=== PATIENT | male | born 1955 | race Caucasian/White ===

== ENCOUNTER 2016-12-15 07:31 | Inpatient (IN) ==
[2016-12-15] MEDS ORDERED: *HR* FentaNYL (PF) 100 MCG/2 ML VIAL ONE (07:50)
[2016-12-15] MEDS ORDERED: Verapamil 5 MG/2 ML VIAL ONE (07:50)
[2016-12-15] MEDS ORDERED: 0.9 % Sodium Chloride 1,000 ML ONE ×3 (07:51→12:23)
[2016-12-15] MEDS ORDERED: Heparin 1,000 UNITS/500 mL NS 500 ML ONE (07:51)
[2016-12-15] MEDS ORDERED: *HR* Midazolam HCl 5 MG/5 ML VIAL IVP ONE (07:51)
[2016-12-15] MEDS ORDERED: *HR* Heparin 10,000 UNIT/10 ML VIAL ONE (07:51)
[2016-12-15] MEDS ORDERED: Nitroglycerin 1,000 MCG/10 ML VIAL IV ONE (07:52)
[2016-12-15] MEDS ORDERED: Tirofiban 12.5 MG/250ML 12.5 MG/250 ML BAG ONE (09:07)
--- NOTE | 2016-12-15 09:39 | Pre-Sedation Evaluation ---
Pre-sedation evaluation - Pre-sedation checklist Date of procedure: 12/15/16 Procedure: [facility] Recent Vitals: vs as documented in emr H&P (including ROS) documented in medical record: Yes Previous reaction to sedatives/anesthetics: No Dietary Status: NPO after Midnight Airway Assessment: Patient can open mouth completely, TMJ function normal Dentition: No loose teeth or bridges ASA Classification *see protocol: CLASS II-Mild systemic disease Plan of Care: Pt appropriate candidate for procedure/moderate/conscious sedation , Risks/benefits of procedure/sedation discussed w/ patient/family
--- NOTE | 2016-12-15 09:45 | Cardiology History & Physical ---
Date of Encounter: 12/15/16 Time of Encounter: 09:40 Assessment and Plan (1) STEMI (ST elevation myocardial infarction) Current Visit: No Status: Acute Anterior current of injury. Proceed with emergent LHC with 1% chance of complications including CVA//MELA/bleeding/contrast allergy/thyroid storm. Aspirin, plavix and heparin were given. EF assessment will be completed. Labs reviewed, EKG independently interpreted. Total critical care time 45 minutes. The assessment and plan as outlined above was discussed with the patient and/or family members who expressed understanding and agreement. All questions were answered. Qualifiers: Involved coronary artery: LAD coronary artery Qualified Code(s): I21.02 - ST elevation (STEMI) myocardial infarction involving left anterior descending coronary artery History of Present Illness HPI: Mr. Do is a 61 year old male with no previous cardiac history presents with severe retrosternal crushing chest pain starting last night and worsening this morning associated with mild dyspnea and dizziness. It radiated into his left arm and is worse with exertion. No significant improvement with NTG/ aspirin. Past Med Surg Social Fam HX - Past Medical History Medical history: GERD, hyperlipidemia, hypertension, migraine Psychiatric history: anxiety, bipolar, depression - Past Surgical History Surgical History: other - Social History Smoking Status: Current every day smoker Smokeless Tobacco Status: No Alcohol use: none Drug use: none Medications and Allergies Atorvastatin [Lipitor] 80 mg PO HS 02/23/16 [History] Lisinopril [Zestril] 20 mg PO DAILY 02/23/16 [History] Omeprazole [PriLOSEC] 20 mg PO DAILY 02/23/16 [History] PARoxetine HCl [Paroxetine HCl] 40 mg PO DAILY 12/15/16 [History] Propranolol LA (24 HR) [Inderal LA] 120 mg PO DAILY 12/15/16 [History] Tamsulosin [Flomax] 0.4 mg PO DAILY 12/15/16 [History] 3 Allergy/AdvReac Type Severity Reaction Status Date / Time Penicillins [PCN] Allergy Hives Verified 02/23/16 22:00 All Systems Review: A 10-system review of systems was performed and is negative for pertinent findings except as documented above in the HPI. - Constitutional Constitutional: no chills, no fever(s) - EENT Eyes: no blurred vision, no loss of vision Nose, mouth and throat: no bleeding gums, no epistaxis - Cardiovascular Cardiovascular: chest pain at rest, chest pain with exertion - Respiratory Respiratory: no hemoptysis, no wheezing - Gastrointestinal Gastrointestinal: no hematemesis, no hematochezia - Genitourinary Genitourinary: no dysuria, no hematuria - Musculoskeletal Musculoskeletal: no arthralgias, no myalgias - Integumentary Integumentary: no erythema, no unusual bruising - Neurological Neurological: no focal weakness, no syncope - Psychiatric Psychiatric: no anxiety, no depression - Hematological/Lymphatic Hematologic/Lymphatic: no easy bleeding, no easy bruising Physical Examination General: Conversant, Other (mildly distressed) HEENT: Atraumatic, Normocephaly Neck: No JVD Cardiac: No Murmur Lungs: Normal Breath Sounds Neuro: Alert and responsive Abdomen: Soft Skin: No rashes noted on visualized skin Musculoskeletal: No Chest Wall Tenderness Extremities: No Edema Results - EKG Interpretation EKG results cardiology: personally reviewed, sinus rhythm (anterior current of injury)
--- NOTE | 2016-12-15 09:52 | Invasive Diagnostic Lab Proc ---
Name: Christopher Do Date of Study: 12/15/2016 Date: 1955 Ht: 64.0in Medical Record#: [id number] Age: 61 Wt: 180.78lb Gender: Male BSA: 1.87 Order #: [id number] BMI: 31.03 Physicians Procedure Physician: Ted Crowe MD, [facility] Referring MD: Referring MD: Staff Name Position Time In Gail Kellogg RT (R) Scrub 09:07 AM Demetrio Zayas RN Home Improvement Contractor 09:08 AM Preeti Wayne RN Home Improvement Contractor 09:08 AM Aleta Steve RN Monitor 09:08 AM Indications Indication STEMI Procedures Performed Procedure PRQ CARD REVASC PR 1 VSL L HRT ARTERY/VENTRICLE ANGIO Pre-Procedure Checklist Informed consent is complete signed and on chart. H&P is on chart. ID band is on and ID verified with patient. Patient NPO for procedure The procedure was described for the patient and questions were answered. Blood Pressure: 130/78 ECG is on chart. Rhythm: NSR Plan of Care Patient will tolerate the procedure without complications. Adequate level of comfort will be maintained. Hemodynamics will remain stable Patient will recover from procedure without complications. Respiratory function will be maintained. Cardiac rhythm will remain stable. Patient temperature will be maintained. Patient and/or family have verbalized understanding of the procedure. Patient Education Chief Complaint/Reason for Test: Cardiac Cath Developmental Category: Adult (18-64 years) Developmentally Appropriate for Age: Yes Learning Barriers: None Education Needs: Procedure Education Method: Verbal Information Taught: Cardiac Cath Educational Evaluation: Able to repeat information Intravenous Access Time IV Size Location DC'd Fluid/Drip Rate Units RN 09:00 AM 20g 1 03/13" Patent On Arrival Rt Antecubital 0.9NaCl 25 ml/hr Allergies PCN (penicillin) Penicillins Vital Signs Time BP (mmHg) HR (bpm) O2 Sat. RR (bpm) LOC 09:04 AM 130 / 78 64 93 % 9 5 = Fully awake and oriented or at pre-proc level 09:09 AM 118 / 77 129 91 % 17 5 = Fully awake and oriented or at pre-proc level 09:14 AM 128 / 78 64 95 % 17 5 = Fully awake and oriented or at pre-proc level 09:19 AM 115 / 74 62 96 % 15 5 = Fully awake and oriented or at pre-proc level 09:24 AM 115 / 80 64 96 % 17 5 = Fully awake and oriented or at pre-proc level 09:29 AM 127 / 82 65 97 % 18 5 = Fully awake and oriented or at pre-proc level Procedural Medications Time Medication Dose Units Method Given By 09:00 AM Oxygen 2 L/min nasal cannula Preeti Wayne RN 09:05 AM Versed 2 mg Intravenous Preeti Wayne RN 09:05 AM Fentanyl 25 mcg Intravenous Preeti Wayne RN 09:10 AM Oxygen 4 L/min nasal cannula Preeti Wayne RN 09:11 AM Lidocaine 2% 20 ml Subcutaneous Ted Crowe MD, FACC 09:16 AM Heparin 3000 units Intravenous Preeti Wayne RN 09:18 AM Aggrastat Bolus: 42 ml Intravenous Preeti Wayne RN 09:18 AM Aggrastat 12.5mg/250ml 15 ml Intravenous Preeti Wayne RN ASA Classification: Emergent Procedure: ASA score is assumed Cierra Score Preprocedure Postprocedure Activity 2- Moves 4 extremities sustained head lift Activity 2- Moves 4 extremities sustained head lift Circulation 2- SBP +/= 20 points of pre-anesthetic level Circulation 2- SBP +/= 20 points of pre-anesthetic level Consciousness 2- Awake and alert oriented x 3 Consciousness 2- Awake and alert oriented x 3 O2 Saturation 2- Able to maintain O2 satruation of 92% on room air O2 Saturation 2- Able to maintain O2 satruation of 92% on room air Respiratory 2- Able to deep breathe and cough well Respiratory 2- Able to deep breathe and cough well Total Score 10 Total Score 10 Contrast Agent: Isovue Diagnostic Contrast: 131 ml Total Contrast: 131 ml Fluoro Dose: 277 mGy Activated Clotting Time Time Seconds to Clot 09:16 AM 210 09:34 AM 248 Procedure Log Time Note Enter By 08:34 AM CathStat 09:00 AM Hair removed from procedure site in procedure lab using clippers. Right wrist and right groin prepped with Chloraprep by Gail Kellogg (R), safety strap applied then patient was draped. Skin intact. ejohnson 09:00 AM Physician arrived 09:00 ejohnson 09:00 AM Felix and benjamín completed ejohnson 09:00 AM Sign in performed according to hospital policy. ejohnson 09:00 AM Time: 09:00 Oxygen on at 2 L/min per nasal cannula by Preeti Wayne RN ejohnson 09:00 AM Procedure start 09:05 ejohnson 09:04 AM Vitals capture started with the following parameters, Patient=Adult, Interval=5 min, Initial Ydtynygr=686 mmHg, Deflation Rate=5 mmHg, Cuff placed on Left Arm 09:04 AM CathStat 09:04 AM Case Start 09:04 AM HR=64 bpm, RKUM=231/78 mmhg, SpO2=93.0 %, Resp=9 B/min, Comment=sr 09:05 AM Time: 09:05 Versed 2 mg Intravenous Given by Preeti Wayne RN ejohnsevelia 09:05 AM Time: 09:05 Fentanyl 25 mcg Intravenous Given by Preeti Wayne RN ejohnson 09:05 AM Pt arrived to [address] at 09:00 ejohnson 09:06 AM Recorded ECG: HR=71 Condition=Condition 1 09:07 AM Pressure channel 3 zeroed. 09:08 AM Gail Kellogg RT (R) Position: Scrub Time in: 09:07 ejohnson 09:08 AM Demetrio Zayas RN Position: Home Improvement Contractor Time in: 09:08 ejohnson 09:08 AM Preeti Wayne RN Position: Home Improvement Contractor Time in: 09:08 ejohnson 09:08 AM Aleta Steve RN Position: Monitor Time in: 09:08 ejohnson 09:09 AM QK=386 bpm, YPXV=485/77 mmhg, SpO2=91.0 %, Resp=17 B/min, Comment=sr 09:11 AM Time: 09:10 Oxygen on at 4 L/min per nasal cannula by Preeti Wayne RN ejohnson 09:11 AM Time: 09:11 20 ml Lidocaine 2% to right groin Subcutaneous Given by Ted Crowe MD, [facility] ejohnson 09:12 AM Access obtained by percutaneous puncture. 6Fr 10cm Terumo [place] sheath placed in right Femoral artery. [id number] ejohnson 09:12 AM 6Fr EBU 3.5 Medtronic guide catheter was used to cannulate the PCI vessel successfully. reused? No ejohnson 09:13 AM Recorded Pressure: Ao, HR=87, Condition=Condition 1 (Aorta) Ao 105/77/91 09:13 AM LCA angiography performed in multiple views. ejohnson 09:14 AM .[address] [place] 150cm guide wire across target lesion- successful. reused? No ejohnson 09:14 AM HR=64 bpm, ETOL=908/78 mmhg, SpO2=95.0 %, Resp=17 B/min, Comment=sr 09:15 AM Inflation device was opened. ejohnson 09:15 AM Coronary Dominance: right ejohnson 09:15 AM Lesion found in Mid LAD. Pre Stenosis: 99 Pre CARLOS Flow: 1: Slow Penetration without Perfusion ejohnson 09:15 AM Lesion found in 1st Diagonal. Pre Stenosis: 90 Pre CARLOS Flow: 3: Complete and Brisk Flow/Perfusion ejohnson 09:15 AM Mid/Distal Left Anterior Descending Coronary Artery and diagonal branches with 99% stenosis. ejohnson 09:16 AM At 09:16 the ACT was 210 seconds. ejohnson 09:16 AM 2.0 mm x 12 mm Emerge Monorail balloon across target lesion- successful. reused? No ejohnson 09:16 AM Time: 09:16 Heparin 3000 units Intravenous Given by Preeti Wayne RN ejohnson 09:17 AM Balloon inflated @ 10 hung for 12 seconds ejohnson 09:18 AM Time: 09:18 Aggrastat Bolus: 42 ml Intravenous Given by Preeti Wayne RN [place] pump ejohnson 09:18 AM Time: 09:18 Aggrastat 12.5mg/250ml 15 ml Intravenous Given by Preeti Wayne RN [place] pump ejohnson 09:18 AM Balloon catheter removed intact. ejohnson 09:19 AM 2.25mm x 24mm Synergy drug-eluting stent across target lesion- successful Lot #[id number] ejohnson 09:19 AM HR=62 bpm, QSBE=905/74 mmhg, SpO2=96.0 %, Resp=15 B/min, Comment=sr 09:21 AM Stent deployed @ 16 hung for 31 seconds ejohnson 09:22 AM Stent delivery system removed intact. ejohnson 09:23 AM Guide wire removed intact. ejohnson 09:23 AM Guide catheter removed intact. ejohnson 09:23 AM Lesion found in Proximal Circumflex. Pre Stenosis: 40 Pre CARLOS Flow: 3: Complete and Brisk Flow/Perfusion ejohnson 09:23 AM Circumflex, Obtuse Marginal, Left Posterior Descending, and Left Posterolateral Coronary Arteries with 40 % stenosis. ejohnson 09:24 AM 5Fr FR 4 catheter inserted over the wire DNC ejohnson 09:24 AM Lesion found in 1st Marginal. Pre Stenosis: 30 Pre CARLOS Flow: 3: Complete and Brisk Flow/Perfusion ejohnson 09:24 AM HR=64 bpm, BZAH=483/80 mmhg, SpO2=96.0 %, Resp=17 B/min, Comment=sr 09:25 AM Recorded Pressure: Ao, HR=66, Condition=Condition 1 (Aorta) Ao 109/86/97 09:25 AM Catheter removed ejohnson 09:25 AM 5Fr Pigtail catheter inserted over the wire DNC ejohnson 09:26 AM Bolus angiogram of left Ventricle complete: 10 ml/sec for a total of 30 mls ejohnson 09:26 AM Lesion found in Mid RCA. Pre Stenosis: 40 Pre CARLOS Flow: 3: Complete and Brisk Flow/Perfusion ejohnson 09:26 AM Pressure channel 3 zero failed. 09:26 AM Pressure channel 3 zeroed. 09:26 AM Recorded Pressure: LV, HR=67, Condition=Condition 1 (Left Ventricle) LV 114/-4/7 09:27 AM Recorded Pressure: LV, Ao, HR=66, Condition=Condition 1 (Left Ventricle) LV 107/-4/10, (Aorta) Ao 94/57/75 09:27 AM Catheter removed ejohnson 09:27 AM Bolus angiogram of right Femoral complete: 2 ml/sec for a total of 4 mls ejohnson 09:27 AM Right Coronary, Right Posterior Descending Arteries with Right Posterolateral and Acute Marginal branches with 40 % stenosis. ejohnson 09:29 AM HR=65 bpm, IEPT=981/82 mmhg, SpO2=97 %, Resp=18 B/min 09:33 AM Procedure completed at 09:30 ejohnson 09:33 AM Sign out completed: Radiation Dose 276.54 mGy Fluoro Time: 3.2 Isovue 370 - 200ml contrast 131 ml given by Ted Crowe MD, FACC. Complications: NoneCardiac Rehab Consult needed: YesConfirmed administered medications: Yes ejohnson 09:33 AM Isovue 370 - 200ml,1 Bottle(s) used. ejohnson 09:33 AM Sheath left in place to be pulled on floor/holding area ejohnson 09:33 AM Post ECG NSR ejohnson 09:33 AM Post Blood Pressure 127/82 ejohnson 09:34 AM 09:33 Post Pulses Bilateral DP & PT 1+ ejohnson 09:34 AM Information taught Cardiac Cath and PCI ejohnson 09:34 AM Education needs Plan of Care and Responsibilities of Patient in Care ejohnson 09:34 AM Learning barriers :None ejohnson 09:34 AM Education Methods Verbal ejohnson 09:34 AM Education evaluation Able to repeat information ejohnson 09:35 AM Site status No bleeding/hematoma - Rt Groin as reported by Gail Kellogg RT (R) at 09:34 ejohnson 09:35 AM Opsite applied ejohnson 09:35 AM Plavix, Effient or Brilinta given Yes, [facility] ejohnson 09:37 AM At 09:34 the ACT was 248 seconds. ejohnson 09:38 AM attempted to call family, patient gave wrong phone number. ejohnson 09:44 AM Family not available, no answer at number given ejohnson 09:44 AM Complications: None ejohnson 09:44 AM Report given to Carmen JOHNSON Pt taken to ICU Room #10. 09:44 ejohnson 09:44 AM Patient out of room: 09:44 ejohnson Complications Complication None Hemodynamics Pressures Site Systolic/A Wave Diastolic/V Wave Mean AO 105 77 91 AO 109 86 97 LV 114 -4 7 LV 107 -4 10 AO 94 57 75 Post Procedure Information Blood Pressure: 127/82 mmHg Rhythm: NSR Post procedural instructions were given Site Checks Time Location Status Staff Sheath In? Note 09:34 AM Rt Groin No bleeding/hematoma Gail Kellogg RT (R) Yes Pulses Time Site Pre-Procedure Post-Procedure Note 12/15/2016 9:00:00 AM Bilateral DP & PT 1+ 9:33:00 AM Bilateral DP & PT 1+ Updated by Aleta Steve RN on 12/15/2016 9:45:36 AM Aleta Steve RN electronically signed on 12/15/2016 9:46:03 AM with status of Final
[2016-12-15] MEDS ORDERED: Nitroglycerin 0.4 MG TAB.SUBL SL PRN (10:07)
[2016-12-15] MEDS ORDERED: *HR* Morphine 2 MG/ML SYRINGE IVP PRN (10:07)
[2016-12-15] MEDS ORDERED: Ondansetron 4 MG/2 ML VIAL IVP PRN (10:07)
[2016-12-15] MEDS ORDERED: Tirofiban 12.5 MG/250ML 12.5 MG/250 ML BAG IVC SCH (10:15)
[2016-12-15] MEDS ORDERED: *HR* HYDROcodone/Acet 5/325 mg TABLET PO PRN (10:16)
[2016-12-15] MEDS ORDERED: *HR* OxyCODONE/APAP 5/325 TABLET PO PRN (10:16)
[2016-12-15] MEDS ORDERED: *HR* Atropine Sulfate 1 MG/10 ML SYRINGE ONE (12:22)
[2016-12-15] MEDS: Acetaminophen 325 MG TABLET PO PRN (20:07)
[2016-12-16 04:26] LABS: Basophils # 0.1 K/mcL (0.0-0.2); Basophils % 0.7 %; Eosinophils # 0.3 K/mcL (0.0-0.6); Eosinophils % 2.5 %; Hematocrit 46.2 % (37.5-50.1); Hemoglobin 15.6 g/dL (12.9-16.9); Immature Granulocytes % 0.6 % (0-4); Lymphocytes # 2.9 K/mcL (0.6-4.6); Lymphocytes % 24.7 %; Mean Corpuscular HGB Conc 33.8 g/dL (31.6-35.5); Mean Corpuscular Hemoglobin 30.5 pg (28.0-33.3); Mean Corpuscular Volume 90.2 fL (83.0-100.0); Mean Platelet Volume 10.9 fL (9.4-12.4); Monocytes # 1.2 K/mcL (0.0-1.3); Monocytes % 10.2 %; Neutrophils # 7.3 K/mcL (1.6-8.9); Platelet Count 201 K/mcL (140-400); Red Blood Count 5.12 M/mcL (4.19-5.50); Red Cell Distribution Width 12.7 % (11.5-14.5); Segmented Neutrophils % 61.3 %
[2016-12-16 04:37] LABS: BUN/Creatinine Ratio 17 (6-26); Blood Urea Nitrogen 14 mg/dL (8-26); Calcium 8.6 mg/dL (8.6-10.8); Carbon Dioxide 20 mEq/L (19-29); Chloride 109 mEq/L (98-109); Glucose 102 mg/dL (70-99); Osmolality,Calculated 283 (280-300); Potassium 4.1 mEq/L (3.5-4.5); Sodium 136 mEq/L (136-145); eGFR For African Americans > 60 (> 60); eGFR For Non-African Americans > 60 (> 60)
[2016-12-16] MEDS ORDERED: Aspirin 81 MG TAB.CHEW PO SCH (09:00)
--- NOTE | 2016-12-16 09:32 | Cardiology Progress Note ---
Date of Encounter: 12/16/16 Time of Encounter: 09:30 Assessment and Plan (1) STEMI (ST elevation myocardial infarction) Current Visit: No Status: Acute Per Cardiology: S/p Anterior STEMI. Trop 0.11. [facility] showed: Lesion Findings/Interventions * Left Main Coronary Artery The LMCA is angiographically free of disease. * Left Anterior Descending There is a 24 mm long, 99% stenosis in the Mid LAD. The lesion has a CARLOS flow of 1 and has thrombus present. An intervention was performed on the Mid LAD with a final stenosis of 0%. There were no lesion complications. The final CARLOS flow was 3. EBU 3.5 guide, [place] wire, 2.25 x 24mm Synergy. See procedure log for further details. * Circumflex There is a 40% stenosis in the Proximal Circumflex. The lesion has a CARLOS flow of 3. There is a 30% stenosis in the mid major Marginal. The lesion has a CARLOS flow of 3. * Right Coronary Artery There is a 40% stenosis in the Mid RCA. The lesion has a CARLOS flow of 3. ECHO: Impressions: LVEF 55-60%. Normal LV chamber size, wall thickness and overall function. Atypical septal motion consistent with bundle branch block. Mild segmental left ventricular systolic dysfunction. Mild left ventricular diastolic dysfunction. Normal right ventricular structure and function. No evidence of pulmonary hypertension. No significant valvular dysfunction. Left Ventricular Wall Motion: Rest Echo Findings The apical septal wall was hypokinetic. All other wall segments showed normal motion. S/p PTCA/MARYAN to mid LAD 99% lesion. On asa, statin, BB. Had plavix load, will add daily plavix, Has CR order. Plan to transfer to floor today, possible DC tomorrow. Qualifiers: Involved coronary artery: LAD coronary artery Qualified Code(s): I21.02 - ST elevation (STEMI) myocardial infarction involving left anterior descending coronary artery (2) Nicotine abuse Current Visit: Yes Status: Acute Per Cardiology: 5 minutes today providing smoking cessation counseling and reinforcement. Patient reports he is quitting effective yesterday. Denies need for patch at this time. Discussion w patient/family: The assessment and plan as outlined above was discussed with the patient and/or family members who expressed understanding and agreement. All questions were answered. Thank you for involving us in the care of your patient. Please call with any questions. Subjective Principal diagnosis: Anterior STEMI Interval history: Patient reports some mild chest soreness intermittently throughout the night, currently resolved. He denies any shortness of breath or palpitations. Denies any concerns from his right wrist or right groin site. Objective Vital Signs, Last 4 Hours Temp Pulse Resp BP Pulse Ox 12/16/16 08:00 74 16 122/88 94 12/16/16 07:43 64 12/16/16 07:33 98.0 F 12/16/16 07:00 58 18 113/82 94 12/16/16 06:00 68 20 111/82 94 General: Conversant, No Apparent Distress HEENT: Atraumatic, Normocephaly, Mucus Membranes Moist Neck: No JVD, Normal carotid pulses Cardiac: Reg Rate and Rhythm, Normal S1 and S2, No Murmur Lungs: Normal Breath Sounds, No Wheeze, Rales, Rhonchi Neuro: Alert and responsive, No focal deficits noted Abdomen: Soft, Non-Tender Skin: No rashes noted on visualized skin, Other (Right wrist site and right groin site intact, mild ecchymosis to right groin, no hematoma, no bleeding, right radial and right dorsalis pedis/right posterior tibial pulses 2+ palpable) Musculoskeletal: No Chest Wall Tenderness Extremities: No Clubbing, No Cyanosis, No Edema, Normal Pulses Results 12/16/16 04:06 12/16/16 04:06 Lab Results Laboratory Tests 12/15/16 07:35 Troponin I 0.11 H* Intake & Output 12/13/16 12/14/16 12/15/16 12/16/16 23:59 23:59 23:59 23:59 Intake Total 840 / 840 240 / 240 Output Total 1750 / 1750 850 / 850 Balance -910 / -910 -610 / -610 Weight 81.647 kg 83.6 kg Active Medications Acetaminophen (Tylenol) 650 mg PO Q6HR PRN PRN Reason: Mild Pain Stop: 06/16/17 10:17 Last Admin: 12/15/16 20:07 Dose: 650 mg Hydrocodone Bitart/Acetaminophen (Rumely 5-325 Mg) 1 tab PO Q4HR PRN PRN Reason: Moderate Pain Stop: 06/16/17 10:17 Aspirin (Aspirin) 81 mg PO DAILY SONAL Stop: 06/17/17 09:01 Last Admin: 12/16/16 08:06 Dose: 81 mg Diphenhydramine HCl (Benadryl) 25 mg PO HS PRN PRN Reason: Insomnia Stop: 06/16/17 10:17 Last Admin: 12/16/16 00:19 Dose: 25 mg Metoprolol Tartrate (Lopressor) 25 mg PO BID SONAL Stop: 06/16/17 21:01 Last Admin: 12/16/16 08:06 Dose: 25 mg Morphine Sulfate (Morphine Sulfate) 4 mg IVP Q3H PRN PRN Reason: Severe Pain (7-10) Stop: 06/16/17 10:08 Nitroglycerin (Nitroglycerin) 0.4 mg SL Q5MIN PRN PRN Reason: Chest Pain Stop: 06/16/17 10:08 Ondansetron HCl (Zofran) 4 mg IVP Q8HR PRN PRN Reason: Nausea And Vomiting Stop: 06/16/17 10:08 Oxycodone/Acetaminophen (Percocet 5/325) 1 each PO Q4HR PRN PRN Reason: Severe Pain Stop: 06/16/17 10:17 Rosuvastatin Calcium (Crestor) 40 mg PO HS SONAL Stop: 06/16/17 21:01 Last Admin: 12/15/16 20:07 Dose: 40 mg - Imaging and Cardiology Cardiac cath: report reviewed - EKG Interpretation EKG results cardiology: other (Telemetry reviewed no events noted. Remains sinus rhythm) Consult Discharge Plan - Plan Referrals: NONE,PCP [Primary Care Provider] -
[2016-12-16] MEDS: Acetaminophen 325 MG TABLET PO PRN (13:14)
[2016-12-16] MEDS ORDERED: Nitroglycerin 0.4 MG TAB.SUBL SL PRN (13:19)
[2016-12-16] MEDS ORDERED: *HR* OxyCODONE/APAP 5/325 TABLET PO PRN (13:19)
[2016-12-16] MEDS ORDERED: Ondansetron 4 MG/2 ML VIAL IVP PRN (13:19)
[2016-12-16] MEDS ORDERED: *HR* HYDROcodone/Acet 5/325 mg TABLET PO PRN (13:19)
[2016-12-16] MEDS ORDERED: Acetaminophen 325 MG TABLET PO PRN (13:19)
--- NOTE | 2016-12-16 13:40 | Electrocardiograph Report ---
[address] [place] [address] Test Date: 2016-12-15 Pat Name: Christopher Do Department: 109 Room: 10 Gender: M Mixer Tender: BROOKE : 1955 Requested By: Ted Crowe Order Number: [id number] Reading MD: Shamika Prieto Measurements Intervals [place] Rate: 59 P: 56 ME: 181 QRS: -22 QRSD: 88 T: 6 QT: 375 QTc: 373 Interpretive Statements SINUS BRADYCARDIA BORDERLINE LEFT AXIS DEVIATION LOW QRS VOLTAGE IN PRECORDIAL LEADS ST DEVIATION AND MODERATE T-WAVE ABNORMALITY, CONSIDER ANTERIOR ISCHEMIA Electronically Signed On 12-16-2016 13:39:13 EDT by Shamika Prieto
--- NOTE | 2016-12-17 08:10 | Discharge Summary ---
Date of Encounter: 12/17/16 Time of Encounter: 08:10 - Discharge Diagnosis (1) STEMI (ST elevation myocardial infarction) Priority: Primary Status: Acute Comments: Presented with acute Anterior STEMI. Qualifiers: Involved coronary artery: LAD coronary artery Qualified Code(s): I21.02 - ST elevation (STEMI) myocardial infarction involving left anterior descending coronary artery (2) Nicotine abuse Priority: Secondary Status: Chronic - Discharge Medications Prescriptions: Nitroglycerin 0.4 mg SL Q5MIN PRN #30 tab.subl PRN Reason: Chest Pain Clopidogrel [Plavix] 75 mg PO DAILY #30 tablet Metoprolol [Lopressor] 25 mg PO BID #60 tablet Rosuvastatin [Crestor] 40 mg PO HS #30 tablet Home Medications: Aspirin 81 mg PO DAILY tab.chew 12/17/16 [Rx] Clopidogrel [Plavix] 75 mg PO DAILY #30 tablet 12/17/16 [Rx] Metoprolol [Lopressor] 25 mg PO BID #60 tablet 12/17/16 [Rx] Nitroglycerin 0.4 mg SL Q5MIN PRN #30 tab.subl 12/17/16 [Rx] Rosuvastatin [Crestor] 40 mg PO HS #30 tablet 12/17/16 [Rx] Allergies/Adverse Reactions: 3 Allergy/AdvReac Type Severity Reaction Status Date / Time Penicillins [PCN] Allergy Hives Verified 02/23/16 22:00 Procedures/tests Complete & Pending: Procedures Performed prior 72 hours Category Date Time Status CL Cardiac Catheterization [CL] Stat Ginger Farmer 12/15/16 08:23 Completed ECG 12 lead ECG [ECG] Routine Y 12/16/16 07:00 Stop Req ECG 12 lead ECG [ECG] Stat Y 12/15/16 09:56 Completed EV echocardiogram Routine Y 12/15/16 09:56 Completed Date of admission: 12/15/16 09:40 Primary care physician: PCP NONE Consults: 12/15/16 09:56 Consult to Cardiac Rehabilitation-Phase1 [CONS] Routine Comment: Reason for Consult: AMI Call Completed: Yes Consult to Nurse Navigator [CONS] Routine Comment: Discharging clinician: Wily Eller Anticipated date of discharge: 12/17/16 - Patient Status Disposition: Home, Self-Care Condition: Good Functional capacity at discharge: independent ambulation Overall status at discharge: patient is progressing back to baseline - Discharge Instructions Follow Up With: NONE,PCP [Primary Care Provider] - Additional Instructions: RISK FACTORS: STOP SMOKING: If you smoke, STOP. Smoking or tobacco use significantly increases your risk of heart disease because nicotine causes the arteries to narrow or constrict. It also causes fats to stick to the artery. Your chances of having a heart attack are greatly increased if you continue to smoke. For more information, call the education line for smoking cessation 7-562-ILBJLCA EAT A LOW FAT/CHOLESTEROL/SODIUM DIET: This diet may help reduce your chances of having a heart attack. LIFTING: Avoid lifting anything more than 10 pounds for 5-7 days Prior to straining, laughing, sneezing and/or coughing, apply manual pressure directly over insertion site. ACTIVITY: You may walk or climb stairs as tolerated You can resume sexual activity as tolerated In general, you are encouraged to engage in a minimum of 30 minutes or more of moderate intensity physical activity, such as brisk walking, daily or at least 3 -4 times weekly BATHING Do not submerge the site into water (bath tub, hot tub, swimming pool) for 1 week. This can be a source for infection into the blood stream. You may shower after 24 hours SITE CARE: After 24 hours, you may remove the dressing and leave the site open to air. Keep the site clean and dry. Clean gently and pat dry. You can expect bruising and tenderness that gradually resolve within a week or two. Return to work as instructed per your physician Resume driving as instructed per physician Keep all scheduled follow up appointments Resume medications as instructed IMPORTANT: If prescribed a Platelet Aggregation Inhibitor such as, Plavix, Brilinta or Effient: Duration of therapy is minimum one year These medications are often used in combination with Aspirin in prevention of future heart attacks Never discontinue unless consult with your Ending Machine Operator STROKE (CVA) Risk factors for a stroke are: Age, cigarette smoking, diabetes, excessive alcohol consumption, family history, high blood pressure, overweight, physical inactivity, prior stroke, heart attack, diagnosis of carotid artery stenosis or other artery disease. Warning signs: Sudden numbness or weakness of the face, arm or leg; especially on one side of the body, sudden confusion, trouble speaking or understanding, sudden trouble seeing in one or both eyes, sudden trouble walking, dizziness, loss of balance or coordination, sudden severe headache with no cause. Call 911 or go to the Emergency Room. CONGESTIVE HEART FAILURE: If you have been diagnosed with Congestive Heart Failure (CHF) and your symptoms return, make an appointment with your physician Weigh yourself daily. Notify your physician if you have a weight gain of two or more pounds in one day or five or more pounds in one week. If you experience any difficulty breathing, please call 911 BLEEDING: Although the risk of bleeding is minimal, it can happen. If you have any bleeding from the site, apply firm pressure above the puncture site for 10-15 minutes. If the bleeding does not stop, continue manual pressure and call 911 Contact your physician if: You develop a fever greater than 101 degrees Fahrenheit Your site becomes reddened or has any drainage You have an increase in pain or burning at the site or if a large knot forms at the site. If you experience chest pain, shortness of breath, dizziness, or extreme tiredness, stop the activity and rest. Please notify your physicians office if you experience any of these symptoms and they are not relieved by rest please call 911! - Diet and Activity Diet: low fat, low cholesterol, low salt diet - Hospital Course Hospital course: Mr. Do is a 61 year old male presented as a transfer from [place] with anterior STEMI with troponin of 0.11 and status post left heart catheterization with S/p PTCA/MARYAN to mid LAD 99% lesion. No events noted on telemetry Echo completed and shows LVEF 55-60%, No significant valvular dysfunction. Prepping for DC to home in stable condition. Education provided regarding post cath and [place] care. Smoking cessation counseling reinforced. CP free. All questions answered. Educated on meds and aware to not stop asa/plavix for at least 1 year. Time spent discussing smoking cessation with patient: 3 to 10 minutes - Time Spent with Patient Total time spent providing and/or coordinating discharge services: Less than 30 minutes Physical Examination Vital Signs, Last 4 Hours Temp Pulse Resp BP Pulse Ox 12/17/16 06:59 97.8 F 88 12 108/78 98 12/17/16 04:39 97.8 F 62 14 105/72 97 General: Conversant, No Apparent Distress HEENT: Atraumatic, Normocephaly, Mucus Membranes Moist Neck: No JVD, Normal carotid pulses Cardiac: Reg Rate and Rhythm, Normal S1 and S2, No Murmur Lungs: Normal Breath Sounds, No Wheeze, Rales, Rhonchi Neuro: Alert and responsive, No focal deficits noted Abdomen: Soft, Non-Tender Skin: No rashes noted on visualized skin Musculoskeletal: No Chest Wall Tenderness Extremities: No Clubbing, No Cyanosis, No Edema, Normal Pulses
[2016-12-17] MEDS ORDERED: Aspirin 81 MG TAB.CHEW PO SCH (09:00)
[2016-12-17 10:30] VITALS: BP 114/73
== END 2016-12-17 12:35 | disposition home or self-care (01) | DRG 174 ==
LOC: ICNU 09:40 → 2NENU 12-16 18:11
PROVIDERS: ADMIT Emergency Medicine; ATTEND Emergency Medicine

== ENCOUNTER → 2017-01-30 18:02 | Observation (INO) ==
[2017-01-30 03:47] LABS: Basophils # 0.1 K/mcL (0.0-0.2); Basophils % 0.6 %; Eosinophils # 0.3 K/mcL (0.0-0.6); Eosinophils % 3.1 %; Hematocrit 40.1 % (37.5-50.1); Hemoglobin 13.8 g/dL (12.9-16.9); Immature Granulocytes % 0.4 % (0-4); Immature Platelets 5.7 % (1.1-6.1); Lymphocytes # 3.1 K/mcL (0.6-4.6); Lymphocytes % 31.9 %; Mean Corpuscular HGB Conc 34.4 g/dL (31.6-35.5); Mean Corpuscular Hemoglobin 31.4 pg (28.0-33.3); Mean Corpuscular Volume 91.3 fL (83.0-100.0); Mean Platelet Volume 10.5 fL (9.4-12.4); Monocytes % 10.2 %; Neutrophils # 5.2 K/mcL (1.6-8.9); Platelet Count 191 K/mcL (140-400); Red Blood Count 4.39 M/mcL (4.19-5.50); Red Cell Distribution Width 12.5 % (11.5-14.5); Segmented Neutrophils % 53.8 %
[2017-01-30 03:58] LABS: BUN/Creatinine Ratio 22 (6-26); Blood Urea Nitrogen 18 mg/dL (8-26); Calcium 8.6 mg/dL (8.6-10.8); Carbon Dioxide 20 mEq/L (19-29); Chloride 110 mEq/L (98-109); Glucose 96 mg/dL (70-99); Osmolality,Calculated 284 (280-300); Potassium 4.2 mEq/L (3.5-4.5); Sodium 136 mEq/L (136-145); eGFR For African Americans > 60 (> 60); eGFR For Non-African Americans > 60 (> 60)
--- NOTE | 2017-01-30 13:05 | Cardiology Consult Note ---
Date of Encounter: 01/30/17 Time of Encounter: 12:30 Assessment and Plan (1) Chest pain Current Visit: No Status: Acute Per Cardiology: 1 episode of chest pain with mild exertional activity with improvement with nitroglycerin pills. Troponins negative 2. ECG actually appears improved from previous baseline ECG at time of STEMI. Currently chest pain-free. Reviewed and discussed with Dr. Crowe, recommend addition of long-acting nitrate. Patient agreeable. Cardiology will sign off, reconsult as needed, follow-up scheduled. Qualifiers: Ischemic chest pain type: unspecified angina pectoris type Qualified Code(s ): I20.9 - Angina pectoris, unspecified (2) CAD (coronary artery disease) Current Visit: Yes Status: Chronic Per Cardiology: Recent STEMI with peak troponin 0.18 December 2016. Catheterization at that time showed mid LAD 99% lesion status post drug-eluting stent. Otherwise had nonobstructive CAD with proximal circumflex 40%, OM 3%, mid RCA 40%. Echo at that time showed EF preserved at 55-60%, and no significant valvular dysfunction , no pulmonary hypertension. On aspirin, Plavix, statin, beta anam. Qualifiers: Coronary Disease-Associated Artery/Lesion type: [place] artery [place] vs. transplanted heart: [place] heart Associated angina: angina presence unspecified Qualified Code(s): I25.10 - Atherosclerotic heart disease of [place] coronary artery without angina pectoris (3) Nicotine abuse Current Visit: No Status: Chronic Per Cardiology: Smoking cessation reinforced. Discussion w patient/family: The assessment and plan as outlined above was discussed with the patient who expressed understanding and agreement. All questions were answered. Thank you for involving us in the care of your patient. Please call with any questions. History of Present Illness Consult date: 01/30/17 Requesting physician: Keith Gamble Consult reason: CP Chief complaint: CP History of present illness: Mr. Do is a 61 year old male with a relevant past mental history of nicotine abuse, GERD, and recent STEMI December 2016. Cardiology consult for chest pain symptoms. Patient reports compliance with medications. Denies any concerns or complaints until yesterday when he was walking across his hallway and developed midsternal and bilateral upper shoulder "heaviness and achiness ". He reports symptoms similar to be expressed with his ID last month. Reports it lasted for about 10- 15 minutes total. Reports relief with one subinguinal nitroglycerin pill. Has not been utilizing prior to this event. He denies any dizziness, shows breath, palpitations, syncope, falls. Denies any active bleeding or blood loss. Denies any acute infectious process. Currently chest pain-free. He does report intermittent headaches over the past few weeks. Past Med Surg Social Fam HX - Past Medical History Source: patient, old records reviewed Medical history: GERD, hyperlipidemia, hypertension, migraine Psychiatric history: anxiety, bipolar, depression - Past Surgical History Surgical History: other - Social History Smoking Status: Former smoker Smokeless Tobacco Status: No Alcohol use: none Drug use: none - Family History Mother History Unknown: Yes Living Status: Hx Family Cancer: Yes Father History Unknown: Yes Living Status: Medications and Allergies Aspirin 81 mg PO DAILY tab.chew 12/17/16 [Rx] Clopidogrel [Plavix] 75 mg PO DAILY #30 tablet 12/17/16 [Rx] Metoprolol [Lopressor] 25 mg PO BID #60 tablet 12/17/16 [Rx] Nitroglycerin 0.4 mg SL Q5MIN PRN #30 tab.subl 12/17/16 [Rx] Atorvastatin [Lipitor] 80 mg PO HS 01/29/17 [History] raNITIdine HCl [Ranitidine HCl] 150 mg PO HS 01/29/17 [History] 3 Allergy/AdvReac Type Severity Reaction Status Date / Time Penicillins [PCN] Allergy Hives Verified 01/30/17 10:52 All Systems Review: A 10-system review of systems was performed and is negative for pertinent findings except as documented above in the HPI. - Cardiovascular Cardiovascular: as per HPI, chest pain with exertion Physical Examination Vital Signs, Last 4 Hours Temp Pulse Resp BP Pulse Ox 01/30/17 11:13 98.2 F 58 17 104/66 94 General: Conversant, No Apparent Distress HEENT: Atraumatic, Normocephaly, Mucus Membranes Moist Neck: No JVD, Normal carotid pulses Cardiac: Reg Rate and Rhythm, Normal S1 and S2, No Murmur Lungs: Normal Breath Sounds, No Wheeze, Rales, Rhonchi Neuro: Alert and responsive, No focal deficits noted Abdomen: Soft, Non-Tender Skin: No rashes noted on visualized skin Musculoskeletal: No Chest Wall Tenderness Extremities: No Clubbing, No Cyanosis, No Edema, Normal Pulses Results 01/30/17 03:40 01/30/17 03:40 Lab Results Laboratory Tests 01/30/17 01/30/17 01/30/17 03:40 03:40 10:14 Magnesium 2.0 Troponin I 0.01 0.00 Active Medications Acetaminophen (Tylenol) 650 mg PO Q6HR PRN PRN Reason: Mild Pain (1-3) Stop: 08/01/17 03:31 Aspirin (Aspirin) 81 mg PO DAILY [facility] Stop: 08/01/17 09:01 Last Admin: 01/30/17 08:07 Dose: 81 mg Atorvastatin Calcium (Lipitor) 80 mg PO HS [facility] Stop: 08/01/17 21:01 Clopidogrel Bisulfate (Plavix) 75 mg PO DAILY [facility] Stop: 08/01/17 09:01 Last Admin: 01/30/17 08:07 Dose: 75 mg Famotidine (Pepcid) 20 mg PO HS [facility] Stop: 08/01/17 21:01 Sodium Chloride (0.9 % Sodium Chloride) 1,000 mls @ 100 mls/hr IVC .Q10H [facility] Stop: 01/30/17 23:29 Last Admin: 01/30/17 03:49 Dose: 100 mls/hr Isosorbide Mononitrate (Imdur) 30 mg PO DAILY [facility] Stop: 08/01/17 13:16 Metoprolol Tartrate (Lopressor) 25 mg PO BID [facility] Stop: 08/01/17 09:01 Last Admin: 01/30/17 08:07 Dose: 25 mg Morphine Sulfate (Morphine Sulfate) 2 mg IVP Q4HR PRN PRN Reason: Severe Pain (7-10) Stop: 08/01/17 03:31 Naloxone HCl (Narcan) 0.4 mg IVP Q2MIN PRN PRN Reason: Opioid Reversal Stop: 08/01/17 03:31 Nitroglycerin (Nitroglycerin) 0.4 mg SL Q5MIN PRN PRN Reason: Chest Pain Stop: 08/01/17 03:30 Ondansetron HCl (Zofran) 4 mg IVP Q8HR PRN PRN Reason: Nausea And Vomiting Stop: 08/01/17 03:31 - Imaging and Cardiology Echo: report reviewed Cardiac cath: report reviewed - EKG Interpretation EKG results cardiology: personally reviewed (SR Flipped T waves V1 through V5-- ECG appears improved from previous baseline ECG last month.) Consult Discharge Plan - Plan Referrals: Constance Mckeon CNP [Primary Care Provider] -
[2017-01-30 15:00] VITALS: BP 111/71
--- NOTE | 2017-01-30 16:26 | Discharge Summary ---
Date of Encounter: 01/30/17 Time of Encounter: 16:19 - Discharge Diagnosis (1) Chest pain Priority: Primary Status: Acute Qualifiers: Ischemic chest pain type: unspecified angina pectoris type Qualified Code(s ): I20.9 - Angina pectoris, unspecified (2) Nicotine abuse Priority: Secondary Status: Chronic (3) CAD (coronary artery disease) Priority: Secondary Status: Chronic Qualifiers: Coronary Disease-Associated Artery/Lesion type: [place] artery [place] vs. transplanted heart: [place] heart Associated angina: angina presence unspecified Qualified Code(s): I25.10 - Atherosclerotic heart disease of [place] coronary artery without angina pectoris - Discharge Medications Prescriptions: Nitroglycerin 0.4 mg SL Q5MIN PRN #30 tab.subl PRN Reason: Chest Pain Isosorbide MONOnitrate (24 HR) [Imdur] 30 mg PO DAILY #30 tab.er.24h Home Medications: Aspirin 81 mg PO DAILY tab.chew 12/17/16 [Rx] Clopidogrel [Plavix] 75 mg PO DAILY #30 tablet 12/17/16 [Rx] Metoprolol [Lopressor] 25 mg PO BID #60 tablet 12/17/16 [Rx] Atorvastatin [Lipitor] 80 mg PO HS 01/29/17 [History] raNITIdine HCl [Ranitidine HCl] 150 mg PO HS 01/29/17 [History] Acetaminophen [Tylenol] 650 mg PO Q6HR PRN tablet 01/30/17 [Rx] Isosorbide MONOnitrate (24 HR) [Imdur] 30 mg PO DAILY #30 tab.er.24h 01/30/17 [ Rx] Nitroglycerin 0.4 mg SL Q5MIN PRN #30 tab.subl 01/30/17 [Rx] Allergies/Adverse Reactions: 3 Allergy/AdvReac Type Severity Reaction Status Date / Time Penicillins [PCN] Allergy Hives Verified 01/30/17 10:52 Date of admission: 01/30/17 00:58 Primary care physician: Constance Mckeon CNP Consults: 01/30/17 03:32 Consult to Physician [CONS] Routine Consulting Provider: Amanda Mueller Reason for Consult: CP, recent STEMI and stent Call Completed: No Discharging clinician: Laura Blanco Anticipated date of discharge: 01/30/17 - Patient Status Disposition: Home, Self-Care Condition: Good Overall status at discharge: patient is progressing back to baseline - Discharge Instructions Follow Up With: Constance Mckeon CNP [Primary Care Provider] - - Diet and Activity Activity: resume usual activities as tolerated Diet: advance to your usual diet, low fat, low cholesterol, low salt diet Hospital course: Mr. Do is a 61 year old male recently had an HI and was seen by cardiology with stent placement and been started on beta anam and aspirin and Plavix. He came in with chest pain but troponins were negative as well as EKG. Cardiology is comfortable to discharge him. He has been started on long and nitrates. Prescription given. Strongly recommended to quit smoking and talked to his family doctor in this regard and use Nicotine patch - Time Spent with Patient Total time spent providing and/or coordinating discharge services: Greater than 30 minutes - Constitutional Vitals: Temp Pulse Resp BP Pulse Ox 97.6 F 86 16 111/71 95 01/30/17 14:59 01/30/17 14:59 01/30/17 14:59 01/30/17 14:59 01/30/17 14:59 - Head Head exam: Present: atraumatic, normocephalic - Eye Eye exam: Present: PERRL, conjuntiva pink, sclera anicteric Pupils: Present: PERRL - Neck Neck exam general surgery: Present: supple, trachea midline. Absent: lymphadenopathy - Respiratory Respiratory exam: Present: CTAB. Absent: accessory muscle use, rales, rhonchi, wheezes - Cardiovascular Cardiovascular exam: Present: RRR, +S1, +S2. Absent: diastolic murmur, gallop, rubs, systolic murmur - GI/Abdominal GI/Abdominal exam: Present: normal bowel sounds, soft, no peritoneal signs. Absent: distended, tenderness - Extremities Exam Extremities exam: Present: warm, radial pulses palpable and symmetrical. Absent : calf tenderness, cyanotic, pedal edema - Neurological Exam Neurological exam: Present: CN II-XII intact, oriented X3, no focal deficits. Absent: pronater drift, facial droop, speech deficit - Skin Skin exam: Present: dry, intact
[~2017-01-30 18:02] MED LIST: *HR* Morphine 2 MG/ML SYRINGE IVP PRN; 0.9 % Sodium Chloride 1,000 ML IVC SCH; Acetaminophen 325 MG TABLET PO PRN; Aspirin 81 MG TAB.CHEW PO SCH; Famotidine 20 MG TABLET PO SCH; Isosorbide MONOnitrate (24 HR) 30 MG TAB.ER.24H PO SCH; Naloxone 0.4 MG/ML INJ IVP PRN; Nitroglycerin 0.4 MG TAB.SUBL SL PRN; Ondansetron 4 MG/2 ML VIAL IVP PRN
--- NOTE | 2017-01-31 07:38 | Internal Med History&Physical ---
Date of Encounter: 01/30/17 Time of Encounter: 03:00 Assessment and Plan (1) Precordial chest pain Status: Acute We will place the patient on observation. Trend troponin. Monitor on telemetry. Given recent history of acute CO we will consult cardiology. Will use nitroglycerin for chest pain. (2) CAD (coronary artery disease) Status: Chronic Continue with aspirin and Plavix and metoprolol. Qualifiers: Coronary Disease-Associated Artery/Lesion type: [place] artery [place] vs. transplanted heart: [place] heart Associated angina: angina presence unspecified Qualified Code(s): I25.10 - Atherosclerotic heart disease of [place] coronary artery without angina pectoris (3) Nicotine abuse Status: Chronic I have reinforced the importance of smoking cessation for cardiovascular health. He has quit smoking 1 month ago and withdrawal symptoms have resolved. Internal Medicine - H&P: HPI Chief complaint: Chest pain Admitted From: Emergency Dept Plans for Post Hospital Care: Home History of present illness: Mr. Do is a 61 year old male with past medical history significant for coronary artery disease status post STEMI and stent placement one month ago, prior tobacco abuse who presented to the hospital for further evaluation of chest pain which started 1 day ago, located in the midsternal area, 7/10 in intensity, described as heaviness and associated with mild lightheadedness. Pain improved with nitroglycerin at home however it soon recurred. He presented to [facility] and an EKG showed nonspecific T-wave changes. Patient was referred for transfer to our hospital. Social history: Prior smoker, quit 1 month ago, denies alcohol and drug use Family history: Pertinent for 2 siblings suffered with myocardial infarction. Past Med Surg Social Fam HX - Past Medical History Medical history: GERD, hyperlipidemia, hypertension, migraine Psychiatric history: anxiety, bipolar, depression - Past Surgical History Surgical History: other - Social History Smoking Status: Former smoker Smokeless Tobacco Status: No Alcohol use: none Drug use: none - Family History Mother History Unknown: Yes Living Status: Hx Family Cancer: Yes Father History Unknown: Yes Living Status: Internal Medicine - H&P: Meds Aspirin 81 mg PO DAILY tab.chew 12/17/16 [Rx] Clopidogrel [Plavix] 75 mg PO DAILY #30 tablet 12/17/16 [Rx] Metoprolol [Lopressor] 25 mg PO BID #60 tablet 12/17/16 [Rx] Atorvastatin [Lipitor] 80 mg PO HS 01/29/17 [History] raNITIdine HCl [Ranitidine HCl] 150 mg PO HS 01/29/17 [History] Acetaminophen [Tylenol] 650 mg PO Q6HR PRN tablet 01/30/17 [Rx] Isosorbide MONOnitrate (24 HR) [Imdur] 30 mg PO DAILY #30 tab.er.24h 01/30/17 [ Rx] Nitroglycerin 0.4 mg SL Q5MIN PRN #30 tab.subl 01/30/17 [Rx] 3 Allergy/AdvReac Type Severity Reaction Status Date / Time Penicillins [PCN] Allergy Hives Verified 01/30/17 10:52 All Systems PM: A 10-system review of systems was performed and is negative for pertinent findings except as documented above in the HPI. - Constitutional Vitals: Temp Pulse Resp BP Pulse Ox 97.6 F 86 16 111/71 95 01/30/17 14:59 01/30/17 14:59 01/30/17 14:59 01/30/17 14:59 01/30/17 14:59 General appearance: Present: A&O X 3 - Respiratory Respiratory exam: Present: CTAB. Absent: accessory muscle use, rales, rhonchi, wheezes - Cardiovascular Cardiovascular exam: Present: RRR, +S1, +S2. Absent: diastolic murmur, gallop, rubs, systolic murmur - GI/Abdominal GI/Abdominal exam: Present: normal bowel sounds, soft, no peritoneal signs. Absent: distended, tenderness - Extremities Exam Extremities exam: Present: warm, radial pulses palpable and symmetrical. Absent : calf tenderness, cyanotic, pedal edema - Skin Skin exam: Present: dry, intact Internal Med - H&P Results - Labs CBC & Chem 7: 01/30/17 03:40 01/30/17 03:40 Labs: Cardiac Enzymes 01/30/17 Range/Units 10:14 Troponin I 0.00 (0-0.03) ng/mL - EKG Data -: EKG Interpreted by Myself EKG shows normal: sinus rhythm (T-wave inversion in V2 to V5)
== END | disposition home or self-care (01) ==
LOC: 3NENU
PROVIDERS: ADMIT Internal Medicine; ATTEND Hospitalist

== ENCOUNTER 2017-03-31 11:21 | Observation (INO) ==
[2017-03-31] MEDS: Nitroglycerin 0.4 MG TAB.SUBL SL ONE ×2 (11:47→11:56)
--- NOTE | 2017-03-31 11:49 | Emergency Department Note ---
Disposition Clinical Impression: Unstable angina, Nausea Disposition: Admitted As Inpatient Condition: Fair Time of Disposition: 13:57 Chest Pain HPI - General Chief Complaint: ED Chest Pain Stated Complaint: C/P-SOB Vital Signs Reviewed: Yes Nursing Notes Reviewed: Yes - History of Present Illness HPI Narrative: 62-year-old male complains of chest pressure 8/10 across his chest and radiation to both shoulders that started one day ago. Patient states symptoms woke him from sleep at 0500 hrs yesterday. Symptoms would last for about 30 minutes and go away for 30 minutes. Patient states pain woke him from sleep again this morning at 0500 hrs, which was 6 hours ago, and has not gone away since. Patient states this is his anginal equivalent. Patient status post stent for TN 3 months ago. Stent placement by Dr. Crowe of cardiology Severity scale (1-10): 5 - Related Data Home Medications Medication Instructions Recorded Confirmed Atorvastatin [Lipitor] 80 mg PO HS 01/29/17 03/31/17 raNITIdine HCl [Ranitidine HCl] 150 mg PO HS 01/29/17 03/31/17 Amlodipine Besylate 2.5 mg PO DAILY 03/31/17 03/31/17 Previous Rx's Medication Instructions Recorded Aspirin 81 mg PO DAILY tab.chew 12/17/16 Clopidogrel [Plavix] 75 mg PO DAILY #30 tablet 12/17/16 Metoprolol [Lopressor] 25 mg PO BID #60 tablet 12/17/16 Acetaminophen [Tylenol] 650 mg PO Q6HR PRN tablet 01/30/17 Isosorbide MONOnitrate (24 HR) 30 mg PO DAILY #30 tab.er.24h 01/30/17 [Imdur] Nitroglycerin 0.4 mg SL Q5MIN PRN #30 tab.subl 01/30/17 Allergies Allergy/AdvReac Type Severity Reaction Status Date / Time Penicillins [PCN] Allergy Hives Verified 01/30/17 10:52 All systems ED: reviewed and negative except as stated. Review of Systems: As Per HPI Constitutional: Denies: fever, chills, weakness ENT ED: Denies: congestion Cardiovascular: Reports: chest pain. Denies: palpitations Respiratory: Denies: cough, dyspnea, wheezes Gastrointestinal: Reports: nausea, vomiting. Denies: abdominal pain, diarrhea Genitourinary: Denies: urgency, dysuria Musculoskeletal: Denies: back pain Integumentary: Reports: other (diaphoresis). Denies: rash Neurological: Denies: headache Chest Pain PMH - Past Medical History Medical history: Reports: GERD, hyperlipidemia, hypertension, migraine Surgical history: Reports: other Psychiatric history: Reports: anxiety, bipolar, depression - Social History Smoking Status: Former smoker Alcohol use: Reports: none Drug use: Reports: none Physical Exam Vital Signs Temperature 97.9 F 03/31/17 11:23 Pulse Rate 99 03/31/17 11:23 Respiratory Rate 18 03/31/17 11:23 Blood Pressure 136/98 03/31/17 11:23 O2 Sat by Pulse Oximetry 94 03/31/17 11:23 Temperature 97.9 F 03/31/17 11:23 Pulse Rate 91 03/31/17 13:26 Respiratory Rate 24 03/31/17 13:26 Blood Pressure 123/85 03/31/17 13:26 O2 Sat by Pulse Oximetry 92 03/31/17 13:26 Oxygen Delivery Oxygen Delivery Room Air 62-year-old male was alert and oriented 3 and appears to be in acute distress secondary to his chest discomfort. Patient has no conversational dyspnea. Patient places the palm of his hand over the center part of his chest as he describes his discomfort. Patient currently nondiaphoretic. Patient has normal vital signs - General Limitations: no limitations General appearance: alert, in no apparent distress - Head Head exam: atraumatic, normocephalic, normal inspection - Eye Eye exam: Present: normal appearance, PERRL, EOMI - ENT ENT exam: normal exam, normal oropharynx, mucous membranes moist - Neck Neck exam: Present: normal inspection, full ROM, trachea midline - Chest Chest inspection: Present: normal inspection, symmetric chest wall rise - Respiratory Respiratory exam: Present: normal lung sounds bilaterally - Cardiovascular Cardiovascular exam: Present: regular rate, normal rhythm, normal heart sounds - Abdominal Exam Abdominal exam: Present: soft, Non-Tender. Absent: tenderness, distention, guarding, rebound, rigidity - Extremities Exam Extremities exam: Present: normal inspection, full ROM, normal capillary refill. Absent: tenderness, pedal edema - Back Exam Back exam: Present: normal inspection, full ROM. Absent: tenderness, CVA tenderness (R), CVA tenderness (L) - Neurological Exam Neurological exam: Present: alert, oriented X3 - Skin Skin exam: Present: warm, dry, intact, normal color Course - Reevaluation(s) Reevaluation #1: Pain level 2/10 after first nitroglycerin and has second nitroglycerin on board will recheck in 5 minutes. Time: 11:50 Vital Signs Temperature 97.9 F 03/31/17 11:23 Pulse Rate 99 03/31/17 11:23 Respiratory Rate 18 03/31/17 11:23 Blood Pressure 136/98 03/31/17 11:23 O2 Sat by Pulse Oximetry 94 03/31/17 11:23 Temperature 98.7 F 03/31/17 20:17 Pulse Rate 81 03/31/17 20:17 Respiratory Rate 16 03/31/17 20:17 Blood Pressure 119/80 03/31/17 20:17 O2 Sat by Pulse Oximetry 95 03/31/17 20:17 Oxygen Delivery Oxygen Delivery Nasal Cannula Chest Pain - MDM Narrative Medical decision making narrative: Differential diagnoses for chest pain: ACS/TN, PE, aortic dissection, heart failure, unstable angina, NSTEMI Patient has a Heartscore of 5 without troponin. 1249 hrs.: Patient currently has no concerning lab findings on BMP. CBC shows a WBC of 16.0. Patient's chest x-ray shows no widening of the mediastinum, obscuring of aortic knob, consolidations or pneumothorax. 1257 hrs.: Patient states his chest pain is increasing. EKG taken shows no change from previous EKG. Patient will be given a third nitroglycerin and Nitropaste after a fluid bolus 1 L NS because patient's blood pressure is 107/ 73 and at risk for being hypotensive. Dr. Camejo the hospitalist as accepted patient for admission at 1345 hrs. - Lab Data Result diagrams: 03/31/17 11:44 03/31/17 11:44 Lab Results 03/31/17 03/31/17 03/31/17 Range/Units 11:44 11:44 11:44 WBC 16.0 H (4.3-11.1) K/mcL RBC 5.90 H (4.19-5.50) M/mcL Hgb 18.1 H D (12.9-16.9) g/dL Hct 53.2 H (37.5-50.1) % MCV 90.2 (83.0-100.0) fL MCH 30.7 (28.0-33.3) pg MCHC 34.0 (31.6-35.5) g/dL RDW 12.6 (11.5-14.5) % Plt Count 216 (140-400) K/mcL MPV 10.7 (9.4-12.4) fL Immature Gran % 0.5 (0-4) % Seg Neutrophils % 85.7 % Lymphocytes % 7.4 % Monocytes % 5.4 % Eosinophils % 0.7 % Basophils % 0.3 % Neutrophils # 13.7 H (1.6-8.9) K/mcL Lymphocytes # 1.2 (0.6-4.6) K/mcL Monocytes # 0.9 (0.0-1.3) K/mcL Eosinophils # 0.1 (0.0-0.6) K/mcL Basophils # 0.1 (0.0-0.2) K/mcL PT 11.3 (9.4-12.1) Seconds INR 1.1 Sodium 136 (136-145) mEq/L Potassium 4.4 (3.5-5.1) mEq/L Chloride 111 H (98-107) mEq/L Carbon Dioxide 15 L (23-29) mEq/L BUN 23 (8-23) mg/dL Creatinine 0.98 (0.70-1.30) mg/dL Est GFR ( Amer) > 60 (> 60) Est GFR (Non-Af Amer) > 60 (> 60) BUN/Creatinine Ratio 23 (6-26) Glucose 140 H (70-105) mg/dL Calculated Osmolality 288 (280-300) Calcium 9.4 (8.6-10.3) mg/dL Troponin I (< 0.04) ng/mL 03/31/17 Range/Units 11:44 WBC (4.3-11.1) K/mcL RBC (4.19-5.50) M/mcL Hgb (12.9-16.9) g/dL Hct (37.5-50.1) % MCV (83.0-100.0) fL MCH (28.0-33.3) pg MCHC (31.6-35.5) g/dL RDW (11.5-14.5) % Plt Count (140-400) K/mcL MPV (9.4-12.4) fL Immature Gran % (0-4) % Seg Neutrophils % % Lymphocytes % % Monocytes % % Eosinophils % % Basophils % % Neutrophils # (1.6-8.9) K/mcL Lymphocytes # (0.6-4.6) K/mcL Monocytes # (0.0-1.3) K/mcL Eosinophils # (0.0-0.6) K/mcL Basophils # (0.0-0.2) K/mcL PT (9.4-12.1) Seconds INR Sodium (136-145) mEq/L Potassium (3.5-5.1) mEq/L Chloride (98-107) mEq/L Carbon Dioxide (23-29) mEq/L BUN (8-23) mg/dL Creatinine (0.70-1.30) mg/dL Est GFR ( Amer) (> 60) Est GFR (Non-Af Amer) (> 60) BUN/Creatinine Ratio (6-26) Glucose (70-105) mg/dL Calculated Osmolality (280-300) Calcium (8.6-10.3) mg/dL Troponin I < 0.03 (< 0.04) ng/mL - Radiology Data Radiology results reviewed: Yes I reviewed the patient's radiology results. Chest X-Ray 03/31/17 11:36 IMPRESSION: 1. No radiographic abnormality to account for patient's chest pain. 2. Coronary artery disease. D/ / Karlos Peck MD / Karlos Peck MD Interpreting Provider: Karlos Peck MD - EKG Data EKG attestation: Yes I reviewed and interpreted this EKG. EKG results narrative: EKG taken 03/31/2017 1128 hrs. shows sinus rhythm at a rate of 93 beats minutesigns of ischemia and is regular rate and rhythm. There are T-wave inversions in V1 and V2 V3 which can be seen on previous EKG taken 01/29/2017. T waves on previous EKG are hyperacute inversions Heart Score - Score History: Highly Suspicious EKG: Non Specific repolarisation Disturbance Age: 45-65 Risk Factors: 1-2 risk factors
[2017-03-31 11:56] LABS: Basophils # 0.1 K/mcL (0.0-0.2); Basophils % 0.3 %; Eosinophils # 0.1 K/mcL (0.0-0.6); Eosinophils % 0.7 %; Hematocrit 53.2 % (37.5-50.1); Hemoglobin 18.1 g/dL (12.9-16.9); Immature Granulocytes % 0.5 % (0-4); Lymphocytes # 1.2 K/mcL (0.6-4.6); Lymphocytes % 7.4 %; Mean Corpuscular Hemoglobin 30.7 pg (28.0-33.3); Mean Corpuscular Volume 90.2 fL (83.0-100.0); Mean Platelet Volume 10.7 fL (9.4-12.4); Monocytes # 0.9 K/mcL (0.0-1.3); Monocytes % 5.4 %; Neutrophils # 13.7 K/mcL (1.6-8.9); Platelet Count 216 K/mcL (140-400); Red Cell Distribution Width 12.6 % (11.5-14.5); Segmented Neutrophils % 85.7 %
[2017-03-31 12:03] LABS: INR 1.1; Prothrombin Time 11.3 Seconds (9.4-12.1)
--- NOTE | 2017-03-31 12:23 | Emergency Department Note ---
START Narrative - START START: I examined this patient and my medical decision-making was reviewed with the emergency medicine resident. I agree with the documented findings, disposition and treatment plan as described except to the extent set forth below. Patient seen with emergency medicine resident Dr. Lonny Barron, Please see a copy of his note for details of the H&P, ED evaluation, management and disposition. I have independently evaluated the patient and confirmed appropriate portions of the history and physical exam. Briefly: A 2-year-old male history of recent cardiac stent comes in with chest pain and pressure that he says feels similar to his prior need for stent since last night says it goes from his chest into his back. Patient is not diaphoretic afebrile with stable vital signs. EKG shows no acute ischemic changes. Chest x-ray negative for widened mediastinum which would be concerning for thoracic aortic dissection. Waiting for troponin. Since there are no beds currently available at [facility] especially telemetry beds patient will likely need to be transferred. Transfer disposition pending providing 30 minutes critical care service for this patient.
[2017-03-31 12:45] LABS: BUN/Creatinine Ratio 23 (6-26); Blood Urea Nitrogen 23 mg/dL (8-23); Calcium 9.4 mg/dL (8.6-10.3); Carbon Dioxide 15 mEq/L (23-29); Chloride 111 mEq/L (98-107); Glucose 140 mg/dL (70-105); Osmolality,Calculated 288 (280-300); Potassium 4.4 mEq/L (3.5-5.1); Sodium 136 mEq/L (136-145); eGFR For African Americans > 60 (> 60); eGFR For Non-African Americans > 60 (> 60)
[2017-03-31] MEDS ORDERED: 0.9 % Sodium Chloride 1,000 ML IVC ONE (13:00)
[2017-03-31] MEDS ORDERED: Nitroglycerin 1 INCH/GM PACKET ONE (13:35)
[2017-03-31] MEDS: Nitroglycerin 1 INCH/GM PACKET TP ONE ×2 (13:36→14:01)
--- NOTE | 2017-03-31 14:48 | Internal Med History&Physical ---
Date of Encounter: 03/31/17 Time of Encounter: 14:31 Assessment and Plan (1) Precordial chest pain Current visit: No Status: Acute Rule out acute coronary syndrome. Electrocardiogram shows no ST segment shifts. Initial troponin normal. Trend troponin. Continue dual antiplatelet therapy with aspirin Plavix. Patient has been having continuous pain I would give the patient one dose of Lovenox 1 mg/kg. Cardiology consultation. He has leukocytosis. Likely reactive and possible dehydration. No obvious source of infection Internal Medicine - H&P: HPI History of present illness: Mr. Do is a 62 year old male with a history of coronary artery disease status post PCI to mid LAD in December 2016 presents to the emergency room today with the main complain of chest pain. Patient mentions chest pain woke him up from sleep at 5 o'clock and pain has been constant since then. He denies any relation to exertion. No improvement plan was to lingual nitroglycerin. Is compliant with his jeweled antiplatelet therapy. Patient denies any cough expectoration fever or chills. Past Med Surg Social Fam HX - Past Medical History Medical history: GERD, hyperlipidemia, hypertension, migraine Psychiatric history: anxiety, bipolar, depression - Past Surgical History Surgical History: other - Social History Smoking Status: Former smoker Smokeless Tobacco Status: No Alcohol use: none Drug use: none - Family History Mother Living Status: Hx Family Cancer: Yes Father Living Status: Internal Medicine - H&P: Meds Aspirin 81 mg PO DAILY tab.chew 12/17/16 [Rx] Clopidogrel [Plavix] 75 mg PO DAILY #30 tablet 12/17/16 [Rx] Metoprolol [Lopressor] 25 mg PO BID #60 tablet 12/17/16 [Rx] Atorvastatin [Lipitor] 80 mg PO HS 01/29/17 [History] raNITIdine HCl [Ranitidine HCl] 150 mg PO HS 01/29/17 [History] Acetaminophen [Tylenol] 650 mg PO Q6HR PRN tablet 01/30/17 [Rx] Isosorbide MONOnitrate (24 HR) [Imdur] 30 mg PO DAILY #30 tab.er.24h 01/30/17 [ Rx] Nitroglycerin 0.4 mg SL Q5MIN PRN #30 tab.subl 01/30/17 [Rx] Amlodipine Besylate 2.5 mg PO DAILY 03/31/17 [History] 3 Allergy/AdvReac Type Severity Reaction Status Date / Time Penicillins [PCN] Allergy Hives Verified 01/30/17 10:52 All Systems PM: A 10-system review of systems was performed and is negative for pertinent findings except as documented above in the HPI. Review of systems: 10 point review of systems is negative except for HPI - Constitutional Vitals: Temp Pulse Resp BP Pulse Ox 97.9 F 94 22 118/85 95 03/31/17 11:23 03/31/17 14:04 03/31/17 14:04 03/31/17 14:04 03/31/17 14:04 Internal Med - H&P Results - Labs CBC & Chem 7: 03/31/17 11:44 03/31/17 11:44 Labs: Short CBC 03/31/17 Range/Units 11:44 WBC 16.0 H (4.3-11.1) K/mcL Hgb 18.1 H D (12.9-16.9) g/dL Hct 53.2 H (37.5-50.1) % Plt Count 216 (140-400) K/mcL Neutrophils # 13.7 H (1.6-8.9) K/mcL BMP 03/31/17 11:44 Sodium 136 Potassium 4.4 Chloride 111 H Carbon Dioxide 15 L BUN 23 Creatinine 0.98 Glucose 140 H Calcium 9.4 Cardiac Enzymes 03/31/17 Range/Units 11:44 Troponin I < 0.03 (< 0.04) ng/mL - Impressions ITS Impressions Chest X-Ray 03/31/17 11:36 IMPRESSION: 1. No radiographic abnormality to account for patient's chest pain. 2. Coronary artery disease. D/ / Karlos Peck MD / Karlos Peck MD Interpreting Provider: Karlos Peck MD
[2017-03-31] MEDS ORDERED: *HR* Enoxaparin 100 MG/ML SYRINGE SQ ONE (15:11)
[2017-03-31] MEDS: Nitroglycerin 0.4 MG TAB.SUBL SL PRN ×2 (19:30→19:44)
[2017-03-31] MEDS: Famotidine 20 MG TABLET PO SCH (19:44)
[2017-03-31] MEDS: Acetaminophen 325 MG TABLET PO PRN (19:54)
[2017-03-31] MEDS ORDERED: Ondansetron ODT 4 MG TAB.RAPDIS SL PRN (21:05)
[2017-04-01] MEDS: Nitroglycerin 0.4 MG TAB.SUBL SL PRN ×2 (03:59→04:06)
[2017-04-01] MEDS: Acetaminophen 325 MG TABLET PO PRN ×2 (04:07→20:49)
[2017-04-01 04:47] LABS: Basophils # 0.1 K/mcL (0.0-0.2); Basophils % 0.7 %; Eosinophils # 0.2 K/mcL (0.0-0.6); Eosinophils % 2.4 %; Hematocrit 46.7 % (37.5-50.1); Immature Granulocytes % 0.8 % (0-4); Lymphocytes # 2.5 K/mcL (0.6-4.6); Lymphocytes % 29.8 %; Mean Corpuscular HGB Conc 33.2 g/dL (31.6-35.5); Mean Corpuscular Hemoglobin 30.8 pg (28.0-33.3); Mean Corpuscular Volume 92.7 fL (83.0-100.0); Monocytes # 0.9 K/mcL (0.0-1.3); Monocytes % 10.8 %; Neutrophils # 4.7 K/mcL (1.6-8.9); Platelet Count 187 K/mcL (140-400); Red Blood Count 5.04 M/mcL (4.19-5.50); Red Cell Distribution Width 12.9 % (11.5-14.5); Segmented Neutrophils % 55.5 %
[2017-04-01 04:48] LABS: Hemoglobin 15.5 g/dL (12.9-16.9)
[2017-04-01 05:04] LABS: BUN/Creatinine Ratio 23 (6-26); Blood Urea Nitrogen 19 mg/dL (8-23); Calcium 8.4 mg/dL (8.6-10.3); Carbon Dioxide 21 mEq/L (23-29); Chloride 112 mEq/L (98-107); Glucose 92 mg/dL (70-105); Magnesium 1.9 mg/dL (1.6-2.6); Osmolality,Calculated 288 (280-300); Sodium 138 mEq/L (136-145); eGFR For African Americans > 60 (> 60); eGFR For Non-African Americans > 60 (> 60)
--- NOTE | 2017-04-01 08:17 | Cardiology Consult Note ---
<Wily Eller - Last Filed: 04/01/17 10:47> Date of Encounter: 04/01/17 Time of Encounter: 08:15 Assessment and Plan (1) CAD (coronary artery disease) Current Visit: No Status: Chronic Per Cardiology: Past history of acute STEMI troponin 0.18 December 2016. At that time underwent PTCA with drug-eluting stent to mid LAD 99% lesion, had remaining proximal circumflex 40%, mid major marginal 30%, mid RCA 40%, Cath fim reviewed with Dr. Myra King-- has small/severe diagonal lesion. Troponins negative 3. I had lengthy discussion with patient and he is agreeable to proceed with low-level nonexercise nuclear stress test for further evaluation of his symptoms. Assuming no significant findings anticipate will increase long-acting nitrate and/or possibly add Ranexa. All questions answered. Discussed and reviewed with Dr. Jules. On asa, plavix, statin, BB. Will hold Imdur for stress test. Will check limited echo. ECHO 12/2016: Impressions: LVEF 55-60%. Normal LV chamber size, wall thickness and overall function. Atypical septal motion consistent with bundle branch block. Mild segmental left ventricular systolic dysfunction. Mild left ventricular diastolic dysfunction. Normal right ventricular structure and function. No evidence of pulmonary hypertension. No significant valvular dysfunction. Left Ventricular Wall Motion: Rest Echo Findings The apical septal wall was hypokinetic. All other wall segments showed normal motion. Qualifiers: Coronary Disease-Associated Artery/Lesion type: [place] artery [place] vs. transplanted heart: [place] heart Associated angina: angina presence unspecified Qualified Code(s): I25.10 - Atherosclerotic heart disease of [place] coronary artery without angina pectoris (2) Nicotine abuse Current Visit: No Status: Chronic Per Cardiology: Reports quit smoking December 2016 at time of his STEMI. Congratulations provided. Discussion w patient/family: The assessment and plan as outlined above was discussed with the patient who expressed understanding and agreement. All questions were answered. Thank you for involving us in the care of your patient. Please call with any questions. History of Present Illness Consult date: 04/01/17 Requesting physician: Joe Camejo Consult reason: CP Chief complaint: CP History of present illness: Mr. Do is a 62 year old male with relevant past medical history of nicotine abuse, CAD, GERD. Patient with past history of STEMI with peak troponin 0.11 and December 2016 and hospitalization January 2017 for chest pain symptoms and started on long-acting nitrates. Was seen by Dr. Crowe in cardiology office yesterday and sent to ER for ongoing chest pain symptoms. Cardiology consult for chest pain evaluation. Patient reports he experiences midsternal chest heaviness daily at rest and with exertion with relief with nitroglycerin pills for the past one month. Reports increased frequency of symptoms throughout the day over the past few days. Currently chest pain-free. Left-sided chest wall pain reproducible day with deep inspiration and coughing. He does report occasional chills, however denies any fever, nausea, vomiting, diarrhea. Reports compliance with medications. He reports he continues to maintain smoke-free since December 2016. Past Med Surg Social Fam HX - Past Medical History Attestation: Yes The following information was validated with the patient. Source: patient, old records reviewed Medical history: GERD, hyperlipidemia, hypertension, migraine Psychiatric history: anxiety, bipolar, depression - Past Surgical History Surgical History: other - Social History Smoking Status: Former smoker Packs per day: 2 ppd Smokeless Tobacco Status: No Alcohol use: none Drug use: none - Family History Mother Living Status: Hx Family Cancer: Yes Father Living Status: Brother Living Status: Age at : 50 Cause of : OK Medications and Allergies Aspirin 81 mg PO DAILY tab.chew 12/17/16 [Rx] Clopidogrel [Plavix] 75 mg PO DAILY #30 tablet 12/17/16 [Rx] Metoprolol [Lopressor] 25 mg PO BID #60 tablet 12/17/16 [Rx] Atorvastatin [Lipitor] 80 mg PO HS 01/29/17 [History] raNITIdine HCl [Ranitidine HCl] 150 mg PO HS 01/29/17 [History] Acetaminophen [Tylenol] 650 mg PO Q6HR PRN tablet 01/30/17 [Rx] Isosorbide MONOnitrate (24 HR) [Imdur] 30 mg PO DAILY #30 tab.er.24h 01/30/17 [ Rx] Nitroglycerin 0.4 mg SL Q5MIN PRN #30 tab.subl 01/30/17 [Rx] Amlodipine Besylate 2.5 mg PO DAILY 03/31/17 [History] 3 Allergy/AdvReac Type Severity Reaction Status Date / Time Penicillins [PCN] Allergy Hives Verified 01/30/17 10:52 All Systems Review: A 10-system review of systems was performed and is negative for pertinent findings except as documented above in the HPI. - Constitutional Constitutional: chills - Cardiovascular Cardiovascular: as per HPI, chest pain at rest, chest pain with exertion - Respiratory Respiratory: cough Physical Examination Vital Signs, Last 4 Hours Temp Pulse Resp BP Pulse Ox 04/01/17 08:12 97.8 F 62 20 112/80 94 General: Conversant, No Apparent Distress HEENT: Atraumatic, Normocephaly, Mucus Membranes Moist Neck: No JVD, Normal carotid pulses Cardiac: Reg Rate and Rhythm, Normal S1 and S2, No Murmur Lungs: No Wheeze, Rales, Rhonchi, Other (As per sounds throughout) Neuro: Alert and responsive, No focal deficits noted Abdomen: Soft, Non-Tender Skin: No rashes noted on visualized skin, Other Musculoskeletal: Other (Left-sided chest wall pain reproducible with deep inspiration and coughing today) Extremities: No Clubbing, No Cyanosis, No Edema, Normal Pulses Results 04/01/17 04:00 04/01/17 04:00 Lab Results Laboratory Tests 03/31/17 03/31/17 03/31/17 11:44 11:44 20:10 INR 1.1 Creatinine Est GFR (Non-Af Amer) Magnesium Troponin I < 0.03 < 0.03 04/01/17 04/01/17 04:00 04:00 INR Creatinine 0.81 Est GFR (Non-Af Amer) > 60 Magnesium 1.9 Troponin I < 0.03 ITS Impressions Chest X-Ray 03/31/17 11:36 IMPRESSION: 1. No radiographic abnormality to account for patient's chest pain. 2. Coronary artery disease. D/ / Karlos Peck MD / Karlos Peck MD Interpreting Provider: Karlos Peck MD Active Medications Acetaminophen (Tylenol) 650 mg PO Q6HR PRN PRN Reason: Mild Pain (1-3) Stop: 09/30/17 14:29 Last Admin: 04/01/17 04:07 Dose: 650 mg Aspirin (Aspirin) 81 mg PO DAILY ON LICENSE OF [facility] Stop: 10/01/17 09:01 Atorvastatin Calcium (Lipitor) 80 mg PO HS ON LICENSE OF [facility] Stop: 09/30/17 21:01 Last Admin: 03/31/17 19:44 Dose: 80 mg Clopidogrel Bisulfate (Plavix) 75 mg PO DAILY ON LICENSE OF [facility] Stop: 10/01/17 09:01 Famotidine (Pepcid) 20 mg PO HS ON LICENSE OF [facility] Stop: 09/30/17 21:01 Last Admin: 03/31/17 19:44 Dose: 20 mg Isosorbide Mononitrate (Imdur) 30 mg PO DAILY ON LICENSE OF [facility] Stop: 10/01/17 09:01 Last Admin: 04/01/17 08:15 Dose: Not Given Metoprolol Tartrate (Lopressor) 25 mg PO BID ON LICENSE OF [facility] Stop: 09/30/17 21:01 Last Admin: 03/31/17 19:44 Dose: 25 mg Nitroglycerin (Nitroglycerin) 0.4 mg SL Q5MIN PRN PRN Reason: Chest Pain Stop: 09/30/17 14:29 Last Admin: 04/01/17 04:06 Dose: 0.4 mg Ondansetron HCl (Zofran Odt) 4 mg SL Q8HR PRN PRN Reason: Nausea And Vomiting Stop: 09/30/17 21:06 - Imaging and Cardiology Echo: report reviewed Cardiac cath: report reviewed - EKG Interpretation EKG results cardiology: personally reviewed (unchanged from baseline-- actually appears slightly improved) Consult Discharge Plan - Plan Referrals: Constance Mckeon, [facility] [employer] [Primary Care Provider] - <Francisco Jules - Last Filed: 04/01/17 21:10> Date of Encounter: 04/01/17 - Attending Attestation I have personally performed a face to face evaluation on this patient. I have reviewed and agree with the care plan. History and Exam by me shows: CC: chest pain Pt reports midsternal chest pain, pressure, feels like a weight on his chest, occurs at rest and with exertion, can be provoked by exercise, lasts ten to fifteen minutes, associated with mild nausea, and shortness of breath. Pt reports chest pain is relieved by sl ntg within two minutes, He reports chest pain is also provoked by coughing and deep breath. Pt is currently pain free. PE: alert, orientated x 3, in no distress HEENT: NINO, EOMI, no carotid bruits Heart: RRR at 72 bpm, no murmurs, chest wall is tender to palpation in left mid clavicular line ribs 5,6, reproduces chest pain Lungs: Clear all king Abdomen: soft, flat, bowel sounds x 4, no pulsitile masses, no tenderness Ext: no edema, pulse +2/45 throughout [place]: CN 2-12 intact, no focal deficit. IMP: 1. Chest pain, unclear etiology, EKG and enzemes negative, will order treadmill cardiolyte in AM to rule out ischemic substrate, if negative will add Ranexa 500 mg bid 2. CAD - severe single vessel disease, post PCI with MARYAN LAD, mild disease in Cx and RCA 3. Bipolar disorder, controlled on current medications 4. GERD - controlled 5. Tobacco abuse - reports successful smoking cessation 12/2016 Assessment and Plan Discussion w patient/family: The assessment and plan as outlined above was discussed with the patient and/or family members who expressed understanding and agreement. All questions were answered. Thank you for involving us in the care of your patient. Please call with any questions. History of Present Illness History of present illness: Mr. Do is a 62 year old male All Systems Review: A 10-system review of systems was performed and is negative for pertinent findings except as documented above in the HPI. Physical Examination Vital Signs, Last 4 Hours Temp Pulse Resp BP Pulse Ox 04/01/17 15:47 98 F 66 22 116/74 93 Results 04/01/17 04:00 04/01/17 04:00 Lab Results 03/31/17 04/01/17 04/01/17 20:10 04:00 04:00 WBC 8.5 Hgb 15.5 D Hct 46.7 Plt Count 187 Sodium Potassium Chloride Carbon Dioxide BUN Creatinine Glucose Calcium Magnesium Troponin I < 0.03 < 0.03 04/01/17 04:00 WBC Hgb Hct Plt Count Sodium 138 Potassium 4.0 Chloride 112 H Carbon Dioxide 21 L BUN 19 Creatinine 0.81 Glucose 92 Calcium 8.4 L Magnesium 1.9 Troponin I
[2017-04-01] MEDS ORDERED: Isosorbide MONOnitrate (24 HR) 30 MG TAB.ER.24H PO SCH (09:00)
--- NOTE | 2017-04-01 09:14 | Internal Med Progress Note ---
<Ab Chambers - Last Filed: 04/01/17 15:13> Date of Encounter: 04/01/17 Time of Encounter: 09:13 - Assessment and plan (1) CAD (coronary artery disease) Current Visit: No Status: Chronic Assessment and plan: Patient presented with chest pain not relieved after taking sublingual nitroglycerin every 5 minutes 3 doses. Admits general medical floor on telemetry. Cardiology following - Troponin negative 3, reviewing patient's past laboratory results demonstrates that even with his last STEMI, he had nonsignificant troponin levels. Past history of acute STEMI troponin 0.18 December 2016. At that time underwent PTCA with drug-eluting stent to mid LAD 99% lesion, had remaining proximal circumflex 40%, mid major marginal 30%, mid RCA 40% ECHO 12/2016: Impressions: LVEF 55-60%. Normal LV chamber size, wall thickness and overall function. Atypical septal motion consistent with bundle branch block. Mild segmental left ventricular systolic dysfunction. Mild left ventricular diastolic dysfunction. Normal right ventricular structure and function. No evidence of pulmonary hypertension. No significant valvular dysfunction. Left Ventricular Wall Motion: Rest Echo Findings The apical septal wall was hypokinetic. All other wall segments showed normal motion. Plan: - Cardiology following. - Stress test this afternoon - Continue nothing by mouth diet - Continue cardiac nurse practitioner. - Continue aspirin, Lipitor 80 mg by mouth at bedtime, Imdur, metoprolol tartrate 25 mg by mouth twice a day and sublingual nitroglycerin, oxygen therapy. Qualifiers: Coronary Disease-Associated Artery/Lesion type: [place] artery [place] vs. transplanted heart: [place] heart Associated angina: angina presence unspecified Qualified Code(s): I25.10 - Atherosclerotic heart disease of [place] coronary artery without angina pectoris (2) History of ST elevation myocardial infarction (STEMI) Current Visit: Yes Status: Acute Assessment and plan: December 2016, findings of 99% occlusion to the LAD requiring 1 MARYAN. - Patient states that he has been compliant with his dual antiplatelet therapy without missing any doses. - Patient has not smoked any cigarettes since his episode in December. Congratulations were provided! (3) DVT prophylaxis Current Visit: Yes Status: Acute Assessment and plan: SQ Heparin Q8hr. - Subjective Interval history: Mr. Do has been seen and evaluated patient bedside this morning. He is alert awake interactive no acute distress. He states that he did have an episode of chest pressure located left upper chest radiating to his shoulder on the left side which was improved with sublingual nitroglycerin. He states that he had similar symptoms yesterday that was not relieved after having sublingual nitroglycerin every 5 minutes 3 doses thus prompting him to come to the emergency department. With his recent cardiac stents he became more concerned about his current symptoms. He denies any oral intake and preparation for cardiac testing today, denies any other concerns or discomforts this morning. - Constitutional Vitals: Temp Pulse Resp BP Pulse Ox 97.8 F 62 20 112/80 94 04/01/17 08:12 04/01/17 08:12 04/01/17 08:12 04/01/17 08:12 04/01/17 08:12 Exam: General: Patient alert, awake, oriented 3, interactive, in no acute distress HEENT: Normocephalic, atraumatic, pupils equal reactive to light, oral mucosa moist, uvula midline, neck supple trachea midline no palpable lymphadenopathy, no thyromegaly. Chest: Symmetric bilateral correlating with respiratory effort, effort nonlabored. Cardiac: Regular rate and rhythm, positive S1 and S2. no bruits appreciated bilateral carotids, Radial pulses 2+ bilateral, posterior tibial and dorsal pedal pulses 2+ bilateral. Respiratory: Clear to auscultation all lung king Abdomen: Soft, nontender, positive bowel sounds, no palpable masses appreciated on examination Extremities: Symmetric bilateral, bilateral lower extremities without erythema or edema patient moving all 4 extremities spontaneously. Neurologic: No focal deficits appreciated on examination. Face symmetric, muscle strength symmetric bilateral upper and lower extremities. Internal Medicine: Result - Labs CBC & Chem 7: 04/01/17 04:00 04/01/17 04:00 Labs: Short CBC 04/01/17 Range/Units 04:00 WBC 8.5 (4.3-11.1) K/mcL Hgb 15.5 D (12.9-16.9) g/dL Hct 46.7 (37.5-50.1) % Plt Count 187 (140-400) K/mcL Neutrophils # 4.7 (1.6-8.9) K/mcL BMP 04/01/17 04:00 Sodium 138 Potassium 4.0 Chloride 112 H Carbon Dioxide 21 L BUN 19 Creatinine 0.81 Glucose 92 Calcium 8.4 L Cardiac Enzymes 03/31/17 04/01/17 Range/Units 20:10 04:00 Troponin I < 0.03 < 0.03 (< 0.04) ng/mL - ABG Interpretation ABG results: PT/INR, D-dimer PT 11.3 Seconds (9.4-12.1) 03/31/17 11:44 Consult Discharge Plan - Plan Referrals: Constance Mckeon, STUDENT SERVICES COUNSELOR [Primary Care Provider] - <Steve Livingston - Last Filed: 04/01/17 18:40> Date of Encounter: 04/01/17 - Assessment and plan (1) Unstable angina Current Visit: Yes Status: Acute (2) CAD (coronary artery disease) Current Visit: No Status: Chronic Qualifiers: Coronary Disease-Associated Artery/Lesion type: [place] artery [place] vs. transplanted heart: [place] heart Associated angina: with unstable angina Qualified Code(s): I25.110 - Atherosclerotic heart disease of [place] coronary artery with unstable angina pectoris (3) History of ST elevation myocardial infarction (STEMI) Current Visit: Yes Status: Acute - Constitutional Vitals: Temp Pulse Resp BP Pulse Ox 98 F 66 22 116/74 93 04/01/17 15:47 04/01/17 15:47 04/01/17 15:47 04/01/17 15:47 04/01/17 15:47 Internal Medicine: Result - Labs CBC & Chem 7: 04/01/17 04:00 04/01/17 04:00 Labs: Short CBC 04/01/17 Range/Units 04:00 WBC 8.5 (4.3-11.1) K/mcL Hgb 15.5 D (12.9-16.9) g/dL Hct 46.7 (37.5-50.1) % Plt Count 187 (140-400) K/mcL Neutrophils # 4.7 (1.6-8.9) K/mcL BMP 04/01/17 04:00 Sodium 138 Potassium 4.0 Chloride 112 H Carbon Dioxide 21 L BUN 19 Creatinine 0.81 Glucose 92 Calcium 8.4 L Cardiac Enzymes 03/31/17 04/01/17 Range/Units 20:10 04:00 Troponin I < 0.03 < 0.03 (< 0.04) ng/mL - ABG Interpretation ABG results: PT/INR, D-dimer PT 11.3 Seconds (9.4-12.1) 03/31/17 11:44 - Impressions Impressions Echocardiogram Limited Views 04/01/17 10:59 Impressions: LVEF 60%. Normal LV chamber size, wall thickness and function. Normal right ventricular structure and function. Left Ventricular Wall Motion: Rest Echo Findings All wall segments showed normal motion. Findings: Study Quality * Technically adequate exam. ECG Findings * Normal sinus rhythm. Left Ventricle * Normal LV chamber size, wall thickness and function. * LVEF 60%. Right Ventricle * Normal right ventricular structure and function. Aorta * Normally sized aortic root. - Attending Attestation I examined this patient and my medical decision-making was reviewed with the Resident Physician on 04/01/17. I agree with the documented findings, disposition and treatment plan as described except to the extent set forth below. Mr Do is currently in observation due to unstable angina. He had stress test today and probable cath tomorrow. Mr Do is having dyspnea while eating. No fever. No cough. No CP at this time. Exam Alert. Mild distress Heart reg Lungs diminished Abd soft I/P 1. [place] 2. CAD Further diagnoses and plan as above.
[2017-04-01] MEDS: Aspirin 81 MG TAB.CHEW PO SCH (09:32)
[2017-04-01] MEDS ORDERED: Regadenoson 0.4 MG/5 ML SYRINGE IVP ONE (10:10)
--- NOTE | 2017-04-01 15:00 | Event Note ---
Date of Encounter: 04/01/17 Time of Encounter: 15:00 - Cardiology Event Note ST results reviewed with Dr. Myra King, will increase Imdur and monitor overnight. Will eval in am for possible LHC. Patient agreeable.
[2017-04-01] MEDS: Isosorbide MONOnitrate (24 HR) 60 MG TAB.ER.24H PO SCH (16:43)
[2017-04-01] MEDS: Famotidine 20 MG TABLET PO SCH (20:48)
[2017-04-01] MEDS: *HR* Heparin 5,000 UNIT/ML VIAL SQ SCH (20:49)
[2017-04-02] MEDS: Acetaminophen 325 MG TABLET PO PRN ×2 (05:02→11:28)
[2017-04-02] MEDS: *HR* Heparin 5,000 UNIT/ML VIAL SQ SCH ×3 (05:02→20:52)
[2017-04-02 05:06] LABS: Basophils % 0.5 %; Eosinophils # 0.3 K/mcL (0.0-0.6); Eosinophils % 4.1 %; Hematocrit 43.2 % (37.5-50.1); Hemoglobin 14.5 g/dL (12.9-16.9); Immature Granulocytes % 0.6 % (0-4); Lymphocytes # 2.4 K/mcL (0.6-4.6); Lymphocytes % 30.5 %; Mean Corpuscular HGB Conc 33.6 g/dL (31.6-35.5); Mean Corpuscular Hemoglobin 30.9 pg (28.0-33.3); Mean Corpuscular Volume 91.9 fL (83.0-100.0); Mean Platelet Volume 10.8 fL (9.4-12.4); Monocytes % 13.1 %; Platelet Count 172 K/mcL (140-400); Red Cell Distribution Width 12.6 % (11.5-14.5); Segmented Neutrophils % 51.2 %
[2017-04-02 05:37] LABS: Alanine Aminotransferase 18 Units/L (7-52); Albumin 3.4 g/dL (3.5-5.7); Albumin/Globulin Ratio 1.4 (1.1-2.2); Alkaline Phosphatase 43 Units/L (34-104); Aspartate Amino Transferase 11 Units/L (13-39); BUN/Creatinine Ratio 23 (6-26); Bilirubin,Total 0.4 mg/dL (0.3-1.0); Blood Urea Nitrogen 20 mg/dL (8-23); Calcium 8.4 mg/dL (8.6-10.3); Carbon Dioxide 22 mEq/L (23-29); Chloride 112 mEq/L (98-107); Globulin 2.5 g/dL (2.4-3.5); Glucose 103 mg/dL (70-105); Osmolality,Calculated 289 (280-300); Potassium 4.1 mEq/L (3.5-5.1); Sodium 138 mEq/L (136-145); Total Protein 5.9 g/dL (6.4-8.9); eGFR For African Americans > 60 (> 60); eGFR For Non-African Americans > 60 (> 60)
[2017-04-02] MEDS: Aspirin 81 MG TAB.CHEW PO SCH (07:46)
[2017-04-02] MEDS: Isosorbide MONOnitrate (24 HR) 60 MG TAB.ER.24H PO SCH (07:46)
--- NOTE | 2017-04-02 07:57 | Electrocardiograph Report ---
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
--- NOTE | 2017-04-02 08:20 | Event Note ---
Date of Encounter: 04/02/17 Time of Encounter: 08:00 - Cardiology Event Note Seen and examined. Abnormal stress on 04/01/17 (see below). Kidney function, vitals stable this AM. Recommend LHC with possible PCI; alternatives, benefits, and risk discussed he is agreeable to proceed. NPO except medications. Further recommendations to follow LHC. Patient discussed and reviewed with Dr. Jules and Dr. Crowe (intervention).
--- NOTE | 2017-04-02 10:17 | Pre-Sedation Evaluation ---
Pre-sedation evaluation - Pre-sedation checklist Date of procedure: 04/02/17 Procedure: Heart Cath Recent Vitals: Last Vital Signs Temp 97.8 F 04/02/17 06:52 Pulse 60 04/02/17 06:52 Resp 16 04/02/17 06:52 BP 97/69 04/02/17 06:52 Pulse Ox 94 04/02/17 07:57 H&P (including ROS) documented in medical record: Yes Previous reaction to sedatives/anesthetics: No Dietary Status: NPO after Midnight Dentition: No loose teeth or bridges ASA Classification *see protocol: CLASS II-Mild systemic disease Plan of Care: Pt appropriate candidate for procedure/moderate/conscious sedation , Risks/benefits of procedure/sedation discussed w/ patient/family
--- NOTE | 2017-04-02 11:31 | Internal Med Progress Note ---
<Ab Chambers - Last Filed: 04/02/17 11:28> Date of Encounter: 04/02/17 Time of Encounter: 11:28 - Assessment and plan (1) CAD (coronary artery disease) Current Visit: No Status: Chronic Assessment and plan: Patient presented with chest pain not relieved after taking sublingual nitroglycerin every 5 minutes 3 doses. Admits general medical floor on telemetry. Cardiology following - Troponin negative 3, reviewing patient's past laboratory results demonstrates that even with his last STEMI, he had nonsignificant troponin levels. Past history of acute STEMI troponin 0.18 December 2016. 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 Normal LV chamber size, wall thickness and overall function. Atypical septal motion consistent with bundle branch block. Mild segmental left ventricular systolic dysfunction. Mild left ventricular diastolic dysfunction. Normal right ventricular structure and function. No evidence of pulmonary hypertension. No significant valvular dysfunction. Left Ventricular Wall Motion: Rest Echo Findings The apical septal wall was hypokinetic. All other wall segments showed normal motion. Plan: - Cardiology following plan for [facility] TODAY. - Continue nothing by mouth diet - Continue threat monitoring analyst. - Continue ASA and Plavix daily. - Continue aspirin, Lipitor 80 mg by mouth at bedtime, Imdur, metoprolol tartrate 25 mg by mouth twice a day and sublingual nitroglycerin, oxygen therapy. Qualifiers: Coronary Disease-Associated Artery/Lesion type: [place] artery [place] vs. transplanted heart: [place] heart Associated angina: with unstable angina Qualified Code(s): I25.110 - Atherosclerotic heart disease of [place] coronary artery with unstable angina pectoris (2) History of ST elevation myocardial infarction (STEMI) Current Visit: Yes Status: Acute Assessment and plan: December 2016, findings of 99% occlusion to the LAD requiring 1 MARYAN. - Patient states that he has been compliant with his dual antiplatelet therapy without missing any doses. - Patient has not smoked any cigarettes since his episode in December. Congratulations were provided! (3) DVT prophylaxis Current Visit: Yes Status: Acute Assessment and plan: SQ Heparin Q8hr. - Subjective Interval history: Mr. Do has been seen and evaluated patient bedside this morning. He is alert awake interactive no acute distress. Denies any pain, chest pain, chest tightness or discomfort. He feels fine today and denies any acute events over night. He has no further questions or concerns at this time. He is scheduled for a [facility] today. - Constitutional Vitals: Temp Pulse Resp BP Pulse Ox 97.8 F 60 16 97/69 94 04/02/17 06:52 04/02/17 06:52 04/02/17 06:52 04/02/17 06:52 04/02/17 07:57 Exam: General: Patient alert, awake, oriented 3, interactive, in no acute distress HEENT: Normocephalic, atraumatic, pupils equal reactive to light, oral mucosa moist, uvula midline, neck supple trachea midline no palpable lymphadenopathy, no thyromegaly. Chest: Symmetric bilateral correlating with respiratory effort, effort nonlabored. Cardiac: Regular rate and rhythm, positive S1 and S2. no bruits appreciated bilateral carotids, Radial pulses 2+ bilateral, posterior tibial and dorsal pedal pulses 2+ bilateral. Respiratory: Clear to auscultation all lung king Abdomen: Soft, nontender, positive bowel sounds, no palpable masses appreciated on examination Extremities: Symmetric bilateral, bilateral lower extremities without erythema or edema patient moving all 4 extremities spontaneously. Neurologic: No focal deficits appreciated on examination. Face symmetric, muscle strength symmetric bilateral upper and lower extremities. Internal Medicine: Result - Labs CBC & Chem 7: 04/02/17 04:24 04/02/17 04:24 Labs: Short CBC 04/02/17 Range/Units 04:24 WBC 7.9 (4.3-11.1) K/mcL Hgb 14.5 (12.9-16.9) g/dL Hct 43.2 (37.5-50.1) % Plt Count 172 (140-400) K/mcL Neutrophils # 4.0 (1.6-8.9) K/mcL BMP 04/02/17 04:24 Sodium 138 Potassium 4.1 Chloride 112 H Carbon Dioxide 22 L BUN 20 Creatinine 0.86 Glucose 103 Calcium 8.4 L Liver Function 04/02/17 Range/Units 04:24 Total Bilirubin 0.4 (0.3-1.0) mg/dL AST 11 L (13-39) Units/L ALT 18 (7-52) Units/L Alkaline Phosphatase 43 (34-104) Units/L Albumin 3.4 L (3.5-5.7) g/dL - ABG Interpretation ABG results: PT/INR, D-dimer PT 11.3 Seconds (9.4-12.1) 03/31/17 11:44 - Impressions Impressions Echocardiogram Limited Views 04/01/17 10:59 Impressions: LVEF 60%. Normal LV chamber size, wall thickness and function. Normal right ventricular structure and function. Left Ventricular Wall Motion: Rest Echo Findings All wall segments showed normal motion. Findings: Study Quality * Technically adequate exam. ECG Findings * Normal sinus rhythm. Left Ventricle * Normal LV chamber size, wall thickness and function. * LVEF 60%. Right Ventricle * Normal right ventricular structure and function. Aorta * Normally sized aortic root. Consult Discharge Plan - Plan Referrals: Ted Crowe MD [Partnered Physician] - (office will call patient at home with follow up appointment) Constance Mckeon CNP [Primary Care Provider] - 04/08/17 3:00 pm <Steve Livingston - Last Filed: 04/02/17 18:10> Date of Encounter: 04/02/17 - Assessment and plan (1) Unstable angina Current Visit: Yes Status: Acute (2) CAD (coronary artery disease) Current Visit: No Status: Chronic Qualifiers: Coronary Disease-Associated Artery/Lesion type: [place] artery [place] vs. transplanted heart: [place] heart Associated angina: with unstable angina Qualified Code(s): I25.110 - Atherosclerotic heart disease of [place] coronary artery with unstable angina pectoris (3) History of ST elevation myocardial infarction (STEMI) Current Visit: Yes Status: Acute - Constitutional Vitals: Temp Pulse Resp BP Pulse Ox 97.6 F 63 15 112/74 95 04/02/17 16:04 04/02/17 16:04 04/02/17 16:04 04/02/17 16:04 04/02/17 16:04 Internal Medicine: Result - Labs CBC & Chem 7: 04/02/17 04:24 04/02/17 04:24 Labs: Short CBC 04/02/17 Range/Units 04:24 WBC 7.9 (4.3-11.1) K/mcL Hgb 14.5 (12.9-16.9) g/dL Hct 43.2 (37.5-50.1) % Plt Count 172 (140-400) K/mcL Neutrophils # 4.0 (1.6-8.9) K/mcL BMP 04/02/17 04:24 Sodium 138 Potassium 4.1 Chloride 112 H Carbon Dioxide 22 L BUN 20 Creatinine 0.86 Glucose 103 Calcium 8.4 L Liver Function 04/02/17 Range/Units 04:24 Total Bilirubin 0.4 (0.3-1.0) mg/dL AST 11 L (13-39) Units/L ALT 18 (7-52) Units/L Alkaline Phosphatase 43 (34-104) Units/L Albumin 3.4 L (3.5-5.7) g/dL - ABG Interpretation ABG results: PT/INR, D-dimer PT 11.3 Seconds (9.4-12.1) 03/31/17 11:44 - Attending Attestation I examined this patient and my medical decision-making was reviewed with the Resident Physician on 04/02/17. I agree with the documented findings, disposition and treatment plan as described except to the extent set forth below. Mr Do is currently admitted for unstable angina. He is to have cardiac cath today. He remains moderate to high risk due to potential for worsening clinical status. Mr Do feels OK at this time except for headache. Seemed to start last night (nitro). No CP at this time. No fever. Exam alert. Mod distress due to pain Mucus membranes dry Heart reg and distant Lungs clear anteriorly Abd soft I/P 1. [place] 2. CAD Cardiac cath today Further diagnoses and plan as above.
[2017-04-02] MEDS ORDERED: Verapamil 5 MG/2 ML VIAL ONE (12:11)
[2017-04-02] MEDS ORDERED: *HR* Heparin 10,000 UNIT/10 ML VIAL ONE (12:11)
[2017-04-02] MEDS ORDERED: Heparin 1,000 UNITS/500 mL 500 ML ONE (12:12)
[2017-04-02] MEDS ORDERED: Nitroglycerin 1,000 MCG/10 ML VIAL IV ONE (12:12)
[2017-04-02] MEDS ORDERED: 0.9 % Sodium Chloride 2,000 ML ONE (12:12)
[2017-04-02] MEDS ORDERED: *HR* Midazolam HCl 2 MG/2 ML VIAL ONE (14:08)
[2017-04-02] MEDS ORDERED: *HR* FentaNYL (PF) 100 MCG/2 ML VIAL ONE (14:09)
[2017-04-02] MEDS ORDERED: 0.9 % Sodium Chloride 1,000 ML ONE (14:09)
[2017-04-02] MEDS ORDERED: Ondansetron 4 MG/2 ML VIAL IVP PRN (14:53)
--- NOTE | 2017-04-02 15:12 | Invasive Diagnostic Lab Proc ---
Name: Christopher Do Date of Study: 04/02/2017 Date: 1955 Ht: 65.0in Medical Record#: [id number] Age: 62 Wt: 194.01lb Gender: Male BSA: 1.95 Order #: [id number] BMI: 32.32 Physicians Procedure Physician: Ted Crowe MD, FACC Referring MD: Referring MD: Staff Name Position Time In Hakeem Genoveva JOHNSON Monitor 02:19 PM Katerine Evans RT Scrub 02:19 PM Preeti Wayne RN Bleach Maker 02:19 PM Indications Indication Abnormal Test - Stress Procedures Performed Procedure L HRT ARTERY/VENTRICLE ANGIO PRQ CARDIAC ANGIOPLAST 1 ART Pre-Procedure Checklist Informed consent is complete signed and on chart. H&P is on chart. ID band is on and ID verified with patient. Patient NPO for procedure The procedure was described for the patient and questions were answered. Blood Pressure: 97/69 ECG is on chart. Rhythm: Sinus Bradycardia Plan of Care Patient will tolerate the procedure without complications. Adequate level of comfort will be maintained. Hemodynamics will remain stable Patient will recover from procedure without complications. Respiratory function will be maintained. Cardiac rhythm will remain stable. Patient temperature will be maintained. Patient and/or family have verbalized understanding of the procedure. Patient Education Chief Complaint/Reason for Test: Cardiac Cath Developmental Category: Adult (18-64 years) Developmentally Appropriate for Age: Yes Learning Barriers: None Education Needs: Procedure Education Method: Verbal Information Taught: Cardiac Cath Educational Evaluation: Able to repeat information Intravenous Access Time IV Size Location DC'd Fluid/Drip Rate Units RN 02:21 PM 18g 1 03/13" Patent On Arrival Lt Antecubital 0.9NaCl 25 ml/hr Preeti Wayne RN Allergies PCN (penicillin) Penicillins Vital Signs Time BP (mmHg) HR (bpm) O2 Sat. RR (bpm) LOC 02:20 PM 115 / 69 63 94 % 12 5 = Fully awake and oriented or at pre-proc level 02:20 PM / % 4 = Oriented but drowsy 02:35 PM / % 4 = Oriented but drowsy 02:21 PM 115 / 69 62 92 % 19 02:26 PM 110 / 67 61 93 % 02:31 PM 113 / 71 62 93 % 02:36 PM 116 / 63 69 91 % 02:41 PM 115 / 69 63 92 % 02:46 PM 112 / 69 60 93 % 02:51 PM 107 / 72 65 92 % 02:56 PM 115 / 72 61 94 % Procedural Medications Time Medication Dose Units Method Given By 02:19 PM Oxygen 2 L/min nasal cannula Preeti Wayne RN 02:19 PM Versed 2 mg Intravenous Preeti Wayne RN 02:20 PM Fentanyl 50 mcg Intravenous Preeti Wayne RN 02:27 PM Lidocaine 2% 20 ml Subcutaneous Ted Crowe MD, FACC 02:42 PM Heparin 4000 units Intravenous Preeti Wayne RN 02:46 PM Nitroglycerin 200 mcg Intracoronary Ted Crowe MD ASA Classification: CLASS II- Mild systemic disease (i.e. well-controlled diabetes, hypertension, asthma, cigarette smoking) Cierra Score Preprocedure Postprocedure Activity 2- Moves 4 extremities sustained head lift Activity 2- Moves 4 extremities sustained head lift Circulation 2- SBP +/= 20 points of pre-anesthetic level Circulation 2- SBP +/= 20 points of pre-anesthetic level Consciousness 2- Awake and alert oriented x 3 Consciousness 2- Awake and alert oriented x 3 O2 Saturation 2- Able to maintain O2 satruation of 92% on room air O2 Saturation 2- Able to maintain O2 satruation of 92% on room air Respiratory 2- Able to deep breathe and cough well Respiratory 2- Able to deep breathe and cough well Total Score 10 Total Score 10 Contrast Agent: Isovue Diagnostic Contrast: 101 ml Total Contrast: 101 ml Fluoro Dose: 399 mGy Activated Clotting Time Time Seconds to Clot 02:54 PM 242 Procedure Log Time Note Enter By 02:18 PM Pt arrived to labor relations analyst 2 [facility] 14[facility] 02[facility]18 PM Physician arrived 14:18 [facility] 02:18 PM Felix and benjamín completed [facility] 02:18 PM Sign in performed according to hospital policy. [facility] 02:18 PM Procedure start 14:18 [facility] 02:18 PM CathStat 02:18 PM Recorded ECG: HR=60 Condition=Condition 1 02:18 PM Pressure channel 1 zeroed. 02:19 PM Genoveva Palacio RN Position: Monitor Time in: 14:19 lpason 02:19 PM Katerine Evans RT Position: Scrub [facility]: 14:19 [facility] Preeti Wayne RN Position: Bleach Maker Time in: 14:19 [facility] PM Patient charges- Angio tray pack, Navilyst 3mm J, Pulse Oximetry and ACIST tubing and transducer [facility] PM Case Delayed No [facility] PM Hair removed from procedure site in procedure lab using clippers. Bilateral groin prepped with Chloraprep by Genoveva Palacio RN, safety strap applied then patient was draped. Skin intact. [facility] PM ASA Class CLASS II- Mild systemic disease (i.e. well-controlled diabetes, hypertension, asthma, cigarette smoking) [facility] PM Time: 14:19 Oxygen on at 2 L/min per nasal cannula by Preeti Wayne RN [facility] PM Time: 14:19 Versed 2 mg Intravenous [facility] Time: 14:20 Fentanyl 50 mcg Intravenous Given [facility] Time: 14:20 Patient comfortable and pain free: Yes [facility] PM Time: 14:20LOC: 5 = Fully awake and oriented or at pre-proc level [facility] PM Clinical Presentation: Unstable angina [facility] : PM Vitals capture started with the following parameters, Patient=Adult, Interval=5 min, Initial Apscqwgm=677 mmHg, Deflation Rate=5 mmHg, Cuff placed on Right Arm 02:21 PM HR=62 bpm, VOFK=430/69 mmhg, SpO2=92.0 %, Resp=19 B/min, Comment=NSR 02: PM HR=61 bpm, OHUI=064/67 mmhg, SpO2=93.0 %, Comment=NSR : PM Time out performed according to hospital policy [facility] PM Time: 14: 20 ml Lidocaine 2% to right groin Subcutaneous Given by Ted Crowe MD, [facility] PM Access obtained by percutaneous puncture. 5Fr 10cm Terumo Hennessey sheath placed in right Femoral artery. [id number] [facility] PM 5Fr FL 4 catheter [facility] PM 0.035 145cm Navilyst 3mmJ wire [id number] [facility] 02:29 PM LCA angiography performed in multiple views. l[facility]ley 02:30 PM Recorded Pressure: Ao, HR=64, Condition=Condition 1 (Aorta) Ao 90/71/82 02:31 PM HR=62 bpm, EXNX=195/71 mmhg, SpO2=93.0 %, Comment=NSR 02:33 PM Catheter removed [facility]ley 02:33 PM 5Fr FR 4 catheter inserted over the wire [facility] lparsley 02:34 PM RCA angiography performed in multiple views. l[facility]ley 02:35 PM Recorded Pressure: Ao, HR=68, Condition=Condition 1 (Aorta) Ao 91/74/83 02:35 PM Time: 14:20LOC: 4 = Oriented but drowsy [facility] 02:35 PM Time: 14:20 Patient comfortable and pain free: Yes [facility] 02:36 PM Coronary Dominance: right l[facility]ley 02:36 PM HR=69 bpm, RNYQ=845/63 mmhg, SpO2=91.0 %, Comment=NSR 02:36 PM Lesion found in Mid LAD. Pre Stenosis: 40 Pre CARLOS Flow: 3: Complete and Brisk Flow/Perfusion lparsley 02:36 PM Lesion found in 1st Diagonal. Pre Stenosis: 95 Pre CARLOS Flow: 3: Complete and Brisk Flow/Perfusion lparsley 02:36 PM Lesion found in Proximal RCA. Pre Stenosis: 30 Pre CARLOS Flow: 3: Complete and Brisk Flow/Perfusion lparsley 02:37 PM Lesion found in Mid RCA. Pre Stenosis: 50 Pre CARLOS Flow: 3: Complete and Brisk Flow/Perfusion lparsley 02:37 PM Catheter removed l[facility]ley 02:38 PM 5Fr Pigtail catheter inserted over the wire [facility] lparsley 02:38 PM Catheter selectively placed in left ventricle lparsley 02:38 PM Recorded Pressure: LV, HR=69, Condition=Condition 1 (Left Ventricle) LV 111/-2/11 02:38 PM Bolus angiogram of left Ventricle complete: 10 ml/sec for a total of 20 mls lparsley 02:39 PM Recorded Pressure: LV, Ao, HR=66, Condition=Condition 1 (Left Ventricle) LV 109/1/13, (Aorta) Ao 103/69/84 02:39 PM Catheter removed lparsley 02:41 PM HR=63 bpm, FLRD=658/69 mmhg, SpO2=92.0 %, Comment=NSR 02:41 PM Mid/Distal Left Anterior Descending Coronary Artery and diagonal branches with 95% stenosis. lparsley 02:42 PM Right Coronary, Right Posterior Descending Arteries with Right Posterolateral and Acute Marginal branches with 50 % stenosis. lparsley 02:42 PM PCI Status Urgent lparsley 02:42 PM Time: 14:42 Heparin 4000 units Intravenous Given by Preeti Wayne RN l[facility]ley 02:42 PM PCI lesion in 1st Diagonal. lparsley 02:42 PM 5Fr RBL 3.5 Convey guide catheter was used to cannulate the PCI vessel successfully. reused? No lparsley 02:43 PM Inflation device was opened. lparsley 02:43 PM .014 [place]onson 190cm guide wire across target lesion- successful. reused? No lparsley 02:44 PM Recorded Pressure: Ao, HR=59, Condition=Condition 1 (Aorta) Ao 91/69/80 02:45 PM 2.0 mm x 8 mm Emerge Monorail balloon across target lesion- successful. reused? No lparsley 02:45 PM Balloon inflated @ 8 hung for 34 seconds lparsley 02:45 PM Chest pressure reproduced while balloon inflated lparsley 02:46 PM HR=60 bpm, JGUC=384/69 mmhg, SpO2=93.0 %, Comment=NSR 02:46 PM Recorded Pressure: Ao, HR=63, Condition=Condition 1 (Aorta) Ao 89/76/83 02:46 PM Balloon inflated @ 10 hung for 26 seconds lparsley 02:47 PM Time: 14:46 Nitroglycerin 200 mcg Intracoronary Given by Ted Crowe MD l[facility]ley 02:48 PM Balloon inflated @ 12 hung for 28 seconds lparsley 02:49 PM Balloon catheter removed intact. lparsley 02:49 PM Guide wire removed intact. lparsley 02:50 PM Bolus angiogram of right Femoral complete: 4 ml/sec for a total of 7 mls lparsley 02:50 PM Time: 14:35 Patient comfortable and pain free: Yes l[facility]ley 02:50 PM Time: 14:35LOC: 4 = Oriented but drowsy l[facility]ley 02:51 PM HR=65 bpm, UXOJ=112/72 mmhg, SpO2=92.0 %, Comment=NSR 02:51 PM Procedure completed at 14:51 lparsley 02:52 PM Did you address CARLOS flow and Dominance? Yes lparsley 02:52 PM Sign out completed: Radiation Dose 398.56 mGy Fluoro Time: 4.0 Isovue 370 - 200ml contrast 101 ml given by Ted Crowe MD, FACC. Complications: NoneCardiac Rehab Consult needed: YesConfirmed administered medications: Yes lparsley 02:54 PM Isovue 370 - 200ml,1 Bottle(s) used. lparsley 02:55 PM At 14:54 the ACT was 242 seconds. lparsley 02:55 PM Sheath left in place to be pulled on floor/holding area l[facility]ley 02:55 PM Estimated Blood Loss: less than 20cc lparsley 02:55 PM Post ECG NSR l[facility]ley 02:56 PM Post Blood Pressure 107/72 lparsley 02:56 PM 14:56 Post Pulses Bilateral DP & PT 2+ lparsley 02:56 PM HR=61 bpm, XGMS=447/72 mmhg, SpO2=94.0 %, Comment=NSR 02:56 PM Information taught Cardiac Cath and PCI lparsley 02:56 PM Education needs Procedure, Plan of Care, and Safe & Effective Use of Medications lparsley 02:56 PM Learning barriers :None lparsley 02:56 PM Education Methods Verbal l[facility]ley 02:56 PM Education evaluation Able to repeat information lparsley 02:56 PM Site status No bleeding/hematoma - Rt Groin as reported by Katerine Evans RT at 14:56 lparsley 02:56 PM Opsite applied lparsley 02:[address] to right ear upon leaving lab. lparsley 02:57 PM Report given to Yumiko JOHNSON Pt taken to 2N Room #6. 14:56 lparsley 02:57 PM Plavix, Effient or Brilinta given No lparsley 02:57 PM Delay to floor No lparsley 02:57 PM Patient out of room: 14:57 lparsley 02:57 PM Family placed in consult room. lparsley 02:57 PM Complications: None lparsley 02:57 PM Fluoro Time: 4 lparsley 02:57 PM Isovue 370 - 200ml contrast 101 ml given by Ted Crowe MD, FACC. lparsley 02:57 PM Radiation Dose 398.56 mGy [facility] Complications Complication None Hemodynamics Pressures Site Systolic/A Wave Diastolic/V Wave Mean AO 90 71 82 AO 91 74 83 LV 111 -2 11 LV 109 1 13 AO 103 69 84 AO 91 69 80 AO 89 76 83 Post Procedure Information Blood Pressure: 107/72 mmHg Rhythm: NSR Post procedural instructions were given Site Checks Time Location Status Staff Sheath In? Note 02:56 PM Rt Groin No bleeding/hematoma Katerine Evans RT Yes Pulses Time Site Pre-Procedure Post-Procedure Note 04/02/2017 2:21:00 PM Bilateral DP & PT 2+ 04/02/2017 2:21:00 PM Bilateral radial 2+ 2:56:00 PM Bilateral DP & PT 2+ Updated by Genoveva Palacio RN on 04/02/2017 3:05:03 PM electronically signed on 04/02/2017 3:05:53 PM with status of Final
[2017-04-02] MEDS ORDERED: *HR* Atropine Sulfate 1 MG/10 ML SYRINGE ONE (17:39)
--- NOTE | 2017-04-02 18:09 | Electrocardiograph Report ---
D[facility] Test Date: 2017-03-31 Pat Name: Christopher Do Department: 102 Room: 2N06 Gender: M Systems Integrator: : 1955 Requested By: Grupo Cruz Order Number: [id number] Reading MD: Kevin Mcneill MD Measurements Intervals Lesage Rate: 93 P: 58 CT: 168 QRS: -19 QRSD: 87 T: 62 QT: 301 QTc: 352 Interpretive Statements SINUS RHYTHM LOW QRS VOLTAGE IN PRECORDIAL LEADS [QRS DEFLECTION < 1.0 mV IN CHEST LEADS] MODERATE T-WAVE ABNORMALITY, CONSIDER ANTERIOR ISCHEMIA [-0.1+ mV T WAVE IN V3/V4] WARNING: DATA QUALITY MAY AFFECT INTERPRETATION Electronically Signed On 04-02-2017 18:07:20 EST by Kevin Mcneill MD
[2017-04-02] MEDS: Famotidine 20 MG TABLET PO SCH (20:52)
[2017-04-03] MEDS: *HR* Heparin 5,000 UNIT/ML VIAL SQ SCH (05:05)
[2017-04-03 05:08] LABS: Basophils # 0.1 K/mcL (0.0-0.2); Basophils % 0.6 %; Eosinophils # 0.2 K/mcL (0.0-0.6); Eosinophils % 2.4 %; Hematocrit 43.1 % (37.5-50.1); Hemoglobin 14.4 g/dL (12.9-16.9); Immature Granulocytes % 0.5 % (0-4); Lymphocytes # 2.6 K/mcL (0.6-4.6); Lymphocytes % 25.8 %; Mean Corpuscular HGB Conc 33.4 g/dL (31.6-35.5); Mean Corpuscular Hemoglobin 30.6 pg (28.0-33.3); Mean Corpuscular Volume 91.5 fL (83.0-100.0); Mean Platelet Volume 11.3 fL (9.4-12.4); Monocytes % 9.8 %; Neutrophils # 6.2 K/mcL (1.6-8.9); Platelet Count 174 K/mcL (140-400); Red Blood Count 4.71 M/mcL (4.19-5.50); Red Cell Distribution Width 12.3 % (11.5-14.5); Segmented Neutrophils % 60.9 %
[2017-04-03 06:44] LABS: Alanine Aminotransferase 16 Units/L (7-52); Albumin 3.6 g/dL (3.5-5.7); Albumin/Globulin Ratio 1.9 (1.1-2.2); Alkaline Phosphatase 41 Units/L (34-104); Aspartate Amino Transferase 10 Units/L (13-39); BUN/Creatinine Ratio 19 (6-26); Bilirubin,Total 0.5 mg/dL (0.3-1.0); Blood Urea Nitrogen 15 mg/dL (8-23); Calcium 8.4 mg/dL (8.6-10.3); Carbon Dioxide 19 mEq/L (23-29); Chloride 111 mEq/L (98-107); Globulin 1.9 g/dL (2.4-3.5); Glucose 83 mg/dL (70-105); Osmolality,Calculated 286 (280-300); Potassium 3.9 mEq/L (3.5-5.1); Sodium 138 mEq/L (136-145); Total Protein 5.5 g/dL (6.4-8.9); eGFR For African Americans > 60 (> 60); eGFR For Non-African Americans > 60 (> 60)
[2017-04-03 07:07] VITALS: BP 113/79
[2017-04-03] MEDS: Isosorbide MONOnitrate (24 HR) 60 MG TAB.ER.24H PO SCH (08:05)
[2017-04-03] MEDS: Aspirin 81 MG TAB.CHEW PO SCH (08:05)
--- NOTE | 2017-04-03 09:24 | Discharge Summary ---
<Ab Chambers - Last Filed: 04/03/17 09:21> Date of Encounter: 04/03/17 Time of Encounter: 09:21 - Discharge Diagnosis (1) CAD (coronary artery disease) Priority: Primary Status: Chronic Qualifiers: Coronary Disease-Associated Artery/Lesion type: [place] artery [place] vs. transplanted heart: [place] heart Associated angina: with unstable angina Qualified Code(s): I25.110 - Atherosclerotic heart disease of [place] coronary artery with unstable angina pectoris (2) History of ST elevation myocardial infarction (STEMI) Priority: Secondary Status: Acute (3) DVT prophylaxis Priority: Secondary Status: Acute - Discharge Medications Prescriptions: Isosorbide MONOnitrate (24 HR) [Imdur] 60 mg PO DAILY #30 tab.er.24h Home Medications: Aspirin 81 mg PO DAILY tab.chew 12/17/16 [Rx] Clopidogrel [Plavix] 75 mg PO DAILY #30 tablet 12/17/16 [Rx] Metoprolol [Lopressor] 25 mg PO BID #60 tablet 12/17/16 [Rx] Atorvastatin [Lipitor] 80 mg PO HS 01/29/17 [History] raNITIdine HCl [Ranitidine HCl] 150 mg PO HS 01/29/17 [History] Acetaminophen [Tylenol] 650 mg PO Q6HR PRN tablet 01/30/17 [Rx] Nitroglycerin 0.4 mg SL Q5MIN PRN #30 tab.subl 01/30/17 [Rx] Amlodipine Besylate 2.5 mg PO DAILY 03/31/17 [History] Isosorbide MONOnitrate (24 HR) [Imdur] 60 mg PO DAILY #30 tab.er.24h 04/03/17 [ Rx] Allergies/Adverse Reactions: 3 Allergy/AdvReac Type Severity Reaction Status Date / Time Penicillins [PCN] Allergy Hives Verified 01/30/17 10:52 Procedures/tests Complete & Pending: Procedures Performed prior 72 hours Category Date Time Status CL Cardiac Catheterization [CL] Routine Java Programmer 04/02/17 08:20 Ordered NM marva perf SPECT multi [NM] Routine Exams 04/01/17 10:04 Taken ECG 12 lead ECG [ECG] AM 0600 Y 04/03/17 06:00 Ordered EV limited echocardiogram Routine Y 04/01/17 10:59 Completed SP pharm nuclear stress Routine Y 04/01/17 10:03 Completed Date of admission: 03/31/17 15:22 Primary care physician: Constance Mckeon CNP Discharging clinician: Ab Chambers Anticipated date of discharge: 04/03/17 - Patient Status Disposition: Home, Self-Care Condition: Fair - Discharge Instructions Instructions: Left Heart Catheterization (DC), How to Stop Smoking (DC), Heart Healthy Diet (DC) Follow Up With: Ted Crowe MD [Partnered Physician] - (office will call patient at home with follow up appointment) Constance Mckeon CNP [Primary Care Provider] - 04/08/17 3:00 pm Additional Instructions: RISK FACTORS: STOP SMOKING: If you smoke, STOP. Smoking or tobacco use significantly increases your risk of heart disease because nicotine causes the arteries to narrow or constrict. It also causes fats to stick to the artery. Your chances of having a heart attack are greatly increased if you continue to smoke. For more information, call the education line for smoking cessation 9-677-YARYXPM EAT A LOW FAT/CHOLESTEROL/SODIUM DIET: This diet may help reduce your chances of having a heart attack. LIFTING: Avoid lifting anything more than 10 pounds for 5-7 days Prior to straining, laughing, sneezing and/or coughing, apply manual pressure directly over insertion site. ACTIVITY: You may walk or climb stairs as tolerated You can resume sexual activity as tolerated In general, you are encouraged to engage in a minimum of 30 minutes or more of moderate intensity physical activity, such as brisk walking, daily or at least 3 -4 times weekly BATHING Do not submerge the site into water (bath tub, hot tub, swimming pool) for 1 week. This can be a source for infection into the blood stream. You may shower after 24 hours SITE CARE: After 24 hours, you may remove the dressing and leave the site open to air. Keep the site clean and dry. Clean gently and pat dry. You can expect bruising and tenderness that gradually resolve within a week or two. Return to work as instructed per your physician Resume driving as instructed per physician Keep all scheduled follow up appointments Resume medications as instructed IMPORTANT: If prescribed a Platelet Aggregation Inhibitor such as, Plavix, Brilinta or Effient: Duration of therapy is minimum one year These medications are often used in combination with Aspirin in prevention of future heart attacks Never discontinue unless consult with your Manager [place] STROKE (CVA) Risk factors for a stroke are: Age, cigarette smoking, diabetes, excessive alcohol consumption, family history, high blood pressure, overweight, physical inactivity, prior stroke, heart attack, diagnosis of carotid artery stenosis or other artery disease. Warning signs: Sudden numbness or weakness of the face, arm or leg; especially on one side of the body, sudden confusion, trouble speaking or understanding, sudden trouble seeing in one or both eyes, sudden trouble walking, dizziness, loss of balance or coordination, sudden severe headache with no cause. Call 911 or go to the Emergency Room. CONGESTIVE HEART FAILURE: If you have been diagnosed with Congestive Heart Failure (CHF) and your symptoms return, make an appointment with your physician Weigh yourself daily. Notify your physician if you have a weight gain of two or more pounds in one day or five or more pounds in one week. If you experience any difficulty breathing, please call 911 BLEEDING: Although the risk of bleeding is minimal, it can happen. If you have any bleeding from the site, apply firm pressure above the puncture site for 10-15 minutes. If the bleeding does not stop, continue manual pressure and call 911 Contact your physician if: You develop a fever greater than 101 degrees Fahrenheit Your site becomes reddened or has any drainage You have an increase in pain or burning at the site or if a large knot forms at the site. If you experience chest pain, shortness of breath, dizziness, or extreme tiredness, stop the activity and rest. Please notify your physicians office if you experience any of these symptoms and they are not relieved by rest please call 911! - Diet and Activity Activity: increase activity as tolerated Diet: low fat, low cholesterol, low salt diet Interval History: Mr. Do is a 62 year old male with a history of coronary artery disease status post PCI to mid LAD in December 2016 presents to the emergency room with unstable angina not responsive to sublingual Nitro Q5min x3 doses. He was seen by cardiology upon admission and proceed with low-level nonexercise nuclear stress test for further evaluation of his symptoms. Troponin level was negative x3 and he remained on telemetry. He was kept NPO and underwent stress test that demonstrated mild intensity resting perfusion defect involving the apex, apical inferior wall and apical septum demonstrating a moderately-severe perfusion defect during stress. Findings may represent infarct with candelaria-infarct ischemia. He was kept NPO over night and underwent LHC on 04/02/2017 and required PCI to affected vessels. He was transferred to ICU step down and monitored over night. He was seen and evaluated on 04/03/2017 and deemed stable for discharge home with close follow up with his PCP and Cardiology. He was provided a new script of Imdur at 60mg po daily. Hospital course: Mr. Do is a 62 year old male - Time Spent with Patient Total time spent providing and/or coordinating discharge services: - Constitutional Vitals: Temp Pulse Resp BP Pulse Ox 98.5 F 55 18 113/79 93 04/03/17 07:04 04/03/17 07:04 04/03/17 07:04 04/03/17 07:04 04/03/17 07:04 Exam: General: Patient alert, awake, oriented 3, interactive, in no acute distress HEENT: Normocephalic, atraumatic, pupils equal reactive to light, oral mucosa moist, uvula midline, neck supple trachea midline no palpable lymphadenopathy, no thyromegaly. Chest: Symmetric bilateral correlating with respiratory effort, effort nonlabored. Cardiac: Regular rate and rhythm, positive S1 and S2. no bruits appreciated bilateral carotids, Radial pulses 2+ bilateral, posterior tibial and dorsal pedal pulses 2+ bilateral. Respiratory: Clear to auscultation all lung king Abdomen: Soft, nontender, positive bowel sounds, no palpable masses appreciated on examination Extremities: Symmetric bilateral, bilateral lower extremities without erythema or edema patient moving all 4 extremities spontaneously. Neurologic: No focal deficits appreciated on examination. Face symmetric, muscle strength symmetric bilateral upper and lower extremities. - VTE Documentation of Mechanical Device: Intermittent pneumatic compression device <Steve Livingston - Last Filed: 04/03/17 12:45> Date of Encounter: 04/03/17 - Discharge Diagnosis (1) Unstable angina Priority: Primary Status: Acute (2) CAD (coronary artery disease) Priority: Primary Status: Chronic Qualifiers: Coronary Disease-Associated Artery/Lesion type: [place] artery [place] vs. transplanted heart: [place] heart Associated angina: with unstable angina Qualified Code(s): I25.110 - Atherosclerotic heart disease of [place] coronary artery with unstable angina pectoris (3) History of ST elevation myocardial infarction (STEMI) Status: Chronic Procedures/tests Complete & Pending: Procedures Performed prior 72 hours Category Date Time Status CL Cardiac Catheterization [CL] Routine Java Programmer 04/02/17 08:20 Ordered NM marva perf SPECT multi [NM] Routine Exams 04/01/17 10:04 Taken ECG 12 lead ECG [ECG] AM 0600 Y 04/03/17 06:00 Ordered EV limited echocardiogram Routine Y 04/01/17 10:59 Completed SP pharm nuclear stress Routine Y 04/01/17 10:03 Completed Date of admission: 03/31/17 15:22 Primary care physician: Constance Mckeon CNP Consults: 04/03/17 11:22 Consult to Cardiac Rehabilitation-Phase1 [CONS] Routine Comment: Reason for Consult: PCI Call Completed: No Hospital course: Mr. Do is a 62 year old male - Time Spent with Patient Total time spent providing and/or coordinating discharge services: - Constitutional Vitals: Temp Pulse Resp BP Pulse Ox 98.9 F 69 20 113/79 95 04/03/17 10:51 04/03/17 10:51 04/03/17 10:51 04/03/17 10:51 04/03/17 10:51 - Attending Attestation I examined this patient and my medical decision-making was reviewed with the Resident Physician on 04/03/17. I agree with the documented findings, disposition and treatment plan as described except to the extent set forth below. Mr. Do has been in observation for unstable angina. He is s/p PTCA. Today he feels at baseline and pain has resolved. He is afebrile with stable vitals and ready for discharge home. Exam alert. Comfortable Mucus membranes dry Heart reg No wheeze Abd soft Plan D/C home today
--- NOTE | 2017-04-03 09:52 | Cardiology Progress Note ---
Date of Encounter: 04/03/17 Time of Encounter: 09:00 Assessment and Plan (1) Abnormal stress test Current Visit: Yes Status: Acute Stress test showed mild intensity resting perfusion defect involving the apex, apical inferior wall and apical septum demonstrating a moderately-severe perfusion defect during stress. Findings may represent infarct with candelaria-infarct ischemia. TTE showed preserved EF. Recommended for [facility]. [facility] 04/02/17- PTCA to the 1st DX artery. There was a 40 % stenosis in the mLAD, 30% stenosis pRCA, and 50% stenosis in the mRCA remaining. There was no complication from the procedure. Denies recurrent chest pain. No complications from right femoral access site. Importance of DAPT with asa and plavix uninterrupted for minimum of one year discussed and he voiced understanding. Continue statin and BB. Activity restrictions reviewed as stated above. Cardiac rehab ordered. Cardiology will sign off. Out-pt f/u will be coordinated by [facility]. (2) CAD (coronary artery disease) Current Visit: No Status: Chronic Per Cardiology: S/p PTCA to the DX artery. There was a 40 % stenosis in the mLAD, 30% stenosis pRCA, and 50% stenosis in the mRCA remaining. Past history of acute STEMI December 2016. At that time underwent PTCA with drug-eluting stent to mid LAD 99 % lesion. On asa, plavix, statin, BB, imdur. Qualifiers: Coronary Disease-Associated Artery/Lesion type: [place] artery [place] vs. transplanted heart: [place] heart Associated angina: with unstable angina Qualified Code(s): I25.110 - Atherosclerotic heart disease of [place] coronary artery with unstable angina pectoris Discussion w patient/family: The assessment and plan as outlined above was discussed with the patient and/or family members who expressed understanding and agreement. All questions were answered. Thank you for involving us in the care of your patient. Please call with any questions. Subjective Principal diagnosis: Chest pain Interval history: Denies recurrent chest pain. No problem with right groin access. Objective Vital Signs, Last 4 Hours Temp Pulse Resp BP Pulse Ox 04/03/17 07:04 98.5 F 55 18 113/79 93 General: Conversant, No Apparent Distress HEENT: Atraumatic, Normocephaly, Mucus Membranes Moist Neck: No JVD, Normal carotid pulses Cardiac: Reg Rate and Rhythm, Normal S1 and S2, No Murmur Lungs: Normal Breath Sounds, No Wheeze, Rales, Rhonchi Neuro: Alert and responsive, No focal deficits noted Abdomen: Soft, Non-Tender Skin: No rashes noted on visualized skin Musculoskeletal: No Chest Wall Tenderness Extremities: No Clubbing, No Cyanosis, No Edema, Normal Pulses, Other (Right femoral access without redness, swelling, or edema. ) Results 04/03/17 03:16 04/03/17 03:16 Lab Results 04/03/17 04/03/17 03:16 03:16 WBC 10.1 Hgb 14.4 Hct 43.1 Plt Count 174 Sodium 138 Potassium 3.9 Chloride 111 H Carbon Dioxide 19 L BUN 15 Creatinine 0.78 Glucose 83 Calcium 8.4 L Total Bilirubin 0.5 AST 10 L ALT 16 Alkaline Phosphatase 41 - Imaging and Cardiology Cardiac cath: report reviewed - EKG Interpretation EKG results cardiology: personally reviewed - VTE Documentation of Mechanical Device: Intermittent pneumatic compression device Consult Discharge Plan - Plan Referrals: Ted Crowe MD [Partnered Physician] - (office will call patient at home with follow up appointment) Constance Mckeon CNP [Primary Care Provider] - 04/08/17 3:00 pm Prescriptions: Isosorbide MONOnitrate (24 HR) [Imdur] 60 mg PO DAILY #30 tab.er.24h
== END 2017-04-03 11:45 | disposition home or self-care (01) ==
LOC: 2NENU 11:21 → EMEROO 11:21 → SUATTDRO 15:22 → 2NENU 15:31 → 2NNU 04-02 15:09
PROVIDERS: ADMIT Hospitalist; ATTEND Internal Medicine

== ENCOUNTER 2017-08-17 03:29 | Observation (INO) ==
[~2017-08-17 03:29] MED LIST changes: -*HR* Morphine 2 MG/ML SYRINGE IVP PRN; -0.9 % Sodium Chloride 1,000 ML IVC SCH; -Aspirin 81 MG TAB.CHEW PO SCH; -Famotidine 20 MG TABLET PO SCH; -Isosorbide MONOnitrate (24 HR) 30 MG TAB.ER.24H PO SCH; -Nitroglycerin 0.4 MG TAB.SUBL SL PRN; -Ondansetron 4 MG/2 ML VIAL IVP PRN
[2017-08-17] MEDS ORDERED: Ipratropium/Albuterol Neb 3 ML IH PRN (03:36)
[2017-08-17] MEDS ORDERED: *HR* Heparin 5,000 UNIT/ML VIAL IVP PRN ×2 (03:37)
[2017-08-17] MEDS ORDERED: Nitroglycerin 1 INCH/GM PACKET TP ONE (03:38)
[2017-08-17] MEDS ORDERED: Nitroglycerin 0.4 MG TAB.SUBL SL PRN (03:39)
[2017-08-17] MEDS ORDERED: Heparin 25,000 UNIT/500 ML D5W 25,000 UNIT/500 ML BAG IVC SCH (03:45)
--- NOTE | 2017-08-17 04:06 | Internal Med History&Physical ---
Date of Encounter: 08/17/17 Time of Encounter: 02:00 Internal Medicine - H&P: HPI Chief complaint: Chest pain Admitted From: Home Plans for Post Hospital Care: Home History of present illness: Mr. Do is a 62 year old male transferred from [facility] emergency room for chest pain. Past medical history is significant for CAD S/P stent, hypertension, COPD on home oxygen. Patient said he starts to have chest pain since Friday morning. The pain located on left chest and radiated to bilateral shoulders. Patient has shortness of breath. Patient denies nausea or vomiting. Patient has diaphoresis. Patient said the pain is constant on Friday for the whole day. But the pain is intermittent on Friday and relieved by nitroglycerin. Patient has recent stent placed by our hospital cardiology. In [facility] the emergency room, EKG unremarkable. Patient was started heparin drip for unstable angina. Patient was transferred to our hospital for further management. Patient also complaining of cough for 3 days with yellowish sputum. Patient has increased the shortness of breath as well. Past Med Surg Social Fam HX - Past Medical History Medical history: COPD, coronary artery disease, GERD, hyperlipidemia, hypertension, migraine, myocardial infarction Additional medical history: cardiac stent and [place] 12/24 Psychiatric history: anxiety, bipolar, depression - Past Surgical History Surgical History: no surgical history, other Additional surgical history: stent placement December 2016 - Social History Smoking Status: Current every day smoker Smokeless Tobacco Status: No Alcohol use: none Drug use: none - Family History Mother Living Status: Hx Family Cancer: Yes Father Living Status: Brother Living Status: Internal Medicine - H&P: Meds Aspirin 81 mg PO DAILY tab.chew 12/17/16 [Rx] Clopidogrel [Plavix] 75 mg PO DAILY #30 tablet 12/17/16 [Rx] Metoprolol [Lopressor] 25 mg PO BID #60 tablet 12/17/16 [Rx] Atorvastatin [Lipitor] 80 mg PO HS 01/29/17 [History] raNITIdine HCl [Ranitidine HCl] 150 mg PO HS 01/29/17 [History] Acetaminophen [Tylenol] 650 mg PO Q6HR PRN tablet 01/30/17 [Rx] Nitroglycerin 0.4 mg SL Q5MIN PRN #30 tab.subl 01/30/17 [Rx] Amlodipine Besylate 2.5 mg PO DAILY 03/31/17 [History] Isosorbide MONOnitrate (24 HR) [Imdur] 60 mg PO DAILY #30 tab.er.24h 04/03/17 [ Rx] 3 Allergy/AdvReac Type Severity Reaction Status Date / Time Penicillins [PCN] Allergy Hives Verified 08/16/17 23:13 All Systems PM: A 10-system review of systems was performed and is negative for pertinent findings except as documented above in the HPI. - Constitutional Vitals: Temp Pulse Resp BP Pulse Ox 97.9 F 80 17 115/78 97 08/17/17 02:29 08/17/17 02:29 08/17/17 02:29 08/17/17 02:29 08/17/17 03:00 General appearance: Present: mild distress, A&O X 3, answers questions appropriately - Head Head exam: Present: atraumatic, normocephalic - Eye Eye exam: Present: PERRL, conjuntiva pink, sclera anicteric Pupils: Present: PERRL - Neck Neck exam general surgery: Present: supple, trachea midline. Absent: lymphadenopathy - Respiratory Respiratory exam: Present: CTAB, wheezes (Diffuse wheezes bilaterally). Absent : accessory muscle use, rales, rhonchi - Cardiovascular Cardiovascular exam: Present: RRR, +S1, +S2. Absent: diastolic murmur, gallop, rubs, systolic murmur - GI/Abdominal GI/Abdominal exam: Present: normal bowel sounds, soft, no peritoneal signs. Absent: distended, tenderness - Extremities Exam Extremities exam: Present: warm, radial pulses palpable and symmetrical. Absent : calf tenderness, cyanotic, pedal edema - Neurological Exam Neurological exam: Present: CN II-XII intact, oriented X3, no focal deficits. Absent: pronater drift, facial droop, speech deficit - Skin Skin exam: Present: dry, intact - Assessment and plan (1) COPD exacerbation Current Visit: Yes Status: Acute Assessment and plan: Patient has increased the shortness of breath, cough, and diffused wheezing, consider COPD exacerbation. Chest x-ray unremarkable - Treat patient with IV azithromycin, DuoNeb, and by mouth prednisone - Cough syrup for cough - Continue oxygen (2) DVT prophylaxis Current Visit: No Status: Acute Assessment and plan: Patient is on heparin drip (3) Unstable angina Current Visit: No Status: Acute Assessment and plan: Patient has a history of CAD S/P stent. With typical chest pain respond to nitroglycerin. Consider unstable angina. - Pain is much less on heparin drip and nitroglycerin paste, will continue. - Continuous cardiac monitoring - Track 3 sets of troponin - Consul cardiology as patient has recent stent and unstable angina (4) CAD (coronary artery disease) Current Visit: No Status: Chronic Assessment and plan: S/P stent. Continue home medications aspirin, Plavix, metoprolol, atorvastatin , and imdur Qualifiers: Coronary Disease-Associated Artery/Lesion type: [place] artery [place] vs. transplanted heart: [place] heart Associated angina: with unstable angina Qualified Code(s): I25.110 - Atherosclerotic heart disease of [place] coronary artery with unstable angina pectoris (5) Nicotine abuse Current Visit: No Status: Chronic Assessment and plan: Place patient on nicotine patch - Time Spent With Patient Total time spent is greater than 50% in coordination of care (as documented) at patient's floor/unit and/or counseling patient: 40 minutes Greater than 35 minutes
[2017-08-17] MEDS: Ipratropium/Albuterol Neb 3 ML IH SCH ×4 (04:34→22:48)
[2017-08-17 04:37] LABS: Basophils # 0.1 K/mcL (0.0-0.2); Basophils % 0.5 %; Eosinophils # 0.2 K/mcL (0.0-0.6); Eosinophils % 1.6 %; Hematocrit 43.4 % (37.5-50.1); Hematocrit 43.9 % (37.5-50.1); Hemoglobin 14.8 g/dL (12.9-16.9); Immature Granulocytes % 0.6 % (0-4); Lymphocytes # 2.1 K/mcL (0.6-4.6); Lymphocytes % 17.2 %; Mean Corpuscular HGB Conc 33.7 g/dL (31.6-35.5); Mean Corpuscular HGB Conc 34.1 g/dL (31.6-35.5); Mean Corpuscular Hemoglobin 30.9 pg (28.0-33.3); Mean Corpuscular Hemoglobin 31.2 pg (28.0-33.3); Mean Corpuscular Volume 91.4 fL (83.0-100.0); Mean Corpuscular Volume 91.6 fL (83.0-100.0); Mean Platelet Volume 10.8 fL (9.4-12.4); Monocytes # 1.3 K/mcL (0.0-1.3); Monocytes % 10.3 %; Neutrophils # 8.5 K/mcL (1.6-8.9); Platelet Count 190 K/mcL (140-400); Platelet Count 194 K/mcL (140-400); Red Blood Count 4.75 M/mcL (4.19-5.50); Red Blood Count 4.79 M/mcL (4.19-5.50); Red Cell Distribution Width 12.5 % (11.5-14.5); Red Cell Distribution Width 12.6 % (11.5-14.5); Segmented Neutrophils % 69.8 %
[2017-08-17] MEDS: Azithromycin 500 MG in D5% in Water 250 ML IVPB SCH (04:38)
[2017-08-17 04:42] LABS: Prothrombin Time 11.1 Seconds (9.4-12.1)
[2017-08-17 04:45] LABS: Activated Partial Thrombo Time 31.4 Seconds (26.0-36.0)
[2017-08-17 04:56] LABS: BUN/Creatinine Ratio 19 (6-26); Blood Urea Nitrogen 14 mg/dL (8-23); Calcium 8.7 mg/dL (8.6-10.3); Carbon Dioxide 21 mEq/L (23-29); Chloride 108 mEq/L (98-107); Glucose 119 mg/dL (70-105); Osmolality,Calculated 280 (280-300); Sodium 134 mEq/L (136-145); eGFR For African Americans > 60 (> 60); eGFR For Non-African Americans > 60 (> 60)
--- NOTE | 2017-08-17 07:48 | Cardiology Consult Note ---
Date of Encounter: 08/17/17 Time of Encounter: 07:45 Assessment and Plan (1) COPD exacerbation Current Visit: Yes Status: Acute Per Cardiology: Suspected COPD exacerbation. Management per primary service. Chest x-ray stable. (2) CAD (coronary artery disease) Current Visit: No Status: Chronic Per Cardiology: Hx STEMI 12/2016 and MARYAN mid LAD. Abnormal stress test March 2017. Left heart catheterization March 2017: Lesion Findings/Interventions * Left Main Coronary Artery The LMCA is angiographically free of disease. * Left Anterior Descending The Mid LAD has patent stents present from a previous procedure. There is a 20-30% stenosis in the Mid LAD prior to stent. The lesion has a CARLOS flow of 3. There is a 8 mm long, 95% stenosis in the 1st Diagonal. The lesion has a CARLOS flow of 3. An intervention was performed on the 1st Diagonal with a final stenosis of 10-20%. There were no lesion complications. The final CARLOS flow was 3. * Circumflex The Circumflex has minimal disease The 1st Marginal has minimal disease * Right Coronary Artery There is a 50-60% stenosis in the Proximal RCA. The lesion has a CARLOS flow of 3. There is a 50% stenosis in the Mid RCA. The lesion has a CARLOS flow of 3. First troponin negative. On aspirin, Plavix, statin, beta anam, long-acting nitrate, IV heparin drip. Symptoms occurring in setting of suspected COPD exacerbation. Continue cycle troponins. We will discontinue heparin drip. Assuming troponins remain negative, cardiology will sign off, reconsult as needed, follow-up arranged. We will titrate long-acting nitrate. Patient agreeable to plan. Will discuss review with Dr. Crowe. Qualifiers: Coronary Disease-Associated Artery/Lesion type: [place] artery [place] vs. transplanted heart: [place] heart Associated angina: with unstable angina Qualified Code(s): I25.110 - Atherosclerotic heart disease of [place] coronary artery with unstable angina pectoris Discussion w patient/family: The assessment and plan as outlined above was discussed with the patient and/or family members who expressed understanding and agreement. All questions were answered. Thank you for involving us in the care of your patient. Please call with any questions. History of Present Illness Consult date: 08/17/17 Requesting physician: Fawn Santana Consult reason: CP Chief complaint: CP, SOB History of present illness: Mr. Do is a 62 year old male with a relevant past medical history of COPD, nicotine abuse, hypertension, hyperlipidemia, CAD. Cardiology consult for chest pain and shortness of breath. Patient reports increased shortness of breath from baseline with positive cough and production of yellow sputum the past 3-4 days. He denies any fever, chills , nausea, vomiting, diarrhea. Reports developed bilateral upper chest wall and bilateral shoulder chest discomfort yesterday morning. He reports symptoms relieved somewhat with nitroglycerin pills. Currently chest pain-free. Reports compliance medications. Denies any active bleeding or blood loss. Reports shortness of breath has improved during hospital stay. Past Med Surg Social Fam HX - Past Medical History Attestation: Yes The following information was validated with the patient. Source: patient, old records reviewed Medical history: COPD, coronary artery disease, GERD, hyperlipidemia, hypertension, migraine, myocardial infarction Additional medical history: cardiac stent and [place] 12/24 Psychiatric history: anxiety, bipolar, depression - Past Surgical History Surgical History: no surgical history, other Additional surgical history: stent placement December 2016 - Social History Smoking Status: Current every day smoker Smokeless Tobacco Status: No Alcohol use: none Drug use: none - Family History Mother Living Status: Hx Family Cancer: Yes Father Living Status: Brother Living Status: Medications and Allergies Aspirin 81 mg PO DAILY tab.chew 12/17/16 [Rx] Clopidogrel [Plavix] 75 mg PO DAILY #30 tablet 12/17/16 [Rx] Metoprolol [Lopressor] 25 mg PO BID #60 tablet 12/17/16 [Rx] Atorvastatin [Lipitor] 80 mg PO HS 01/29/17 [History] raNITIdine HCl [Ranitidine HCl] 150 mg PO HS 01/29/17 [History] Acetaminophen [Tylenol] 650 mg PO Q6HR PRN tablet 01/30/17 [Rx] Nitroglycerin 0.4 mg SL Q5MIN PRN #30 tab.subl 01/30/17 [Rx] Amlodipine Besylate 2.5 mg PO DAILY 03/31/17 [History] Isosorbide MONOnitrate (24 HR) [Imdur] 60 mg PO DAILY #30 tab.er.24h 04/03/17 [ Rx] 3 Allergy/AdvReac Type Severity Reaction Status Date / Time Penicillins [PCN] Allergy Hives Verified 08/16/17 23:13 All Systems Review: The remainder of the systems were reviewed and are negative - Cardiovascular Cardiovascular: as per HPI, chest pain at rest, chest pain with exertion, dyspnea at rest, dyspnea on exertion - Respiratory Respiratory: cough, other (Yellow sputum) Physical Examination Vital Signs, Last 4 Hours Resp Pulse Ox 08/17/17 04:38 17 97 General: Conversant HEENT: Atraumatic, Normocephaly, Mucus Membranes Moist Neck: No JVD, Normal carotid pulses Cardiac: Reg Rate and Rhythm, Normal S1 and S2, No Murmur Lungs: Other (Respirations mild to moderately labored at rest, slightly diaphoretic, diminished breath sounds throughout, utilizes home oxygen) Neuro: Alert and responsive, No focal deficits noted Abdomen: Soft, Non-Tender Skin: No rashes noted on visualized skin Musculoskeletal: No Chest Wall Tenderness Extremities: No Clubbing, No Cyanosis, No Edema, Normal Pulses Results 08/17/17 03:54 08/17/17 03:54 Lab Results Laboratory Tests 08/17/17 08/17/17 08/17/17 03:54 03:54 03:54 INR 1.0 Creatinine 0.72 Est GFR (Non-Af Amer) > 60 Magnesium 2.0 Troponin I < 0.03 Active Medications Acetaminophen (Tylenol) 650 mg PO Q6H PRN PRN Reason: Mild Pain/Fever Stop: 02/16/18 03:30 Last Admin: 08/17/17 05:57 Dose: 650 mg Albuterol/Ipratropium (Duoneb) 3 ml IH [id number] PRN PRN Reason: Shortness Of Breath/Wheezing Stop: 02/16/18 03:37 Albuterol/Ipratropium (Duoneb) 3 ml IH [id number] SONAL Stop: 02/16/18 04:01 Last Admin: 08/17/17 04:34 Dose: 3 ml Amlodipine Besylate (Norvasc) 2.5 mg PO DAILY SON[facility] Stop: 02/16/18 09:01 Aspirin (Aspirin) 81 mg PO DAILY [facility]ON[facility] Stop: 02/16/18 09:01 Atorvastatin Calcium (Lipitor) 80 mg PO HS [facility] Stop: 02/16/18 21:01 Clopidogrel Bisulfate (Plavix) 75 mg PO DAILY [facility] Stop: 02/16/18 09:01 Famotidine (Pepcid) 20 mg PO HS [facility] Stop: 02/16/18 21:01 Guaifenesin (Robitussin/Dm) 10 ml PO Q6HR [facility] Stop: 02/16/18 06:01 Last Admin: 08/17/17 04:49 Dose: 10 ml Heparin Sodium (Porcine) (Heparin) 4,000 unit IVP Q6HR PRN PRN Reason: SEE COMMENTS Stop: 02/16/18 03:38 Heparin Sodium (Porcine) (Heparin) 2,000 unit IVP Q6H PRN PRN Reason: SEE COMMENTS Stop: 02/16/18 03:38 Azithromycin 500 mg/ Dextrose 250 mls @ 252 mls/hr IVPB Q24H [facility] Stop: 02/16/18 04:01 Last Admin: 08/17/17 04:38 Dose: 252 mls/hr Heparin Sodium/Dextrose (Heparin 25,000 Unit/500 Ml D5w) 25,000 unit in 500 mls @ 19.913 mls/hr IVC .Q24H SONAL; 11.7 UNIT/KG/HR PRN Reason: Protocol Stop: 02/16/18 03:46 Last Admin: 08/17/17 04:37 Dose: 11.7 unit/kg/hr, 19.913 mls/hr Isosorbide Mononitrate (Imdur) 60 mg PO DAILY [facility] Stop: 02/16/18 09:01 Metoprolol Tartrate (Lopressor) 25 mg PO BID [facility] Stop: 02/16/18 09:01 Naloxone HCl (Narcan) 0.4 mg IVP Q2MIN PRN PRN Reason: SEE COMMENTS Stop: 02/16/18 03:30 Nicotine (Nicoderm) 14 mg TD DAILY [facility] PRN Reason: Protocol Stop: 02/16/18 09:01 Nitroglycerin (Nitroglycerin) 0.4 mg SL Q5MIN PRN PRN Reason: Chest Pain Stop: 02/16/18 03:40 Prednisone (Prednisone) 40 mg PO DAILY [facility] Stop: 02/16/18 09:01 - Imaging and Cardiology Stress Test: report reviewed (03/2017: Impression: There is a mild intensity resting perfusion defect involving the apex, apical inferior wall and apical septum demonstrating a moderately-severe perfusion defect during stress. Findings may represent infarct with candel[place]-infarct ischemia. Low level pharmacologic stress ECG is non diagnostic for ischemia due to baseline non- specific ST and T changes. No appreciable change in pharmacologic stress ECG from baseline. Gated EF = 67%. Abnormal findings communicated to Cardiology Service.) Cardiac cath: report reviewed (03/2017) - EKG Interpretation EKG results cardiology: personally reviewed (Sinus rhythm in the 90s, comparable to baseline ECG), normal ECG, sinus rhythm, no diagnostic ischemia Consult Discharge Plan - Plan Referrals: Constance Mckeon, CRANBERRY SORTER [Primary Care Provider] -
[2017-08-17] MEDS ORDERED: Isosorbide MONOnitrate (24 HR) 60 MG TAB.ER.24H PO SCH (09:00)
[2017-08-17] MEDS: amLODIPine 5 MG TABLET PO SCH (09:47)
[2017-08-17] MEDS: Aspirin 81 MG TAB.CHEW PO SCH (09:47)
[2017-08-17] MEDS: predniSONE 20 MG TABLET PO SCH (09:48)
[2017-08-17] MEDS: Nicotine 14 MG PATCH.TD24 TD SCH (09:48)
--- NOTE | 2017-08-17 10:57 | Event Note ---
Date of Encounter: 08/17/17 Time of Encounter: 11:00 - Cardiology Event Note Laboratory Tests 08/17/17 10:02 Troponin I < 0.03 F/u as planned.
--- NOTE | 2017-08-17 16:52 | Internal Med Progress Note ---
Date of Encounter: 08/17/17 Time of Encounter: 16:50 - Assessment and plan (1) COPD exacerbation Current Visit: Yes Status: Acute Assessment and plan: Better. Will continue Zithromax with Prednisone at 40 mg daily. Will continue nebulizer treatments with ipratropium/albuterol. (2) Chronic respiratory failure with hypoxia Current Visit: Yes Status: Acute Assessment and plan: He uses oxygen at home at 28%. Currently he is using oxygen at 28 to 32%. (3) Chest pain made worse by breathing Current Visit: Yes Status: Acute Assessment and plan: His chest pain is likely musculoskeletal. Will try lidocain patch from tomorrow morning. See my note below about her coronary artery disease. (4) CAD (coronary artery disease) Current Visit: No Status: Chronic Assessment and plan: His cardiac catheterization from March 2017 showed mild/moderate coronary artery disease. See notes from cardiology. They feel, that her chest pain is noncardiac. Qualifiers: Coronary Disease-Associated Artery/Lesion type: [place] artery [place] vs. transplanted heart: [place] heart Associated angina: with unstable angina Qualified Code(s): I25.110 - Atherosclerotic heart disease of [place] coronary artery with unstable angina pectoris (5) Pulmonary nodule Current Visit: Yes Status: Acute Assessment and plan: This problem is followed by his pulmonary diseases specialist. His last CT of the chest was done in May 2017. He will have an another one in August of this year. - Time Spent With Patient Total time spent is greater than 50% in coordination of care (as documented) at patient's floor/unit and/or counseling patient: 25 - 35 minutes - Subjective Interval history: The patient feels better. She seems to have less pain in the upper sternal area. The pain is worse with coughing and deep breathing. She was evaluated by cardiology. They call her chest pain noncardiac. She does have mild/moderate coronary artery disease - as per cardiac catheterization from March 2017. They signed off. - Constitutional Vitals: Temp Pulse Resp BP Pulse Ox 97.9 F 71 16 104/77 98 08/17/17 11:08 08/17/17 11:08 08/17/17 15:45 08/17/17 11:08 08/17/17 15:45 General appearance: Present: mild distress, A&O X 3, answers questions appropriately - Respiratory Respiratory exam: Present: CTAB. Absent: accessory muscle use, rales, rhonchi, wheezes Additional comments: There is tenderness to palpation of upper sternal area. - Cardiovascular Cardiovascular exam: Present: RRR, +S1, +S2. Absent: diastolic murmur, gallop, rubs, systolic murmur - GI/Abdominal GI/Abdominal exam: Present: normal bowel sounds, soft, no peritoneal signs. Absent: distended, tenderness - Skin Skin exam: Present: dry, intact Internal Medicine: Result - Labs CBC & Chem 7: 08/17/17 03:54 08/17/17 03:54 Labs: Short CBC 08/17/17 08/17/17 Range/Units 03:54 03:54 WBC 12.1 H 12.2 H (4.3-11.1) K/mcL Hgb 14.8 14.8 (12.9-16.9) g/dL Hct 43.9 43.4 (37.5-50.1) % Plt Count 190 194 (140-400) K/mcL Neutrophils # 8.5 (1.6-8.9) K/mcL BMP 08/17/17 03:54 Sodium 134 L Potassium 4.0 Chloride 108 H Carbon Dioxide 21 L BUN 14 Creatinine 0.72 Glucose 119 H Calcium 8.7 Cardiac Enzymes 08/17/17 08/17/17 Range/Units 03:54 10:02 Troponin I < 0.03 < 0.03 (< 0.04) ng/mL - ABG Interpretation ABG results: PT/INR, D-dimer PT 11.1 Seconds (9.4-12.1) 08/17/17 03:54 - VTE Reasons for not Prescribing Prophylaxis: Treatment not Indicated - Low risk for VTE Consult Discharge Plan - Plan Referrals: Constance Mckeon, ASSISTANT PROFESSOR OF ANTHROPOLOGY [Primary Care Provider] -
[2017-08-17] MEDS ORDERED: Famotidine 20 MG TABLET PO SCH (21:00)
[2017-08-18] MEDS: Ipratropium/Albuterol Neb 3 ML IH SCH ×3 (03:05→16:02)
[2017-08-18] MEDS: Azithromycin 500 MG in D5% in Water 250 ML IVPB SCH (05:03)
[2017-08-18] MEDS ORDERED: Isosorbide MONOnitrate (24 HR) 30 MG TAB.ER.24H PO SCH (09:00)
[2017-08-18] MEDS: predniSONE 20 MG TABLET PO SCH (09:59)
[2017-08-18] MEDS: Nicotine 14 MG PATCH.TD24 TD SCH (10:00)
[2017-08-18] MEDS: amLODIPine 5 MG TABLET PO SCH (10:00)
[2017-08-18] MEDS: Aspirin 81 MG TAB.CHEW PO SCH (10:00)
[2017-08-18 16:29] VITALS: BP 110/66
--- NOTE | 2017-08-18 16:45 | Discharge Summary ---
- NOTES TO OUTPATIENT PROVIDER Notes to Outpatient Provider: The patient was admitted with upper sternal chest pain. It was preceded by coughing for about 2 days duration. The pain was worse with deep breathing. It nearly subsided during this short hospitalization. His cough is very mild at this point of time. Cardiology was consulted. The patient had normal troponin on 2 occasions. His EKGs were normal, too. The patient had cardiac catheterization in 2017. It showed mild/ moderate coronary artery disease. The residential insurance inspector signed off. I am discharging this patient home. Date of Encounter: 08/18/17 Time of Encounter: 16:42 - Discharge Diagnosis (1) COPD exacerbation Priority: Primary Status: Acute (2) Chronic respiratory failure with hypoxia Priority: Secondary Status: Acute (3) Chest pain made worse by breathing Priority: Secondary Status: Acute (4) CAD (coronary artery disease) Priority: Secondary Status: Chronic Qualifiers: Coronary Disease-Associated Artery/Lesion type: [place] artery [place] vs. transplanted heart: [place] heart Associated angina: with unstable angina Qualified Code(s): I25.110 - Atherosclerotic heart disease of [place] coronary artery with unstable angina pectoris (5) Pulmonary nodule Priority: Secondary Status: Acute Hospital course: Mr. Do is a 62 year old male. The patient was admitted with upper sternal chest pain. It was preceded by coughing for about 2 days duration. The pain was worse with deep breathing. It nearly subsided during this short hospitalization. His cough is very mild at this point of time. Cardiology was consulted. The patient had normal troponin on 2 occasions. His EKGs were normal, too. The patient had cardiac catheterization in 2017. It showed mild/ moderate coronary artery disease. The residential insurance inspector signed off. I am discharging this patient home. Time spent discussing smoking cessation with patient: 3 to 10 minutes (35 MINUTES.) - Time Spent with Patient Total time spent providing and/or coordinating discharge services: Greater than 30 minutes (35 minutes.) - Discharge Medications Home Medications: Aspirin 81 mg PO DAILY tab.chew 12/17/16 [Rx] Clopidogrel [Plavix] 75 mg PO DAILY #30 tablet 12/17/16 [Rx] Metoprolol [Lopressor] 25 mg PO BID #60 tablet 12/17/16 [Rx] Atorvastatin [Lipitor] 80 mg PO HS 11/22/17 [History] raNITIdine HCl [Ranitidine HCl] 150 mg PO HS 01/29/17 [History] Acetaminophen [Tylenol] 650 mg PO Q6HR PRN tablet 01/30/17 [Rx] Nitroglycerin 0.4 mg SL Q5MIN PRN #30 tab.subl 01/30/17 [Rx] Amlodipine Besylate 2.5 mg PO DAILY 03/31/17 [History] Isosorbide MONOnitrate (24 HR) [Imdur] 60 mg PO DAILY #30 tab.er.24h 04/03/17 [ Rx] Albuterol Sulfate [Proair Hfa] 2 puff IH Q6H PRN 08/17/17 [History] Umeclidinium Brm/Vilanterol Tr [Anoro Ellipta 62.5-25 Mcg INH] 1 puff IH DAILY 08/17/17 [History] Allergies/Adverse Reactions: 3 Allergy/AdvReac Type Severity Reaction Status Date / Time Penicillins [PCN] Allergy Hives Verified 08/17/17 13:30 Date of admission: 08/17/17 02:09 Primary care physician: Constance Mckeon CNP Consults: 08/17/17 03:38 Consult to Cardiology [CONS] Routine Comment: Consulting Provider: Cardiology Diana Reason for Consult: S/P Stent and bal[place]on, chest pain consider UA Call Completed: No Discharging clinician: Adalberto Patel Anticipated date of discharge: 08/18/17 - Constitutional Vitals: Temp Pulse Resp BP Pulse Ox 97.9 F 75 18 110/66 96 08/18/17 15:00 08/18/17 15:00 08/18/17 16:02 08/18/17 15:00 08/18/17 16:02 General appearance: Present: mild distress, A&O X 3, answers questions appropriately - Respiratory Respiratory exam: Present: CTAB. Absent: accessory muscle use, rales, rhonchi, wheezes - Cardiovascular Cardiovascular exam: Present: RRR, +S1, +S2. Absent: diastolic murmur, gallop, rubs, systolic murmur - GI/Abdominal GI/Abdominal exam: Present: normal bowel sounds, soft, no peritoneal signs. Absent: distended, tenderness - Patient Status Disposition: Home, Self-Care Condition: Good Functional capacity at discharge: independent ambulation Overall status at discharge: patient is back to baseline - Discharge Instructions Instructions: How to Stop Smoking (DC), How to Stop Smoking (GEN), Cigarette Smoking and Your Health (GEN), Using Oxygen at Home (DC), Using Oxygen at Home ( GEN), Chronic Obstructive Pulmonary Disease (DC), Cigarette Smoking and Your Health, Cow Tester (GEN), How to Stop Smoking, Cow Tester (GEN) Follow Up With: Mala Tejada CNP [Advanced Practice Nurse] - 08/22/17 10:00 am - Diet and Activity Activity: resume usual activities as tolerated - VTE Reasons for not Prescribing Prophylaxis: Treatment not Indicated - Low risk for VTE Deep Vein Thrombosis/Pulmonary Embolism Present on Admission: No
== END 2017-08-18 20:12 | disposition home or self-care (01) ==
LOC: 2NENU → SUATTDRO 03:29
PROVIDERS: ADMIT Internal Medicine; ATTEND Internal Medicine

== ENCOUNTER 2018-08-04 11:10 | Observation (INO) ==
[2018-08-04] MEDS ORDERED: Naloxone 0.4 MG/ML INJ IVP PRN (16:57)
[2018-08-04] MEDS: Heparin 25,000 UNIT/250 ML D5W 25,000 UNIT/250 ML IV.SOLN IVC SCH (17:00)
--- NOTE | 2018-08-04 17:24 | Internal Med History&Physical ---
Date of Encounter: 08/04/18 Time of Encounter: 11:00 Internal Medicine - H&P: HPI Chief complaint: Chest pain Admitted From: Home Plans for Post Hospital Care: Home History of present illness: Patient is a 63-year-old male with past medical history significant for coronary arterial disease with STEMI in 2017 with MARYAN to mid LAD, [id number] smoker, hypertension, hyperlipidemia and COPD who presents from [place] [facility] for ACS rule out. Patient reports a one-month history of substernal chest pain which has been intermittent lasting for minutes with exertion making discomfort worse and nitroglycerin giving some relief in symptoms. Patient again experienced his symptoms today at work during exertion and states that as he walked home which made this chest discomfort worse. Patients made him come into the ER for evaluation. At [facility] his first set of troponins were negative and EKG reviewed by the ER physician at [facility] did not reveal any acute ST or T-wave changes. Past Med Surg Social Fam HX - Past Medical History Medical history: COPD, coronary artery disease, GERD, hyperlipidemia, hypertension, migraine, myocardial infarction Additional medical history: cardiac stent and [place] 12/24 Psychiatric history: anxiety, bipolar, depression - Past Surgical History Surgical History: no surgical history, other Additional surgical history: Stent Dec 2016; status post ear surgery to repair perforation on right side - Social History Smoking Status: Current every day smoker Smokeless Tobacco Status: No Alcohol use: none Drug use: none - Family History Mother Living Status: Hx Family Cancer: Yes (Unspecified) Father Living Status: Brother Living Status: Sister Living Status: Internal Medicine - H&P: Meds No Known Home Drugs 08/04/18 [History] Allergy/AdvReac Type Severity Reaction Status Date / Time Penicillins [PCN] Allergy Hives Verified 02/07/18 19:12 All Systems PM: A 10-system review of systems was performed and is negative for pertinent findings except as documented above in the HPI. - Constitutional Vitals: Temp Pulse Resp BP Pulse Ox 98.4 F 62 16 117/83 96 08/04/18 16:09 08/04/18 16:09 08/04/18 16:09 08/04/18 16:09 08/04/18 16:09 Exam: General appearance: Present: A&O X 3, no acute distress - Head Head exam: Present: normocephalic - Eye Eye exam: Present: normal appearance - ENT ENT exam: Present: mucous membranes moist - Respiratory Respiratory exam: Present: CTAB. Absent: accessory muscle use, rales, rhonchi, wheezes - Cardiovascular Cardiovascular exam: Present: RRR, +S1, +S2. Absent: diastolic murmur, gallop, rubs, systolic murmur - GI/Abdominal GI/Abdominal exam: Present: normal bowel sounds, soft, no peritoneal signs. Absent: distended, tenderness - Extremities Exam Extremities exam: Absent: pedal edema - Neurological Exam Neurological exam: Present: alert, oriented X3, no focal deficits. Absent: altered - Psychiatric Psychiatric exam: -normal mood Skin exam: -normal color - Assessment and Plan (1) Chest pain Current Visit: No Status: Acute Assessment and plan: Patient with history of coronary arterial disease presents with a one-month history of chest pain First set of troponins at [facility] negative Will trend serial troponins and monitor on telemetry Cardiology was consulted from [facility] with recommendations for heparin drip Will make patient nothing by mouth in case of left heart catheterization in the a.m. Qualifiers: Chest pain type: chest pain due to myocardial ischemia Ischemic chest pain type: stable angina pectoris Qualified Code(s): I20.8 - Other forms of angina pectoris (2) CAD (coronary artery disease) Current Visit: No Status: Chronic Assessment and plan: STEMI 12/2016 and MARYAN mid LAD. Abnormal stress test March 2017. Left heart catheterization March 2017: * Left Main Coronary Artery The LMCA is angiographically free of disease. * Left Anterior Descending The Mid LAD has patent stents present from a previous procedure. There is a 20-30% stenosis in the Mid LAD prior to stent. The lesion has a CARLOS flow of 3. There is a 8 mm long, 95% stenosis in the 1st Diagonal. The lesion has a CARLOS flow of 3. An intervention was performed on the 1st Diagonal with a final stenosis of 10-20%. There were no lesion complications. The final CARLOS flow was 3. * Circumflex The Circumflex has minimal disease The 1st Marginal has minimal disease * Right Coronary Artery There is a 50-60% stenosis in the Proximal RCA. The lesion has a CARLOS flow of 3. There is a 50% stenosis in the Mid RCA. The lesion has a CARLOS flow of 3. Qualifiers: Coronary Disease-Associated Artery/Lesion type: [place] artery [place] vs. transplanted heart: [place] heart Associated angina: with stable angina Qualified Code(s): I25.118 - Atherosclerotic heart disease of [place] coronary artery with other forms of angina pectoris (3) HTN (hypertension) Current Visit: Yes Status: Acute Assessment and plan: Continue home medications Qualifiers: Hypertension type: unspecified Qualified Code(s): I10 - Essential (primary) hypertension (4) HLD (hyperlipidemia) Current Visit: Yes Status: Acute Assessment and plan: Continue home medications Qualifiers: Hyperlipidemia type: unspecified Qualified Code(s): E78.5 - Hyperlipidemia, unspecified (5) COPD (chronic obstructive pulmonary disease) Current Visit: Yes Status: Acute Assessment and plan: Continue home medications Qualifiers: Emphysema type: unspecified Qualified Code(s): J43.9 - Emphysema, unspecified (6) Nicotine abuse Current Visit: No Status: Chronic Assessment and plan: Patient is 100 pack year smoker (7) DVT prophylaxis Current Visit: No Status: Acute Assessment and plan: On heparin drip as above - Time Spent With Patient Total time spent is greater than 50% in coordination of care (as documented) at patient's floor/unit and/or counseling patient:
[2018-08-04] MEDS ORDERED: Nitroglycerin 25 MG/250 ML INFUS..BTL IVC SCH (17:30)
[2018-08-04] MEDS ORDERED: *HR* Heparin 5,000 UNIT/ML VIAL IVP PRN ×2 (17:42)
[2018-08-04] MEDS ORDERED: *HR* Heparin 5,000 UNIT/ML VIAL IVP ONE (17:42)
[2018-08-04 19:23] LABS: Hematocrit 45.2 % (37.5-50.1); Hemoglobin 15.5 g/dL (12.9-16.9); Mean Corpuscular HGB Conc 34.3 g/dL (31.6-35.5); Mean Corpuscular Hemoglobin 31.5 pg (28.0-33.3); Mean Corpuscular Volume 91.9 fL (83.0-100.0); Mean Platelet Volume 10.7 fL (9.4-12.4); Platelet Count 202 K/mcL (140-400); Red Blood Count 4.92 M/mcL (4.19-5.50)
[2018-08-04 19:32] LABS: Prothrombin Time 11.4 Seconds (9.4-12.1)
[2018-08-05] MEDS: Acetaminophen 325 MG TABLET PO PRN ×2 (04:18→10:38)
[2018-08-05 08:14] LABS: Basophils % 0.4 %; Eosinophils # 0.2 K/mcL (0.0-0.6); Eosinophils % 1.7 %; Hematocrit 46.8 % (37.5-50.1); Hemoglobin 15.9 g/dL (12.9-16.9); Immature Granulocytes % 0.6 % (0-4); Lymphocytes % 29.9 %; Mean Corpuscular Hemoglobin 31.4 pg (28.0-33.3); Mean Corpuscular Volume 92.3 fL (83.0-100.0); Mean Platelet Volume 10.9 fL (9.4-12.4); Monocytes # 0.9 K/mcL (0.0-1.3); Monocytes % 9.3 %; Neutrophils # 5.9 K/mcL (1.6-8.9); Platelet Count 192 K/mcL (140-400); Red Blood Count 5.07 M/mcL (4.19-5.50); Red Cell Distribution Width 13.2 % (11.5-14.5); Segmented Neutrophils % 58.1 %
[2018-08-05 08:53] LABS: BUN/Creatinine Ratio 17 (6-26); Blood Urea Nitrogen 15 mg/dL (8-23); Carbon Dioxide 20 mEq/L (23-29); Chloride 107 mEq/L (98-107); Glucose 108 mg/dL (70-105); Osmolality,Calculated 285 (280-300); Potassium 4.1 mEq/L (3.5-5.1); Sodium 137 mEq/L (136-145); eGFR For Non-African Americans > 60 (> 60)
[2018-08-05] MEDS: Heparin 25,000 UNIT/250 ML D5W 25,000 UNIT/250 ML IV.SOLN IVC SCH (09:47)
--- NOTE | 2018-08-05 10:18 | Cardiology Consult Note ---
Date of Encounter: 08/05/18 Time of Encounter: 09:30 Assessment and Plan (1) Unstable angina Current Visit: Yes Status: Acute Admitted with symptoms concerning for unstable angina. Troponin negative x3; ECG en route to [facility] demonstrated inferior ECG changes. Pain free upon exam, on heparin and ntg gtt. Recent abnormal stress test (2017)--apical/inferior defect being medically managed. Most recent [facility] 03/2017--s/p PTCA diagonal, mild ISR of mLAD; and moderate CAD in RCA. A/R/B of [facility] with possible PCI discussed, he is agreeable to proceed. Resume home aspirin and statin; will resume home BB at decreased dose d/t SB. Will continue to follow. (2) Tobacco abuse Current Visit: Yes Status: Acute Smoking cessation counseling provided. (3) CAD (coronary artery disease) Current Visit: No Status: Chronic Hx of CAD s/p PCI to LAD in 2016; PTCA of diagonal in 2017. Plan as above. Qualifiers: Coronary Disease-Associated Artery/Lesion type: [place] artery [place] vs. transplanted heart: [place] heart Associated angina: with unstable angina Qualified Code(s): I25.110 - Atherosclerotic heart disease of [place] coronary artery with unstable angina pectoris Discussion w patient/family: The assessment and plan as outlined above was discussed with the patient and/or family members who expressed understanding and agreement. All questions were answered. Thank you for involving us in the care of your patient. Please call with any questions. The patient will be discussed and reviewed with Dr. Crowe; changes to be made accordingly. History of Present Illness Consult date: 08/05/18 Requesting physician: Chandra Corbett Consult reason: Unstable angina Chief complaint: Chest pain History of present illness: Mr. 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 Chest pain described as heaviness/pressure that radia susi across chest and lasted for nearly an hour. Reports symptoms similar as prior [place] presentation, however worse in quality. Reports walked home and then went to the ED for further evaluation. Given symptoms concerning for unstable angina, he was transferred to [facility]. Recent CV testing: Stress Test 01/28/2018: Perfusion imaging was positive for ischemia and infarct. There is a medium sized mixed perfusion defect which is moderate in intensity in the apical inferior segment with evidence of candelaria-infarct ischemia There is a medium sized fixed perfusion defect which is moderate to severe in i ntensity in the apical septal segment, consistent with infarct Gated EF = 59%. Past Med Surg Social Fam HX - Past Medical History Attestation: Yes The following information was validated with the patient. Source: patient Medical history: COPD, coronary artery disease, GERD, hyperlipidemia, hypertension, migraine, myocardial infarction Additional medical history: cardiac stent and [place] 12/24 Psychiatric history: anxiety, bipolar, depression - Past Surgical History Surgical History: no surgical history, other Additional surgical history: Stent Dec 2016; status post ear surgery to repair perforation on right side - Social History Smoking Status: Current every day smoker Smokeless Tobacco Status: No Alcohol use: none Drug use: none - Family History Mother Living Status: Hx Family Cancer: Yes (Unspecified) Father Living Status: Brother Living Status: Sister Living Status: Medications and Allergies No Known Home Drugs 08/04/18 [History] Allergy/AdvReac Type Severity Reaction Status Date / Time Penicillins [PCN] Allergy Hives Verified 02/07/18 19:12 All Systems Review: The remainder of the systems were reviewed and are negative - Cardiovascular Cardiovascular: as per HPI Physical Examination Vital Signs, Last 4 Hours Temp Pulse Resp BP Pulse Ox 08/05/18 08:53 55 18 96 08/05/18 08:48 55 08/05/18 07:19 98.1 F 49 16 113/85 94 General: Conversant, No Apparent Distress HEENT: Atraumatic, Normocephaly, Mucus Membranes Moist Neck: No JVD, Normal carotid pulses Cardiac: Reg Rate and Rhythm, Normal S1 and S2, No Murmur Lungs: Normal Breath Sounds, No Wheeze, Rales, Rhonchi Neuro: Alert and responsive, No focal deficits noted Abdomen: Soft, Non-Tender Skin: No rashes noted on visualized skin Musculoskeletal: No Chest Wall Tenderness Extremities: No Clubbing, No Cyanosis, No Edema, Normal Pulses Results 08/05/18 07:45 08/05/18 07:45 Lab Results 08/04/18 08/04/18 08/04/18 17:24 19:06 19:06 WBC 8.2 Hgb 15.5 Hct 45.2 Plt Count 202 INR 1.0 Sodium Potassium Chloride Carbon Dioxide BUN Creatinine Glucose Calcium Troponin I < 0.03 08/05/18 08/05/18 08/05/18 01:22 07:45 07:45 WBC 10.1 Hgb 15.9 Hct 46.8 Plt Count 192 INR Sodium 137 Potassium 4.1 Chloride 107 Carbon Dioxide 20 L BUN 15 Creatinine 0.87 Glucose 108 H Calcium 9.0 Troponin I < 0.03 08/05/18 07:45 WBC Hgb Hct Plt Count INR Sodium Potassium Chloride Carbon Dioxide BUN Creatinine Glucose Calcium Troponin I < 0.03 Active Medications Acetaminophen (Tylenol) 650 mg PO Q6H PRN PRN Reason: Headache Stop: 02/04/19 04:06 Last Admin: 08/05/18 04:18 Dose: 650 mg Documented by: Aspirin (Aspirin Ec) 81 mg PO DAILY SONAL Stop: 02/04/19 10:16 Atorvastatin Calcium (Lipitor) 80 mg PO HS SONAL Stop: 02/04/19 21:01 Heparin Sodium (Porcine) (Heparin) 4,000 unit IVP Q6HR PRN PRN Reason: SEE COMMENTS Stop: 02/03/19 17:43 Heparin Sodium (Porcine) (Heparin) 2,000 unit IVP Q6H PRN PRN Reason: SEE COMMENTS Stop: 02/03/19 17:43 Last Admin: 08/04/18 22:12 Dose: 2,000 unit Documented by: Nitroglycerin (Nitroglycerin Premix 25 Mg/250 Ml) 25 mg in 250 mls @ 3 mls/hr IVC .Q24H SONAL; Protocol Stop: 02/03/19 17:31 Last Titration: 08/05/18 05:30 Dose: 0 mcg/min, 0 mls/hr Documented by: Heparin Sodium/Dextrose (Heparin 25,000 Unit/250 Ml D5w) 25,000 unit in 250 mls @ 9.948 mls/hr IVC .Q24H SONAL; Protocol Stop: 02/03/19 17:46 Last Admin: 08/05/18 09:47 Dose: 13.99 unit/kg/hr, 11.6 mls/hr Documented by: Metoprolol Tartrate (Lopressor) 12.5 mg PO BID SONAL Stop: 02/04/19 21:01 Naloxone HCl (Narcan) 0.4 mg IVP Q2MPRN PRN PRN Reason: SEE COMMENTS Stop: 02/03/19 16:58 - Imaging and Cardiology Stress Test: report reviewed Echo: report reviewed Cardiac cath: report reviewed Other Results: 12 hour tele: avg HR=57 SB/SR - EKG Interpretation EKG results cardiology: personally reviewed Consult Discharge Plan - Plan Referrals: Constance Mckeon, BUS DRIVER/MONITOR [Primary Care Provider] -
--- NOTE | 2018-08-05 11:38 | Pre-Sedation Evaluation ---
Pre-sedation evaluation - Pre-sedation checklist Date of procedure: 08/05/18 Procedure: Heart Cath Recent Vitals: Last Vital Signs Temp 98.1 F 08/05/18 07:19 Pulse 55 08/05/18 08:53 Resp 18 08/05/18 08:53 BP 113/85 08/05/18 07:19 Pulse Ox 96 08/05/18 08:53 H&P (including ROS) documented in medical record: Yes Previous reaction to sedatives/anesthetics: No Dietary Status: NPO after Midnight Dentition: No loose teeth or bridges ASA Classification *see protocol: CLASS II-Mild systemic disease Cardiac Registry (Cardio Only) - Functional Capacity Functional Capacity: >=4 METS without symptoms - Clincal Frailty Scale Clinical Frailty Scale: Managing Well
[2018-08-05] MEDS ORDERED: Nitroglycerin 1,000 MCG/10 ML VIAL IV ONE (11:41)
[2018-08-05] MEDS ORDERED: 0.9 % Sodium Chloride 1,000 ML ONE ×2 (11:41)
[2018-08-05] MEDS ORDERED: ISOVUE-370 200 ML INFUS..BTL ONE ×2 (11:41→12:26)
[2018-08-05] MEDS ORDERED: Heparin 1,000 UNITS/500 mL 500 ML ONE (11:41)
[2018-08-05] MEDS ORDERED: *HR* Heparin 10,000 UNIT/10 ML VIAL ONE (11:41)
[2018-08-05] MEDS ORDERED: *HR* Midazolam HCl 2 MG/2 ML VIAL ONE (11:53)
[2018-08-05] MEDS ORDERED: *HR* FentaNYL (PF) 100 MCG/2 ML VIAL ONE (11:53)
[2018-08-05] MEDS ORDERED: Tirofiban 12.5 MG/250ML 12.5 MG/250 ML BAG ONE (12:23)
[2018-08-05] MEDS ORDERED: *HR* Ticagrelor 90 MG TABLET ONE (12:59)
[2018-08-05] MEDS ORDERED: Tirofiban 12.5 MG/250ML 12.5 MG/250 ML BAG IVC SCH (13:15)
--- NOTE | 2018-08-05 14:59 | Internal Med Progress Note ---
Hospitalist Progress Note - Encounter Date of Encounter: 08/05/18 Time of Encounter: 10:50 - Subjective Interval History: Patient is lying down in bed. Currently chest pain-free. Denies any new complaints at this time. Is scheduled to undergo left catheterization later today. - Exam Vitals: Temp Pulse Resp BP Pulse Ox 98.0 F 74 18 112/81 99 08/05/18 13:24 08/05/18 13:24 08/05/18 13:24 08/05/18 13:24 08/05/18 13:24 Exam: General: Patient is alert, no acute distress, oriented x 3 ENT: Mucous membranes moist Respiratory: Prolonged expiratory phase. Cardiovascular: Regular rate and rhythm. s1 and s2 normal No clicks, rubs, gallops, or murmurs. No pedal edema Abdomen: Abdomen is soft, nontender. Bowel sounds are present Musculoskeletal: Spontaneously moving all extremities Skin: warm, dry, intact. Neuro: Alert oriented x 3 normal cranial nerves, no focal deficits - Assessment and Plan (1) Chest pain Current Visit: Yes Status: Acute (2) Nicotine abuse Current Visit: Yes Status: Chronic (3) CAD (coronary artery disease) Current Visit: Yes Status: Chronic (4) COPD (chronic obstructive pulmonary disease) Current Visit: Yes Status: Acute (5) HTN (hypertension) Current Visit: Yes Status: Chronic (6) HLD (hyperlipidemia) Current Visit: Yes Status: Acute (7) DVT prophylaxis Current Visit: Yes Status: Acute DVT Prophylaxis: Currently on IV heparin - Summary of Assessment and Plan Summary of Assessment and Plan: Atypical chest pain: Brought on by exertion. Relieved with nitroglycerin. Evaluated by cardiology and recommended left heart catheterization. Will follow results. Currently on IV heparin and nitroglycerin drip. Will continue. Essential hypertension: Blood pressure is well controlled at this time. Started on Lopressor by cardiology. High risk for complications due to use of IV heparin and nitroglycerin drips. - Time Spent with Patient Total time spent is greater than 50% in coordination of care (as documented) at patient's floor/unit and/or counseling patient: Internal Medicine: Result - Labs CBC & Chem 7: 08/05/18 07:45 08/05/18 07:45 Labs: Short CBC 08/04/18 08/05/18 Range/Units 19:06 07:45 WBC 8.2 10.1 (4.3-11.1) K/mcL Hgb 15.5 15.9 (12.9-16.9) g/dL Hct 45.2 46.8 (37.5-50.1) % Plt Count 202 192 (140-400) K/mcL Neutrophils # 5.9 (1.6-8.9) K/mcL BMP 08/05/18 07:45 Sodium 137 Potassium 4.1 Chloride 107 Carbon Dioxide 20 L BUN 15 Creatinine 0.87 Glucose 108 H Calcium 9.0 Cardiac Enzymes 08/04/18 08/05/18 08/05/18 Range/Units 17:24 01:22 07:45 Troponin I < 0.03 < 0.03 < 0.03 (< 0.04) ng/mL - ABG Interpretation ABG results: PT/INR, D-dimer PT 11.4 Seconds (9.4-12.1) 08/04/18 19:06 Consult Discharge Plan - Plan Referrals: Constance Mckeon, LIME TRIMMER [Primary Care Provider] - 08/17/18 2:00 pm (1) Chest pain Qualifiers: Chest pain type: chest pain due to myocardial ischemia Ischemic chest pain type: stable angina pectoris Qualified Code(s): I20.8 - Other forms of angina pectoris (3) CAD (coronary artery disease) Qualifiers: Coronary Disease-Associated Artery/Lesion type: [place] artery [place] vs. [place] heart: [place] heart Associated angina: with unstable angina Qualified Code(s): I25.110 - Atherosclerotic heart disease of [place] coronary artery with unstable angina pectoris (4) COPD (chronic obstructive pulmonary disease) Qualifiers: Emphysema type: unspecified Qualified Code(s): J43.9 - Emphysema, unspecified (5) HTN (hypertension) Qualifiers: Hypertension type: essential hypertension Qualified Code(s): I10 - Essential (primary) hypertension (6) HLD (hyperlipidemia) Qualifiers: Hyperlipidemia type: unspecified Qualified Code(s): E78.5 - Hyperlipidemia, unspecified
[2018-08-05] MEDS: Aspirin Enteric Coated 81 MG Tablet PO SCH (15:34)
[2018-08-05] MEDS ORDERED: 0.9 % Sodium Chloride 250 ML ONE (18:06)
[2018-08-05] MEDS: *HR* Ticagrelor 90 MG TABLET PO SCH (21:30)
[2018-08-06] MEDS: Aspirin Enteric Coated 81 MG Tablet PO SCH (08:41)
[2018-08-06] MEDS: *HR* Ticagrelor 90 MG TABLET PO SCH (08:41)
[2018-08-06] MEDS ORDERED: Aspirin 81 MG TAB.CHEW PO SCH (09:00)
--- NOTE | 2018-08-06 09:17 | Electrocardiograph Report ---
[address] [address] Test Date: 2018-08-05 Pat Name: Christopher Do Department: 110 Room: 2N13 Gender: M Agent Contract Clerk: : [id number] Requested By: Shamika Prieto Order Number: [id number] Reading MD: Preston Vallecillo Measurements Intervals [place] Rate: 54 P: 54 MT: 191 QRS: -24 QRSD: 86 T: 10 QT: 387 QTc: 373 Interpretive Statements SINUS BRADYCARDIA BORDERLINE LEFT AXIS DEVIATION LOW QRS VOLTAGE IN PRECORDIAL LEADS Electronically Signed On 08-06-2018 9:16:01 EDT by Preston Vallecillo
[2018-08-06 09:43] LABS: Basophils # 0.1 K/mcL (0.0-0.2); Basophils % 0.6 %; Eosinophils # 0.3 K/mcL (0.0-0.6); Eosinophils % 2.7 %; Hematocrit 47.7 % (37.5-50.1); Immature Granulocytes % 0.6 % (0-4); Lymphocytes # 1.8 K/mcL (0.6-4.6); Lymphocytes % 18.1 %; Mean Corpuscular HGB Conc 33.5 g/dL (31.6-35.5); Mean Corpuscular Hemoglobin 31.4 pg (28.0-33.3); Mean Corpuscular Volume 93.5 fL (83.0-100.0); Mean Platelet Volume 10.8 fL (9.4-12.4); Monocytes # 0.7 K/mcL (0.0-1.3); Monocytes % 6.7 %; Neutrophils # 7.2 K/mcL (1.6-8.9); Platelet Count 192 K/mcL (140-400); Red Cell Distribution Width 13.2 % (11.5-14.5); Segmented Neutrophils % 71.3 %
[2018-08-06 10:01] LABS: BUN/Creatinine Ratio 17 (6-26); Blood Urea Nitrogen 16 mg/dL (8-23); Carbon Dioxide 23 mEq/L (23-29); Chloride 108 mEq/L (98-107); Potassium 4.2 mEq/L (3.5-5.1); Sodium 136 mEq/L (136-145)
[2018-08-06 10:02] LABS: Calcium 9.1 mg/dL (8.6-10.3); Glucose 144 mg/dL (70-105); Osmolality,Calculated 286 (280-300); eGFR For Non-African Americans > 60 (> 60)
--- NOTE | 2018-08-06 10:23 | Cardiology Progress Note ---
Date of Encounter: 08/06/18 Time of Encounter: 09:30 Assessment and Plan (1) Unstable angina Current Visit: Yes Status: Acute Per cardiology: -Admitted with symptoms concerning for unstable angina. -Troponin negative x3; ECG en route to [facility] demonstrated inferior ECG changes. -Recent abnormal stress test (2017)--apical/inferior defect being medically managed. -Most recent [facility] 03/2017--s/p PTCA diagonal, mild ISR of mLAD; and moderate CAD in RCA. -s/p LHC yesterday. Preliminary report reviewed with MARYAN to LAD and RCA. -Currently chest pain free. -On asa, brilinta, statin, BB. Edcuated on dual anti-platelet therapy uninterrupted for at least one year, states understanding. Brilinta assistance card given to patient. -Right groin access site without ecchymosis or hematoma. Right groin access site management reviewed with patient, states understanding. -TTE with LVEF preserved, no wall motion abnormalities. -Continue current medical therapy. -Cardiology will sign off, will arrange outpatient follow up. (2) CAD (coronary artery disease) Current Visit: Yes Status: Chronic Per cardiology: -Hx of CAD s/p PCI to LAD in 2016; PTCA of diagonal in 2017. -Plan as above. Qualifiers: Coronary Disease-Associated Artery/Lesion type: [place] artery [place] vs. transplanted heart: [place] heart Associated angina: with unstable angina Qualified Code(s): I25.110 - Atherosclerotic heart disease of [place] coronary artery with unstable angina pectoris (3) Tobacco abuse Current Visit: Yes Status: Acute Per cardiology: -Smoking cessation counseling provided. Discussion w patient/family: The assessment and plan as outlined above was discussed with the patient and/or family members who expressed understanding and agreement. All questions were answered. Thank you for involving us in the care of your patient. Please call with any questions. Discussed and reviewed with . Subjective Principal diagnosis: Unstable angina Interval history: Patient denies chest pain. States he feels great today. Denies complaints. Objective Vital Signs, Last 4 Hours Temp Pulse Resp BP Pulse Ox 08/06/18 08:47 62 08/06/18 08:46 57 18 96 08/06/18 07:36 98.6 F 55 18 113/81 97 General: Conversant, No Apparent Distress HEENT: Atraumatic, Normocephaly, Mucus Membranes Moist Neck: No JVD, Normal carotid pulses Cardiac: Reg Rate and Rhythm, Normal S1 and S2, No Murmur Lungs: Normal Breath Sounds, No Wheeze, Rales, Rhonchi Neuro: Alert and responsive, No focal deficits noted Abdomen: Soft, Non-Tender Skin: No rashes noted on visualized skin, Other (Right groin access site without ecchymosis or hematoma. ) Musculoskeletal: No Chest Wall Tenderness Extremities: No Clubbing, No Cyanosis, No Edema, Normal Pulses Results 08/06/18 09:23 08/06/18 09:23 Lab Results Impressions Echocardiogram 08/05/18 10:09 Impressions: LVEF 60-65%. Normal LV chamber size and function. Mild concentric left ventricular hypertrophy. Normal right ventricular structure and function. No evidence of pulmonary hypertension. No significant valvular dysfunction Left Ventricular Wall Motion: Rest Echo Findings All wall segments showed normal motion. Findings: Study Quality * Technically adequate exam. ECG Findings * Sinus rhythm with BBB. Left Ventricle * LVEF 60-65%. * Normal LV chamber size and function. * Normal left ventricular diastolic function. * Mild concentric left ventricular hypertrophy. Right Ventricle * Normal right ventricular structure and function. Left Atrium * Normal left atrial size. Right Atrium * Normal right atrial size. Aortic Valve * Trileaflet aortic valve. * Normal aortic valve structure. * No aortic regurgitation. * No aortic stenosis. Mitral Valve * Focal echogenicity on the anterior mitral valve leaflet. * No mitral regurgitation. * No mitral stenosis. Tricuspid Valve * Normal tricuspid valve structure. * No tricuspid stenosis. * Trace tricuspid regurgitation. * No evidence of pulmonary hypertension. Pulmonic Valve * No pulmonic regurgitation. Aorta * Normally sized aortic root. Pericardium * The pericardium appears normal. IVC * Normal IVC dimensions and inspiratory collapse. Pulmonary Artery * Normal visualized portions of the main pulmonary artery. Active Medications Acetaminophen (Tylenol) 650 mg PO Q6H PRN PRN Reason: Headache Stop: 02/04/19 04:06 Last Admin: 08/05/18 10:38 Dose: 650 mg Documented by: Aspirin (Aspirin Ec) 81 mg PO DAILY SONAL Stop: 02/04/19 10:16 Last Admin: 08/06/18 08:41 Dose: 81 mg Documented by: Atorvastatin Calcium (Lipitor) 80 mg PO HS SONAL Stop: 02/04/19 21:01 Last Admin: 08/05/18 21:30 Dose: 80 mg Documented by: Heparin Sodium (Porcine) (Heparin) 4,000 unit IVP Q6HR PRN PRN Reason: SEE COMMENTS Stop: 02/03/19 17:43 Heparin Sodium (Porcine) (Heparin) 2,000 unit IVP Q6H PRN PRN Reason: SEE COMMENTS Stop: 02/03/19 17:43 Last Admin: 08/04/18 22:12 Dose: 2,000 unit Documented by: Nitroglycerin (Nitroglycerin Premix 25 Mg/250 Ml) 25 mg in 250 mls @ 3 mls/hr IVC .Q24H SONAL; Protocol Stop: 02/03/19 17:31 Last Titration: 08/05/18 05:30 Dose: 0 mcg/min, 0 mls/hr Documented by: Heparin Sodium/Dextrose (Heparin 25,000 Unit/250 Ml D5w) 25,000 unit in 250 mls @ 9.948 mls/hr IVC .Q24H SONAL; Protocol Stop: 02/03/19 17:46 Last Admin: 08/05/18 09:47 Dose: 13.99 unit/kg/hr, 11.6 mls/hr Documented by: Metoprolol Tartrate (Lopressor) 12.5 mg PO BID [facility] Stop: 02/04/19 21:01 Last Admin: 08/06/18 08:41 Dose: 12.5 mg Documented by: Naloxone HCl (Narcan) 0.4 mg IVP Q2MPRN PRN PRN Reason: SEE COMMENTS Stop: 02/03/19 16:58 Ticagrelor (Brilinta) 90 mg PO BID [facility] Stop: 02/04/19 21:01 Last Admin: 08/06/18 08:41 Dose: 90 mg Documented by: Laboratory Tests 08/06/18 08/06/18 09:23 09:23 Hgb 16.0 Creatinine 0.94 - Imaging and Cardiology Chest Xray: report reviewed Echo: report reviewed Cardiac cath: report reviewed - EKG Interpretation EKG results cardiology: other (Telemetry reviewed with average HR previous 12 hours noted to be 54, SB. PVCs, PACs noted.) Consult Discharge Plan - Plan Referrals: Constance Mckeon, SENIOR FINANCIAL REPORTING ACCOUNTANT [Primary Care Provider] - 08/17/18 2:00 pm
[2018-08-06 10:58] VITALS: BP 123/85
--- NOTE | 2018-08-06 11:53 | Discharge Summary ---
- NOTES TO OUTPATIENT PROVIDER Notes to Outpatient Provider: Patient with a history of coronary artery disease, COPD, hypertension and hyperlipidemia with a prior stent placement was hospitalized here for chest pain. Was evaluated by cardiology and recommended left heart catheterization given his typical symptoms. His troponins were negative. Patient underwent left heart catheterization yesterday and was found to have severe 2 vessel disease and underwent drug-eluting stent placement to mid LAD and mid RCA. Since then patient has been chest pain-free. He is clinically stable to be discharged today and will follow up with cardiology as outpatient. Patient will continue to take it dual antiplatelet therapy uninterrupted for at least 1 year. Currently patient has been placed on aspirin, Brilinta. He will follow up with cardiology and cardiac rehabilitation for further management. Date of Encounter: 08/06/18 Time of Encounter: 09:20 - Discharge Diagnosis (1) Chest pain Priority: Primary Status: Acute Qualifiers: Chest pain type: chest pain due to myocardial ischemia Ischemic chest pain type: stable angina pectoris Qualified Code(s): I20.8 - Other forms of angina pectoris (2) Nicotine abuse Priority: Secondary Status: Chronic (3) CAD (coronary artery disease) Priority: Secondary Status: Chronic Qualifiers: Coronary Disease-Associated Artery/Lesion type: [place] artery [place] vs. transplanted heart: [place] heart Associated angina: with unstable angina Qu alified Code(s): I25.110 - Atherosclerotic heart disease of [place] coronary artery with unstable angina pectoris (4) COPD (chronic obstructive pulmonary disease) Priority: Secondary Status: Acute Qualifiers: Emphysema type: unspecified Qualified Code(s): J43.9 - Emphysema, unspecified (5) HTN (hypertension) Priority: Secondary Status: Chronic Qualifiers: Hypertension type: essential hypertension Qualified Code(s): I10 - Essential (primary) hypertension (6) HLD (hyperlipidemia) Priority: Secondary Status: Acute Qualifiers: Hyperlipidemia type: unspecified Qualified Code(s): E78.5 - Hyperlipidemia, unspecified (7) DVT prophylaxis Priority: Secondary Status: Acute Hospital course: Mr. Do is a 63 year old male Patient with a history of coronary artery disease, COPD, hypertension and hyperlipidemia with a prior stent placement was hospitalized here for chest pain. Was evaluated by cardiology and recommended left heart catheterization given his typical symptoms. His troponins were negative. Patient underwent left heart catheterization yesterday and was found to have severe 2 vessel disease and underwent drug-eluting stent placement to mid LAD and mid RCA. Since then patient has been chest pain-free. He is clinically stable to be discharged today and will follow up with cardiology as outpatient. Patient will continue to take it dual antiplatelet therapy uninterrupted for at least 1 year. Currently patient has been placed on aspirin, Brilinta. He will follow up with cardiology and cardiac rehabilitation for further management. Discharge discussed with: patient, nurse - Time Spent with Patient Total time spent providing and/or coordinating discharge services: Time spent: Less than 30 minutes (25 min) - Discharge Medications Prescriptions: New Ticagrelor [Brilinta] 90 mg PO BID #60 tablet Metoprolol [Lopressor] 12.5 mg PO BID #60 tablet Continued Amlodipine Besylate 5 mg PO DAILY Aspirin [Lo-Dose Aspirin EC] 81 mg PO DAILY Atorvastatin Calcium [Lipitor] 80 mg PO HS Isosorbide MONOnitrate (24 HR) [Imdur] 60 mg PO QAM Loratadine [Claritin] 10 mg PO DAILY Montelukast [Singulair] 10 mg PO QPM Multivitamin [Multivitamins] 1 cap PO DAILY Nitroglycerin [Nitrostat] 0.4 mg SL Q5MIN PRN MDD X3 DOSES CALL 911 PRN Reason: Chest Pain Ranitidine HCl [Acid Gearman] 150 mg PO DAILY Umeclidinium Brm/Vilanterol Tr [Anoro Ellipta 62.5-25 Mcg INH] 1 puff PO DAILY Discontinued Clopidogrel [Plavix] 75 mg PO DAILY Home Medications: Amlodipine Besylate 5 mg PO DAILY 08/05/18 [History] Aspirin [Lo-Dose Aspirin EC] 81 mg PO DAILY 08/05/18 [History] Atorvastatin Calcium [Lipitor] 80 mg PO HS 08/05/18 [History] Isosorbide MONOnitrate (24 HR) [Imdur] 60 mg PO QAM 08/05/18 [History] Loratadine [Claritin] 10 mg PO DAILY 08/05/18 [History] Montelukast [Singulair] 10 mg PO QPM 08/05/18 [History] Multivitamin [Multivitamins] 1 cap PO DAILY 08/05/18 [History] Nitroglycerin [Nitrostat] 0.4 mg SL Q5MIN PRN MDD X3 DOSES CALL 911 08/05/18 [History] Ranitidine HCl [Acid Gearman] 150 mg PO DAILY 08/05/18 [History] Umeclidinium Brm/Vilanterol Tr [Anoro Ellipta 62.5-25 Mcg INH] 1 puff PO DAILY 08/05/18 [History] Metoprolol [Lopressor] 12.5 mg PO BID #60 tablet 08/06/18 [Rx] Ticagrelor [Brilinta] 90 mg PO BID #60 tablet 08/06/18 [Rx] Allergies/Adverse Reactions: Allergy/AdvReac Type Severity Reaction Status Date / Time Penicillins [PCN] Allergy Hives Verified 02/07/18 19:12 Date of admission: 08/04/18 13:47 Primary care physician: Constance Mckeon CNP Consults: 08/04/18 17:03 Consult to Cardiology [CONS] Routine Comment: Consulting Provider: Cardiology Diana Reason for Consult: ACS rule out Call Completed: No 08/05/18 13:14 Consult to Cardiac Rehabilitation-Phase1 [CONS] Routine Comment: Reason for Consult: post op PCI Call Completed: Yes Discharging clinician: Lydia Hill Anticipated date of discharge: 08/06/18 - Constitutional Vitals: Temp Pulse Resp BP Pulse Ox 98.2 F 57 18 123/85 95 08/06/18 10:58 08/06/18 10:58 08/06/18 10:58 08/06/18 10:58 08/06/18 10:58 General appearance: Present: cooperative, A&O X 3, answers questions appropriately Exam: General: Patient is alert, no acute distress, oriented x 3 ENT: Mucous membranes moist Respiratory: Prolonged expiratory phase Cardiovascular: Regular rate and rhythm. s1 and s2 normal No clicks, rubs, gallops, or murmurs. No pedal edema Abdomen: Abdomen is soft, nontender. Bowel sounds are present Musculoskeletal: Spontaneously moving all extremities Skin: warm, dry, intact. Neuro: Alert oriented x 3 normal cranial nerves, no focal deficits - Patient Status Disposition: Home, Self-Care Condition: Good Functional capacity at discharge: independent ambulation Overall status at discharge: patient is progressing back to baseline - Discharge Instructions Instructions: Chest Pain (DC) Follow Up With: Constance Mckeon CNP [Primary Care Provider] - 08/17/18 2:00 pm Shamika Prieto [Partnered Physician] - (in 1 week) - Diet and Activity Activity: as per the cardiac rehab, increase activity as tolerated Diet: low fat, low cholesterol, low salt diet
--- NOTE | 2018-08-06 12:27 | Electrocardiograph Report ---
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
[2018-08-06] MEDS ORDERED: *HR* Ticagrelor 90 MG TABLET PO SCH (21:00)
== END 2018-08-06 14:52 | disposition home or self-care (01) ==
LOC: 2NNU → SUATTDRO 13:47
PROVIDERS: ADMIT Internal Medicine Nephrology; ATTEND Internal Medicine

== ENCOUNTER 2019-02-11 18:05 | Observation (INO) ==
[2019-02-11] MEDS ORDERED: Nitroglycerin 0.4 MG TAB.SUBL SL PRN (23:46)
[2019-02-11] MEDS ORDERED: Naloxone 0.4 MG/ML INJ IVP PRN (23:54)
[2019-02-11] MEDS ORDERED: Ondansetron 4 MG/2 ML VIAL IVP PRN (23:54)
[2019-02-11] MEDS ORDERED: Acetaminophen 325 MG TABLET PO PRN (23:54)
[2019-02-12 00:51] LABS: Prothrombin Time 11.8 Seconds (9.4-12.1)
[2019-02-12 00:52] LABS: Hematocrit 43.1 % (37.5-50.1); Hemoglobin 14.9 g/dL (12.9-16.9); Mean Corpuscular HGB Conc 34.6 g/dL (31.6-35.5); Mean Corpuscular Hemoglobin 31.6 pg (28.0-33.3); Mean Corpuscular Volume 91.5 fL (83.0-100.0); Mean Platelet Volume 10.7 fL (9.4-12.4); Platelet Count 203 K/mcL (140-400); Red Blood Count 4.71 M/mcL (4.19-5.50)
[2019-02-12 00:54] LABS: Activated Partial Thrombo Time 32.6 Seconds (26.0-36.0)
[2019-02-12 01:06] LABS: BUN/Creatinine Ratio 22 (6-26); Blood Urea Nitrogen 20 mg/dL (8-23); Calcium 8.5 mg/dL (8.6-10.3); Carbon Dioxide 20 mEq/L (23-29); Chloride 110 mEq/L (98-107); Chol/HDL Ratio 4.7 (0-4.9); Cholesterol 170 mg/dL (< 200); Glucose 201 mg/dL (70-105); HDL Cholesterol 36 mg/dL (40-59); LDL Cholesterol,Calculated 114 mg/dL (0-99); Magnesium 1.9 mg/dL (1.6-2.6); Osmolality,Calculated 292 (280-300); Phosphorous 2.6 mg/dL (2.7-4.5); Potassium 3.5 mEq/L (3.5-5.1); Sodium 137 mEq/L (136-145); Triglycerides 100 mg/dL (< 150); eGFR For African Americans > 60 (> 60); eGFR For Non-African Americans > 60 (> 60)
[2019-02-12] MEDS ORDERED: Regadenoson 0.4 MG/5 ML SYRINGE IVP ONE (06:23)
[2019-02-12] MEDS ORDERED: *HR* Ticagrelor 90 MG TABLET PO SCH (09:00)
[2019-02-12] MEDS ORDERED: Aspirin Enteric Coated 81 MG Tablet PO SCH (09:00)
[2019-02-12] MEDS ORDERED: Loratadine 10 MG TABLET PO SCH (09:00)
[2019-02-12] MEDS ORDERED: Famotidine 20 MG TABLET PO SCH (09:00)
[2019-02-12] MEDS ORDERED: Budesonide/Formoterol 80/4.5 1 PUFF INH IH SCH (10:00)
[2019-02-12 11:34] VITALS: BP 116/74
== END 2019-02-12 13:45 | disposition left against medical advice (07) ==
LOC: 3BNU
PROVIDERS: ADMIT Internal Medicine; ATTEND Internal Medicine

== ENCOUNTER 2019-05-03 18:49 | Observation (INO) ==
[2019-05-03] MEDS ORDERED: Acetaminophen 325 MG TABLET PO PRN (23:07)
[2019-05-03] MEDS ORDERED: Naloxone 0.4 MG/ML INJ IVP PRN (23:07)
[2019-05-03] MEDS ORDERED: Mag Hydrox/Al Hydrox/Simeth 30 ML UDC PO PRN (23:07)
[2019-05-03] MEDS ORDERED: Morphine Sulfate 2 MG/ML SYRINGE IVP PRN (23:12)
[2019-05-03] MEDS: Nitroglycerin 1 INCH/GM PACKET TP SCH (23:32)
[2019-05-04 00:31] LABS: Bilirubin,Urine Negative (Negative); Blood,Urine Negative (Negative); Clarity,Urine Clear (Clear); Color,Urine Yellow (Yellow); Glucose,Urine (UA) Normal (Normal); Ketones,Urine Negative (Negative); Leukocyte Esterase,Urine Negative (Negative); Nitrite,Urine Negative (Negative); Protein,Urine Negative (Neg-Trace); Specific Gravity,Urine 1.021 (1.010-1.025); Urobilinogen,Urine Normal (Normal)
[2019-05-04 01:37] LABS: Basophils # 0.1 K/mcL (0.0-0.2); Basophils % 0.6 %; Eosinophils # 0.2 K/mcL (0.0-0.6); Hematocrit 47.2 % (37.5-50.1); Hemoglobin 15.7 g/dL (12.9-16.9); Immature Granulocytes % 0.4 % (0-4); Lymphocytes # 3.3 K/mcL (0.6-4.6); Lymphocytes % 33.8 %; Mean Corpuscular HGB Conc 33.3 g/dL (31.6-35.5); Mean Corpuscular Hemoglobin 31.2 pg (28.0-33.3); Mean Corpuscular Volume 93.8 fL (83.0-100.0); Monocytes # 0.9 K/mcL (0.0-1.3); Monocytes % 9.4 %; Neutrophils # 5.3 K/mcL (1.6-8.9); Platelet Count 203 K/mcL (140-400); Red Blood Count 5.03 M/mcL (4.19-5.50); Segmented Neutrophils % 53.8 %; White Blood Count 9.9 K/mcL (4.3-11.1)
[2019-05-04 01:42] LABS: Prothrombin Time 11.2 Seconds (9.4-12.1)
[2019-05-04 01:47] LABS: Alanine Aminotransferase 10 Units/L (7-52); Albumin 3.7 g/dL (3.5-5.7); Albumin/Globulin Ratio 1.7 (1.1-2.2); Alkaline Phosphatase 37 Units/L (34-104); Aspartate Amino Transferase 9 Units/L (13-39); BUN/Creatinine Ratio 19 (6-26); Bilirubin,Total 0.5 mg/dL (0.3-1.0); Blood Urea Nitrogen 15 mg/dL (8-23); Calcium 8.7 mg/dL (8.6-10.3); Carbon Dioxide 21 mEq/L (23-29); Chloride 111 mEq/L (98-107); Chol/HDL Ratio 3.8 (0-4.9); Cholesterol 134 mg/dL (< 200); Globulin 2.2 g/dL (2.4-3.5); Glucose 89 mg/dL (70-105); HDL Cholesterol 35 mg/dL (40-59); LDL Cholesterol,Calculated 81 mg/dL (0-99); Osmolality,Calculated 288 (280-300); Potassium 3.8 mEq/L (3.5-5.1); Sodium 139 mEq/L (136-145); Total Protein 5.9 g/dL (6.4-8.9); Triglycerides 88 mg/dL (< 150); eGFR For African Americans > 60 (> 60); eGFR For Non-African Americans > 60 (> 60)
[2019-05-04] MEDS ORDERED: Ipratropium/Albuterol Neb 3 ML IH PRN (03:45)
[2019-05-04] MEDS: Nitroglycerin 1 INCH/GM PACKET TP SCH ×2 (06:35→11:40)
[2019-05-04] MEDS: Aspirin Enteric Coated 81 MG Tablet PO SCH (07:45)
[2019-05-04] MEDS: Isosorbide MONOnitrate (24 HR) 60 MG TAB.ER.24H PO SCH (07:46)
[2019-05-04] MEDS: Budesonide/Formoterol 80/4.5 1 PUFF INH IH SCH ×2 (11:05→20:09)
[2019-05-04] MEDS: *HR* Heparin 5,000 UNIT/ML VIAL SQ SCH ×2 (13:51→16:22)
[2019-05-05] MEDS: Nitroglycerin 1 INCH/GM PACKET TP SCH ×2 (05:53→17:00)
[2019-05-05] MEDS: *HR* Heparin 5,000 UNIT/ML VIAL SQ SCH ×2 (05:56→17:46)
[2019-05-05] MEDS: Budesonide/Formoterol 80/4.5 1 PUFF INH IH SCH ×2 (07:54→21:30)
[2019-05-05 08:15] LABS: BUN/Creatinine Ratio 19 (6-26); Blood Urea Nitrogen 17 mg/dL (8-23); Calcium 8.5 mg/dL (8.6-10.3); Carbon Dioxide 21 mEq/L (23-29); Chloride 109 mEq/L (98-107); Glucose 99 mg/dL (70-105); Osmolality,Calculated 284 (280-300); Sodium 136 mEq/L (136-145); eGFR For African Americans > 60 (> 60); eGFR For Non-African Americans > 60 (> 60)
[2019-05-05] MEDS: Aspirin Enteric Coated 81 MG Tablet PO SCH (08:31)
[2019-05-05] MEDS: amLODIPine 5 MG TABLET PO SCH (08:31)
[2019-05-05] MEDS: Isosorbide MONOnitrate (24 HR) 60 MG TAB.ER.24H PO SCH (08:31)
[2019-05-05 08:53] LABS: Hematocrit 45.1 % (37.5-50.1); Hemoglobin 15.1 g/dL (12.9-16.9); Mean Corpuscular HGB Conc 33.5 g/dL (31.6-35.5); Mean Corpuscular Hemoglobin 30.9 pg (28.0-33.3); Mean Corpuscular Volume 92.4 fL (83.0-100.0); Mean Platelet Volume 10.9 fL (9.4-12.4); Platelet Count 208 K/mcL (140-400); Red Blood Count 4.88 M/mcL (4.19-5.50); Red Cell Distribution Width 12.8 % (11.5-14.5); White Blood Count 9.1 K/mcL (4.3-11.1)
[2019-05-05] MEDS ORDERED: ISOVUE-370 200 ML INFUS..BTL ONE (14:50)
[2019-05-05] MEDS ORDERED: 0.9 % Sodium Chloride 2,000 ML ONE (14:50)
[2019-05-05] MEDS ORDERED: *HR* Midazolam HCl 2 MG/2 ML VIAL ONE (14:50)
[2019-05-05] MEDS ORDERED: Nitroglycerin 1,000 MCG/10 ML VIAL IV ONE (14:50)
[2019-05-05] MEDS ORDERED: *HR* Heparin 10,000 UNIT/10 ML VIAL ONE (14:50)
[2019-05-05] MEDS ORDERED: *HR* FentaNYL (PF) 100 MCG/2 ML VIAL ONE (14:50)
[2019-05-05] MEDS ORDERED: Heparin 1,000 UNITS/500 mL 500 ML ONE (14:50)
[2019-05-06 05:36] LABS: Hematocrit 44.7 % (37.5-50.1); Hemoglobin 15.1 g/dL (12.9-16.9); Mean Corpuscular HGB Conc 33.8 g/dL (31.6-35.5); Mean Corpuscular Hemoglobin 30.9 pg (28.0-33.3); Mean Corpuscular Volume 91.6 fL (83.0-100.0); Mean Platelet Volume 10.9 fL (9.4-12.4); Platelet Count 184 K/mcL (140-400); Red Blood Count 4.88 M/mcL (4.19-5.50); Red Cell Distribution Width 12.5 % (11.5-14.5); White Blood Count 8.9 K/mcL (4.3-11.1)
[2019-05-06 05:42] LABS: BUN/Creatinine Ratio 18 (6-26); Blood Urea Nitrogen 15 mg/dL (8-23); Calcium 8.7 mg/dL (8.6-10.3); Carbon Dioxide 20 mEq/L (23-29); Chloride 109 mEq/L (98-107); Glucose 93 mg/dL (70-105); Osmolality,Calculated 281 (280-300); Potassium 3.9 mEq/L (3.5-5.1); Sodium 135 mEq/L (136-145); eGFR For African Americans > 60 (> 60); eGFR For Non-African Americans > 60 (> 60)
[2019-05-06] MEDS: Nitroglycerin 1 INCH/GM PACKET TP SCH (06:09)
[2019-05-06] MEDS: *HR* Heparin 5,000 UNIT/ML VIAL SQ SCH (06:12)
[2019-05-06] MEDS: Budesonide/Formoterol 80/4.5 1 PUFF INH IH SCH (07:15)
[2019-05-06 08:33] VITALS: BP 113/72
[2019-05-06] MEDS: Isosorbide MONOnitrate (24 HR) 60 MG TAB.ER.24H PO SCH (08:49)
[2019-05-06] MEDS: amLODIPine 5 MG TABLET PO SCH (08:49)
[2019-05-06] MEDS: Aspirin Enteric Coated 81 MG Tablet PO SCH (08:49)
[2019-05-06] MEDS ORDERED: FLU Vac QV 19-20 (6Month+)/PF 0.5 ML SYRINGE IM ONE (08:55)
== END 2019-05-06 15:45 | disposition home or self-care (01) ==
LOC: 2ANU → SUATTDRO 21:20
PROVIDERS: ADMIT Internal Medicine; ATTEND Family Medicine

== ENCOUNTER 2019-07-11 23:25 | Observation (INO) ==
[2019-07-11 03:52] LABS: Basophils # 0.1 K/mcL (0.0-0.2); Basophils % 0.6 %; Eosinophils # 0.2 K/mcL (0.0-0.6); Eosinophils % 2.4 %; Hematocrit 45.3 % (37.5-50.1); Hemoglobin 15.2 g/dL (12.9-16.9); Immature Granulocytes % 0.3 % (0-4); Lymphocytes # 2.8 K/mcL (0.6-4.6); Lymphocytes % 30.2 %; Mean Corpuscular HGB Conc 33.6 g/dL (31.6-35.5); Mean Corpuscular Hemoglobin 31.3 pg (28.0-33.3); Mean Corpuscular Volume 93.4 fL (83.0-100.0); Mean Platelet Volume 10.4 fL (9.4-12.4); Monocytes # 0.9 K/mcL (0.0-1.3); Monocytes % 10.2 %; Neutrophils # 5.2 K/mcL (1.6-8.9); Platelet Count 209 K/mcL (140-400); Red Blood Count 4.85 M/mcL (4.19-5.50); Red Cell Distribution Width 12.8 % (11.5-14.5); Segmented Neutrophils % 56.3 %; White Blood Count 9.2 K/mcL (4.3-11.1)
[2019-07-11 04:11] LABS: BUN/Creatinine Ratio 24 (6-26); Blood Urea Nitrogen 20 mg/dL (8-23); Calcium 8.6 mg/dL (8.6-10.3); Carbon Dioxide 19 mEq/L (23-29); Chloride 109 mEq/L (98-107); Glucose 103 mg/dL (70-105); Osmolality,Calculated 285 (280-300); Phosphorous 3.7 mg/dL (2.7-4.5); Potassium 4.3 mEq/L (3.5-5.1); Sodium 136 mEq/L (136-145); eGFR For African Americans > 60 (> 60); eGFR For Non-African Americans > 60 (> 60)
[2019-07-11] MEDS: *HR* Heparin 5,000 UNIT/ML VIAL SQ SCH ×2 (05:49→17:34)
[2019-07-11] MEDS: Ipratropium/Albuterol Neb 3 ML IH SCH ×4 (06:07→21:55)
[2019-07-11] MEDS: Isosorbide MONOnitrate (24 HR) 30 MG TAB.ER.24H PO SCH (09:08)
[2019-07-11] MEDS: amLODIPine 5 MG TABLET PO SCH (09:09)
[2019-07-11] MEDS: Nicotine 14 MG PATCH.TD24 TD SCH (09:09)
[~2019-07-11 23:25] MED LIST changes: +0.9 % Sodium Chloride 1,000 ML IVC SCH; -Acetaminophen 325 MG TABLET PO PRN; +Albuterol 2.5 MG/3 ML NEBULIZER IH PRN; +Aspirin 81 MG TAB.CHEW PO ONE; +Ipratropium/Albuterol Neb 3 ML IH PRN; +Isosorbide MONOnitrate (24 HR) 60 MG TAB.ER.24H PO SCH; +NON-FORMULARY MEDICATION 1 EACH EACH (Umeclidinium Brm/Vilanterol Tr [Anoro Ellipta 62.5-2 PO SCH; +Nicotine 2 MG GUM BC PRN; +Nitroglycerin 0.4 MG TAB.SUBL SL PRN
[2019-07-12] MEDS ORDERED: *HR* Heparin 5,000 UNIT/ML VIAL SQ SCH (03:23)
[2019-07-12] MEDS: Ipratropium/Albuterol Neb 3 ML IH SCH (04:03)
[2019-07-12] MEDS: *HR* Heparin 5,000 UNIT/ML VIAL SQ SCH (05:54)
[2019-07-12 06:56] VITALS: BP 103/65
[2019-07-12] MEDS: Isosorbide MONOnitrate (24 HR) 30 MG TAB.ER.24H PO SCH (08:07)
[2019-07-12] MEDS: amLODIPine 5 MG TABLET PO SCH (08:08)
[2019-07-12] MEDS: Nicotine 14 MG PATCH.TD24 TD SCH (08:08)
[2019-07-12] MEDS ORDERED: Aspirin Enteric Coated 81 MG Tablet PO SCH (09:00)
== END 2019-07-12 10:10 | disposition home or self-care (01) ==
LOC: 3BNU
PROVIDERS: ADMIT Family Medicine; ATTEND Family Medicine

== ENCOUNTER 2020-04-15 17:37 | Observation (INO) ==
[2020-04-15] MEDS ORDERED: Ondansetron 4 MG/2 ML VIAL IVP PRN (21:34)
[2020-04-15] MEDS ORDERED: Naloxone 0.4 MG/ML INJ IVP PRN (21:34)
[2020-04-16 01:46] LABS: Basophils # 0.1 K/mcL (0.0-0.2); Basophils % 0.6 %; Eosinophils # 0.1 K/mcL (0.0-0.6); Eosinophils % 1.6 %; Hematocrit 43.9 % (37.5-50.1); Immature Granulocytes % 0.5 % (0-4); Lymphocytes # 3.3 K/mcL (0.6-4.6); Lymphocytes % 37.7 %; Mean Corpuscular HGB Conc 34.2 g/dL (31.6-35.5); Mean Corpuscular Hemoglobin 31.5 pg (28.0-33.3); Mean Corpuscular Volume 92.2 fL (83.0-100.0); Mean Platelet Volume 10.8 fL (9.4-12.4); Monocytes # 0.8 K/mcL (0.0-1.3); Monocytes % 8.7 %; Neutrophils # 4.5 K/mcL (1.6-8.9); Platelet Count 193 K/mcL (140-400); Red Blood Count 4.76 M/mcL (4.19-5.50); Red Cell Distribution Width 12.9 % (11.5-14.5); Segmented Neutrophils % 50.9 %; White Blood Count 8.7 K/mcL (4.3-11.1)
[2020-04-16 02:04] LABS: BUN/Creatinine Ratio 19 (6-26); Blood Urea Nitrogen 15 mg/dL (8-23); Calcium 8.4 mg/dL (8.6-10.3); Carbon Dioxide 19 mEq/L (23-29); Chloride 106 mEq/L (98-107); Glucose 127 mg/dL (70-105); Osmolality,Calculated 278 (280-300); Potassium 3.7 mEq/L (3.5-5.1); Sodium 133 mEq/L (136-145); eGFR For African Americans > 60 (> 60); eGFR For Non-African Americans > 60 (> 60)
[2020-04-16 02:05] LABS: Troponin I < 0.03 ng/mL (< 0.04)
[2020-04-16] MEDS ORDERED: *HR* Heparin 5,000 UNIT/ML VIAL SQ SCH (06:00)
[2020-04-16] MEDS ORDERED: polyethylene glycoL 3350 17 GM POWD.PACK PO PRN (07:23)
[2020-04-16] MEDS ORDERED: Albuterol 2.5 MG/3 ML NEBULIZER IH SCH ×2 (07:30→10:00)
[2020-04-16 07:46] VITALS: BP 123/78
[2020-04-16] MEDS ORDERED: Isosorbide MONOnitrate (24 HR) 30 MG TAB.ER.24H PO SCH (09:00)
[2020-04-16] MEDS ORDERED: Loratadine 10 MG TABLET PO SCH (09:00)
[2020-04-16] MEDS ORDERED: Venlafaxine XR (24 HR) 75 MG CAP.ER.24H PO SCH (09:00)
[2020-04-16] MEDS ORDERED: Famotidine 20 MG TABLET PO SCH (09:00)
[2020-04-16] MEDS ORDERED: Tiotropium 10 INH DOSE IH SCH (10:00)
[2020-04-16] MEDS ORDERED: Regadenoson 0.4 MG/5 ML SYRINGE IVP ONE (10:18)
[2020-04-16] MEDS ORDERED: Melatonin 3 MG TABLET PO SCH (21:00)
== END 2020-04-16 14:36 | disposition left against medical advice (07) ==
LOC: 3BNU → SUATTDRO 20:22
PROVIDERS: ADMIT Internal Medicine; ATTEND Internal Medicine

== ENCOUNTER 2021-11-09 09:13 | Inpatient (IN) ==
[2021-11-09] MEDS ORDERED: Heparin 1,000 UNITS/500 mL 500 ML ONE (10:16)
[2021-11-09] MEDS ORDERED: Nitroglycerin 1,000 MCG/5 ML VIAL IV ONE (10:16)
[2021-11-09] MEDS ORDERED: *HR* Midazolam HCl 2 MG/2 ML VIAL ONE (10:16)
[2021-11-09] MEDS ORDERED: Iopamidol - 370 200 ML INFUS..BTL ONE (10:16)
[2021-11-09] MEDS ORDERED: *HR* FentaNYL (PF) 100 MCG/2 ML VIAL ONE (10:16)
[2021-11-09] MEDS ORDERED: *HR* Heparin 10,000 UNIT/10 ML VIAL ONE (10:16)
[2021-11-09] MEDS ORDERED: 0.9 % Sodium Chloride 2,000 ML ONE (10:16)
[2021-11-09] MEDS ORDERED: *HR* Bivalirudin 250 MG VIAL IVC ONE (10:26)
[2021-11-09] MEDS ORDERED: Nitroglycerin 0.4 MG TAB.SUBL SL PRN (11:18)
[2021-11-09] MEDS ORDERED: 0.9 % Sodium Chloride 1,000 ML IVC SCH (11:30)
[2021-11-09] MEDS ORDERED: *HR* Atropine Sulfate 1 MG/10 ML SYRINGE ONE (11:40)
[2021-11-09] MEDS: Nicotine 14 MG PATCH.TD24 TD SCH (15:52)
[2021-11-09] MEDS: *HR* Heparin 5,000 UNIT/ML VIAL SQ SCH (17:22)
[2021-11-09] MEDS: *HR* Ticagrelor 90 MG TABLET PO SCH (19:40)
[2021-11-10] MEDS ORDERED: Acetaminophen 325 MG TABLET PO PRN ×2 (04:28→12:40)
[2021-11-10] MEDS: *HR* Heparin 5,000 UNIT/ML VIAL SQ SCH ×2 (05:26→17:25)
[2021-11-10 06:16] LABS: BUN/Creatinine Ratio 20 (6-26); Blood Urea Nitrogen 16 mg/dL (8-23); Calcium 8.9 mg/dL (8.6-10.3); Carbon Dioxide 21 mEq/L (23-29); Chloride 106 mEq/L (98-107); Chol/HDL Ratio 5.1 (0-4.9); Cholesterol 194 mg/dL (< 200); Glucose 110 mg/dL (70-105); HDL Cholesterol 38 mg/dL (40-59); LDL Cholesterol,Calculated 127 mg/dL (< 100); Osmolality,Calculated 278 (280-300); Potassium 4.2 mEq/L (3.5-5.1); Sodium 133 mEq/L (136-145); Triglycerides 145 mg/dL (< 150)
[2021-11-10] MEDS: *HR* Ticagrelor 90 MG TABLET PO SCH ×2 (07:37→20:14)
[2021-11-10] MEDS: Nicotine 14 MG PATCH.TD24 TD SCH (07:38)
[2021-11-10] MEDS ORDERED: Aspirin 81 MG TAB.CHEW PO SCH (09:00)
[2021-11-10] MEDS ORDERED: lisinopriL 5 MG TABLET PO SCH (09:00)
[2021-11-10 09:30] LABS: Basophils # 0.1 K/mcL (0.0-0.2); Basophils % 0.5 %; Eosinophils # 0.3 K/mcL (0.0-0.6); Eosinophils % 2.9 %; Hematocrit 45.3 % (37.5-50.1); Hemoglobin 15.8 g/dL (12.9-16.9); Immature Granulocytes % 0.6 % (0-4); Lymphocytes # 2.7 K/mcL (0.6-4.6); Lymphocytes % 27.6 %; Mean Corpuscular HGB Conc 34.9 g/dL (31.6-35.5); Mean Corpuscular Hemoglobin 31.8 pg (28.0-33.3); Mean Corpuscular Volume 91.1 fL (83.0-100.0); Mean Platelet Volume 10.2 fL (9.4-12.4); Monocytes # 0.9 K/mcL (0.0-1.3); Monocytes % 9.6 %; Neutrophils # 5.7 K/mcL (1.6-8.9); Platelet Count 213 K/mcL (140-400); Red Blood Count 4.97 M/mcL (4.19-5.50); Segmented Neutrophils % 58.8 %; White Blood Count 9.7 K/mcL (4.3-11.1)
[2021-11-10] MEDS ORDERED: Nitroglycerin 0.4 MG TAB.SUBL SL PRN (12:40)
[2021-11-11] MEDS: *HR* Heparin 5,000 UNIT/ML VIAL SQ SCH (05:57)
[2021-11-11] MEDS: *HR* Ticagrelor 90 MG TABLET PO SCH (07:18)
[2021-11-11] MEDS ORDERED: Aspirin 81 MG TAB.CHEW PO SCH (09:00)
[2021-11-11] MEDS ORDERED: lisinopriL 5 MG TABLET PO SCH (09:00)
[2021-11-11] MEDS ORDERED: Nicotine 14 MG PATCH.TD24 TD SCH (09:00)
[2021-11-11 11:49] VITALS: BP 104/65; TEMP 98
[2021-11-11 12:10] VITALS: PULSE 64; O2SAT 94
== END 2021-11-11 13:23 | disposition home or self-care (01) | DRG 247 ==
LOC: ICNU → 2NNU 11-10 15:31
PROVIDERS: ADMIT Internal Medicine Cardiovascular Disease; ATTEND Internal Medicine Interventional Cardiology